=== PATIENT | female | born 1935 | race Caucasian/White ===

== ENCOUNTER 2017-01-04 16:59 | Emergency (ER) | payer OTHER, MEDICARE ==
[2017-01-04 17:03] VITALS: BP 149/66; PULSE 76; TEMP 97.8; BMI 27.4
--- NOTE | 2017-01-04 17:23 | PDOC ---
History of Present Illness - General History Source: Patient Exam Limitations: No Limitations - History of Present Illness Initial Comments: 01/04/17 18:33 The patient is a 81 year old female, with a significant past medical history of HTN who presents to the emergency department with headache and numbness to the left side of the head since last night. The patient reports last night having a gradual worsenig headache that at it's worst was 10/10 in pain intesnity lasted ~45 min, and afterewards she developed a tingling sensation in her scalp on the left side. The patient reports taking Tylenol with the onset of her symptoms last night eliciting some alleviation of her headache, which has mostly resolved upon ED arrival. She called her doctor who told her to come to the ED for evaluation. She describes her numbness/tingling is localized at the top/ left side of her head. She denies any visionc hanges, back pain, changes in her speech, or any UE/LE numbness/weakness and tingling. She also arrives with some neck stiffness/pain that she gets occasionally. She denies recent fevers, chills , weakness or dizziness. She denies recent nausea, vomit, diarrhea or constipation. She denies recent dysuria, frequency, urgency or hematuria. She denies recent chest pain or shortness of breath. Allergies: See Nursing Notes Past surgical history: None reported. Social history: Nonsmoker. Denies EtOH use and recreational drug use. Primary Care Physician: <Etienne Loco - Last Filed: 01/04/17 18:33> <Edson Callahan - Last Filed: 01/04/17 19:03> <Rosanne Mast - Last Filed: 01/04/17 20:51> - General Chief Complaint: Head/Neck problem Stated Complaint: PCP SENT/NUMBNESS Time Seen by Provider: 01/04/17 17:16 Past History <Etienne Loco - Last Filed: 01/04/17 18:33> - Past Medical History HTN: Yes - Surgical History Abdominal Surgery: Yes (sbo) Cholecystectomy: Yes - Psycho/Social/Smoking Cessation Hx Anxiety: No Suicidal Ideation: No Smoking History: Never smoked Hx Alcohol Use: No Drug/Substance Use Hx: No Substance Use Type: None <Edson Callahan - Last Filed: 01/04/17 19:03> <Rosanne Mast - Last Filed: 01/04/17 20:51> - Past Medical History Allergies/Adverse Reactions: Allergies Allergy/AdvReac Type Severity Reaction Status Date / Time levofloxacin [From Levaquin] Allergy Verified 01/04/17 17:03 meperidine HCl [From Demerol] Allergy Verified 01/04/17 17:03 Penicillins Allergy Verified 01/04/17 17:03 Home Medications: Ambulatory Orders Unobtainable [Unobtainable] 03/17/15 Review of Systems - Review of Systems Able to Perform ROS?: Yes Comments:: 01/04/17 18:33 CONSTITUTIONAL: No reported: Fever, Chills, Diaphoresis, Generalized Weakness, Malaise, Loss of Appetite HEENT: No reported: Rhinorrhea, Nasal Congestion, Throat Pain, Throat Swelling, Difficulty Swallowing, Mouth Swelling, Ear Pain, Eye Pain, Visual Changes CARDIOVASCULAR: No reported: Chest Pain, Syncope, Palpitations, Irregular Heart Rate, Lightheadedness, Peripheral Edema RESPIRATORY: No reported: Cough, Shortness of Breath, SOB with Exertion, Orthopnea, Wheezing , Stridor, Hemoptysis GASTROINTESTINAL: No reported: Abdominal pain, Abdominal Distension, Nausea, Vomiting, Diarrhea, Constipation, Melena, Hematochezia GENITOURINARY: No reported: Dysuria, Frequency, Urgency, Hesitancy, Flank Pain, Genital Pain MUSCULOSKELETAL: +mild Neck Pain. No reported: Myalgia, Arthralgia, Joint Swelling, Back pain SKIN: No reported: Rash, Itching, Pallor HEMATOLOGIC/IMMUNOLOGIC: No reported: Easy Bleeding, Easy Bruising, Lymphadenopathy, Frequent infections ENDOCRINE: No reported: Unexplained Weight Gain, Unexplained Weight Loss, Heat Intolerance , Cold Intolerance NEUROLOGIC: +Headache, head numbness. No reported: Focal Weakness, Paresthesias, Vertigo, Lightheadedness, Unsteady Gait, Seizure, Mental Status Changes, Incontinence PSYCHIATRIC: No reported: Anxiety, Depression <Etienne Loco - Last Filed: 01/04/17 18:33> *Physical Exam - Vital Signs Last Vital Signs Temp Pulse Resp BP Pulse Ox 97.8 F 76 20 149/66 96 01/04/17 17:00 01/04/17 17:00 01/04/17 17:00 01/04/17 17:00 01/04/17 17:00 - Physical Exam Comments: 01/04/17 18:33 GENERAL: The patient is awake, alert, and fully oriented, Nontoxic - in no acute distress. HEAD: Normocephalic, atraumatic. EYES: extraocular movements intact, sclera anicteric, conjunctiva clear. ENT: Normal voice, Moist mucous membranes. NECK: Normal range of motion, supple, No mildline cervical tenderness LUNGS: Breath sounds equal, clear to auscultation bilaterally. No wheezes, no rhonchi, no rales. HEART: Regular rate and rhythm, without murmur, rub or gallop. ABDOMEN: Soft, nontender, normoactive bowel sounds. No guarding, no rebound.No CVA tenderness EXTREMITIES: Normal range of motion, no edema. No clubbing or cyanosis. No cords , erythema, or tenderness. NEURO: Mental status: The patient is oriented x3. Cranial nerves: Cranial nerves II through XII are intact Motor: The upper extremities are 5 over 5 in all muscle groups. The lower extremities are 5 over 5 in all muscle groups. No pronator drift. Sensation: Sensation is intact to light touch throughout. with exception of her calep along C2 distription on left side where she states she can feels strange, Neg romberg Cerebellar: Sejisu-cqgwva-zehk is normal in both upper extremities. Heel-knee- roblero is normal in both lower extremities. Reflexes: 2+ and symmetric in the upper and lower extremities. Gait: Normal. Heel and toe walking are normal. Tandem gait is normal. PSYCH: Normal mood, normal affect. SKIN: Warm, Dry, normal turgor. <Etienne Loco - Last Filed: 01/04/17 18:33> - Vital Signs Last Vital Signs Temp Pulse Resp BP Pulse Ox 97.8 F 76 20 149/66 96 01/04/17 17:00 01/04/17 17:00 01/04/17 17:00 01/04/17 17:00 01/04/17 17:00 <Edson Callahan - Last Filed: 01/04/17 19:03> - Vital Signs Last Vital Signs Temp Pulse Resp BP Pulse Ox 97.8 F 76 20 149/66 96 01/04/17 17:00 01/04/17 17:00 01/04/17 17:00 01/04/17 17:00 01/04/17 17:00 <Rosanne Mast - Last Filed: 01/04/17 20:51> ED Treatment Course - LABORATORY CBC & Chemistry Diagram: 01/04/17 18:00 01/04/17 18:00 <Etienne Loco - Last Filed: 01/04/17 18:33> - LABORATORY CBC & Chemistry Diagram: 01/04/17 18:00 01/04/17 18:00 <Edson Callahan - Last Filed: 01/04/17 19:03> - LABORATORY CBC & Chemistry Diagram: 01/04/17 18:00 01/04/17 18:00 - ADDITIONAL ORDERS Additional order review: Laboratory Results 01/04/17 18:00 Sodium 133 L Potassium 4.1 Chloride 93 L Carbon Dioxide 29 Anion Gap 11 BUN 23 H Creatinine 0.8 Creat Clearance w eGFR > 60 Random Glucose 110 H Calcium 9.8 Total Bilirubin 1.1 H AST 23 ALT 24 Alkaline Phosphatase 82 Total Protein 8.2 Albumin 4.0 01/04/17 18:00 RBC 5.09 MCV 81.8 MCHC 34.0 RDW 13.7 MPV 8.1 Neutrophils % 68.8 Lymphocytes % 19.3 Monocytes % 9.5 Eosinophils % 1.2 Basophils % 1.2 - Medications Given in the ED: ED Medications Discontinued Medications Generic Name Dose Route Start Last Admin Trade Name Elenita PRN Reason Stop Dose Admin Metoclopramide HCl 10 mg 01/04/17 17:47 01/04/17 18:09 Reglan Injection - IVPUSH 01/04/17 17:48 10 mg ONCE ONE Administration <Rosanne Mast - Last Filed: 01/04/17 20:51> Medical Decision Making - Medical Decision Making 01/04/17 17:48 81y F hx of htn, sent by PMD for evaluation of headache and scalp tingling. headache resolved, now pt iwth tingling/sensation change on her L scalp, sensation intact but ?c2 radiculopathy? consider possible cva however the distribtion of her sensation are highly atypical neuro exam unremarkable will obtain ct head, cspine pt well appearing otherwise A portion of this note was documented by scribe services under my direction. I have reviewed the details of the note, within reason, and agree with the documentation with the following case summary and management plan written by me 01/04/17 19:03 pt will be signed out to dr. velasquez to fu with results and dispo patient <Edson Callahan - Last Filed: 01/04/17 19:03> - Medical Decision Making 01/04/17 20:[address] Johnnie Kelly who is covering for Dr. Cliff Sterling (via answering service) Awaiting call back 01/04/17 20:51 Patient's case discussed with Dr. Kelly <Rosanne Mast - Last Filed: 01/04/17 20:51> *DC/Admit/Observation/Transfer - Attestations Scribe Attestion: 01/04/17 17:41 Documentation prepared by Etienne Loco, acting as medical device sales consultant for Edson Callahan MD. <Etienne Loco - Last Filed: 01/04/17 18:33> <Edson Callahan - Last Filed: 01/04/17 19:03> <Rosanne Mast - Last Filed: 01/04/17 20:51> - Referrals Referrals: STAFF,NOT ON [Primary Care Provider] -
[2017-01-04] MEDS ORDERED: METOCLOPRAMIDE HCL INJECTION 10 MG/2 ML VIAL IVPUSH ONE (17:47)
[2017-01-04] MEDS ORDERED: METOCLOPRAMIDE HCL INJECTION 10 MG/2 ML VIAL ONE (18:04)
[2017-01-04 18:09] LABS: BASOPHIL 1.2 % (0-2.0); EOSINOPHIL 1.2 % (0-4.5); MCH 27.8 pg (25.7-33.7); MEAN CELL VOLUME 81.8 fl (80-96); MEAN PLT VOLUME 8.1 fl (7.5-11.1); NEUTROPHILS 68.8 % (42.8-82.8); PLATELET COUNT 317 K/MM3 (134-434); RDW 13.7 % (11.6-15.6); WHITE BLOOD COUNT 10.1 K/mm3 (4.0-10.0)
[2017-01-04 18:32] LABS: ANION GAP 11 (8-16); BILIRUBIN,TOTAL 1.1 mg/dL (0.2-1.0); CALCIUM 9.8 mg/dL (8.5-10.1); CO2 29 mmol/L (21-32); CREATININE 0.8 mg/dL (0.55-1.02); GLUCOSE,RANDOM 110 mg/dL (74-106); SGPT/ALT 24 U/L (12-78); TOT PROT 8.2 g/dl (6.4-8.2)
[2017-01-04 18:33] LABS: ALK PHOS 82 U/L (45-117)
[2017-01-04 18:34] LABS: SGOT/AST 23 U/L (15-37)
--- NOTE | 2017-01-04 20:55 | PDOC ---
*Physical Exam - Vital Signs Last Vital Signs Temp Pulse Resp BP Pulse Ox 97.8 F 76 20 149/66 96 01/04/17 17:00 01/04/17 17:00 01/04/17 17:00 01/04/17 17:00 01/04/17 17:00 <James Nuno - Last Filed: 01/04/17 20:52> - Vital Signs Last Vital Signs Temp Pulse Resp BP Pulse Ox 97.8 F 76 20 149/66 96 01/04/17 17:00 01/04/17 17:00 01/04/17 17:00 01/04/17 17:00 01/04/17 17:00 <Rosanne Mast - Last Filed: 01/04/17 21:05> ED Treatment Course - LABORATORY CBC & Chemistry Diagram: 01/04/17 18:00 01/04/17 18:00 - ADDITIONAL ORDERS Additional order review: Laboratory Results 01/04/17 18:00 Sodium 133 L Potassium 4.1 Chloride 93 L Carbon Dioxide 29 Anion Gap 11 BUN 23 H Creatinine 0.8 Creat Clearance w eGFR > 60 Random Glucose 110 H Calcium 9.8 Total Bilirubin 1.1 H AST 23 ALT 24 Alkaline Phosphatase 82 Total Protein 8.2 Albumin 4.0 01/04/17 18:00 RBC 5.09 MCV 81.8 MCHC 34.0 RDW 13.7 MPV 8.1 Neutrophils % 68.8 Lymphocytes % 19.3 Monocytes % 9.5 Eosinophils % 1.2 Basophils % 1.2 - Medications Given in the ED: ED Medications Discontinued Medications Generic Name Dose Route Start Last Admin Trade Name Freq PRN Reason Stop Dose Admin Metoclopramide HCl 10 mg 01/04/17 17:47 01/04/17 18:09 Reglan Injection - IVPUSH 01/04/17 17:48 10 mg ONCE ONE Administration <James Nuno - Last Filed: 01/04/17 20:52> - LABORATORY CBC & Chemistry Diagram: 01/04/17 18:00 01/04/17 18:00 - ADDITIONAL ORDERS Additional order review: Laboratory Results 01/04/17 18:00 Sodium 133 L Potassium 4.1 Chloride 93 L Carbon Dioxide 29 Anion Gap 11 BUN 23 H Creatinine 0.8 Creat Clearance w eGFR > 60 Random Glucose 110 H Calcium 9.8 Total Bilirubin 1.1 H AST 23 ALT 24 Alkaline Phosphatase 82 Total Protein 8.2 Albumin 4.0 01/04/17 18:00 RBC 5.09 MCV 81.8 MCHC 34.0 RDW 13.7 MPV 8.1 Neutrophils % 68.8 Lymphocytes % 19.3 Monocytes % 9.5 Eosinophils % 1.2 Basophils % 1.2 - Medications Given in the ED: ED Medications Discontinued Medications Generic Name Dose Route Start Last Admin Trade Name Elenita PRN Reason Stop Dose Admin Metoclopramide HCl 10 mg 01/04/17 17:47 01/04/17 18:09 Reglan Injection - IVPUSH 01/04/17 17:48 10 mg ONCE ONE Administration <Rosanne Mast - Last Filed: 01/04/17 21:05> Medical Decision Making - Medical Decision Making 01/04/17 20:[address] Johnnie Kelly who is covering for Dr. Cliff Sterling (via answering service) Awaiting call back 01/04/17 20:51 Patient's case discussed with Dr. Kelly <Rosanne Mast - Last Filed: 01/04/17 21:05> *DC/Admit/Observation/Transfer - Discharge Dispostion Admit: No <James Nuno - Last Filed: 01/04/17 20:52> <Rosanne Mast - Last Filed: 01/04/17 21:05> Diagnosis at time of Disposition: Scalp pain - Referrals Referrals: STAFF,NOT ON [Primary Care Provider] - Cliff Sterling MD [Staff Physician] - - Patient Instructions Printed Discharge Instructions: DI for Numbness/tingling Additional Instructions: Please follow up with Dr. Sterling to continue evaluating the pain as needed. - Post Discharge Activity
== END 2017-01-04 21:03 | disposition home or self-care (01) ==
LOC: JER 16:59
PROC: 3E033GC Introduction of Other Therapeutic Substance into Peripheral Vein, Percutaneous Approach (ICD-10-PCS; principal; 2017-01-04)
DX: R51 Headache (principal); I10 Essential (primary) hypertension
CPT/HCPCS: 36415; 70450-TC; 72125-TC; 80053; 85025; 99282-25

== ENCOUNTER 2017-05-10 17:17 | Emergency (ER) | payer OTHER, MEDICARE ==
[2017-05-10 17:36] VITALS: TEMP 98; BMI 27.6
--- NOTE | 2017-05-10 17:54 | PDOC ---
History of Present Illness - General Chief Complaint: Injury Stated Complaint: FALL INJURY Time Seen by Provider: 05/10/17 17:53 - History of Present Illness Initial Comments: 81 year old female with HTN and HLD presenting with right ankle pain and occipital scalp pain after a mechanical fall. She was walking up two stairs with a plethora of heavy grocery bags and fell backward inverting her ankle and striking the back of her head on the ground. She said she could not bear weight on her ankle directly after the fall and immediately noticed a deformity with swelling. She denies any bleeding or skin breakage. She denies LOC, extended disorientation, palpitations prior to fall, presyncopal sensation prior to fall , speech difficulty or any focal neurological signs. She is not on blood thinners and this is her first fall. 05/10/17 18:12 Past History - Past Medical History Allergies/Adverse Reactions: Allergies Allergy/AdvReac Type Severity Reaction Status Date / Time azithromycin Allergy Verified 05/10/17 17:57 levofloxacin [From Levaquin] Allergy Verified 05/10/17 17:36 lisinopril [From Zestril] Allergy Verified 05/10/17 17:58 meperidine HCl [From Demerol] Allergy Verified 05/10/17 17:36 Penicillins Allergy Verified 05/10/17 17:36 sulphur Allergy Uncoded 05/10/17 17:57 Home Medications: Ambulatory Orders Calcium Carbonate [Super Calcium] 1,200 mg PO DAILY 05/10/17 Cyanocobalamin [Vitamin B12 -] 1,000 mcg PO DAILY 05/10/17 Irbesartan/Hydrochlorothiazide [Irbesartan-Hctz 300-12.5 mg Tb] 1 each PO AM Metoprolol Succinate [Toprol Xl -] 100 mg PO DAILY 05/10/17 Metoprolol Succinate [Toprol Xl] 50 mg PO HS 05/10/17 Multivit-Min/FA/Lycopen/Lutein [Centrum Silver Tablet] 1 each PO DAILY 05/10/17 Nifedipine ER [Procardia Xl -] 60 mg PO DAILY 05/10/17 Pitavastatin Calcium [Livalo] 2 mg PO HS 05/10/17 Vitamin B Complex Vit C No.4 [Super B Complex] 150 mg PO DAILY 05/10/17 HTN: Yes Hypercholesterolemia: Yes - Surgical History Abdominal Surgery: Yes (sbo) Cholecystectomy: Yes - Suicide/Smoking/Psychosocial Hx Smoking History: Never smoked Hx Alcohol Use: No Drug/Substance Use Hx: No Substance Use Type: None Review of Systems - Review of Systems Constitutional: No: Chills, Fever HEENTM: No: Blurred Vision, Recent change in vision Respiratory: No: Cough Cardiac (ROS): No: Chest Pain ABD/GI: No: Nausea, Poor Appetite, Vomiting : No: Dysuria, Hematuria Musculoskeletal: Yes: Joint Pain, Joint Swelling Neurological: No: Headache, Numbness *Physical Exam - Vital Signs Last Vital Signs Temp Pulse Resp BP Pulse Ox 98.0 F 82 20 154/60 96 05/10/17 17:32 05/10/17 17:32 05/10/17 17:32 05/10/17 17:32 05/10/17 17:32 - Physical Exam General Appearance: Yes: Nourished, Appropriately Dressed. No: Apparent Distress HEENT: positive: EOMI, ANDRÉS, Normal ENT Inspection, Normal Voice, Other (Scalp hematoma in superior left occiput.) Neck: positive: Trachea midline, Normal Thyroid. negative: Tender Respiratory/Chest: positive: Lungs Clear, Normal Breath Sounds. negative: Chest Tender, Respiratory Distress Cardiovascular: positive: Regular Rhythm, Regular Rate, S1, S2. negative: Murmur Gastrointestinal/Abdominal: positive: Normal Bowel Sounds, Flat, Soft. negative : Tender Musculoskeletal: negative: Normal Inspection (Right LE with significant edema around the lateral and medial maleolus. Unable to palpate or range ankle without pain. Some distal tibial and fibular tenderness too. No tenderness or Limited ROM in RLE or at left knee or left hip.) Extremity: positive: Normal Capillary Refill, Normal Inspection. negative: Normal Range of Motion, Tender Integumentary: positive: Normal Color, Dry, Warm Neurologic: positive: decision support manager II-XII NML intact, Fully Oriented, Alert, Normal Mood/ Affect, Normal Response ED Treatment Course - LABORATORY CBC & Chemistry Diagram: 05/10/17 18:25 05/10/17 18:25 Medical Decision Making - Medical Decision Making 81 year old female with headache and ankle pain after a fall. Superior occipital hematoma. Subarachnoid hemorrhage found on head CT in central sulcus. Case discussed with Dr. Montero (neurosurgery) at [facility] at 21:30 and he accepted the patient for transfer. Ankle film demonstrated comminuted distal fibula and tibia fractures. Patient transferred to [facility] via ACLS with pressures of 140s/60s and pain controlled on low dose Fentanyl 50 mcg and Tylenol 1g. Films were electronically and physically sent with [facility]. 05/10/17 19:38 05/10/17 22:30 *DC/Admit/Observation/Transfer Diagnosis at time of Disposition: Subarachnoid hemorrhage, Fracture of shaft of tibia - Discharge Dispostion Disposition: TRANSFER ACUTE CARE/OTHER HOSP - Transfer to Acute Care Facility Receiving Facility: [facility].
[2017-05-10 18:36] LABS: EOSINOPHIL 0.9 % (0-4.5); MCH 27.4 pg (25.7-33.7); MCHC 34.1 g/dl (32.0-36.0); MEAN CELL VOLUME 80.2 fl (80-96); MEAN PLT VOLUME 7.8 fl (7.5-11.1); NEUTROPHILS 74.8 % (42.8-82.8); PLATELET COUNT 318 K/MM3 (134-434); RDW 14.3 % (11.6-15.6); WHITE BLOOD COUNT 12.1 K/mm3 (4.0-10.0)
[2017-05-10] MEDS ORDERED: ACETAMINOPHEN 325 MG TABLET (FP) ONE (18:51)
[2017-05-10] MEDS ORDERED: ACETAMINOPHEN 500 MG TABLET (FP) PO ONE (18:53)
[2017-05-10 19:07] LABS: ANION GAP 12 (8-16); BILIRUBIN,TOTAL 1.1 mg/dL (0.2-1.0); CALCIUM 9.4 mg/dL (8.5-10.1); CO2 26 mmol/L (21-32); CREATININE 0.7 mg/dL (0.55-1.02); GLUCOSE,RANDOM 124 mg/dL (74-106); SGOT/AST 17 U/L (15-37); SGPT/ALT 20 U/L (12-78); TOT PROT 7.9 g/dl (6.4-8.2)
[2017-05-10 19:08] LABS: ALK PHOS 76 U/L (45-117)
[2017-05-10 19:23] LABS: INR 0.91 (0.82-1.09); PROTHROMBIN TIME (PATIENT) 10.3 SEC (9.98-11.88)
--- NOTE | 2017-05-10 20:55 | PDOC ---
Attending Attestation - Resident Resident Name: Mirlande Rojas - ED Attending Attestation I have performed the following: I have examined & evaluated the patient, The case was reviewed & discussed with the resident, I agree w/resident's findings & plan, Exceptions are as noted - HPI HPI: 81 yo F history HTN, HL presents with L ankle pain s/p fall down stairs at home. Fall was mechanical, no LOC. She fell down multiple stairs, hitting her head as she fell. No N/V, no weakness, no numbness. No neck stiffness. - Physicial Exam PE: GENERAL: Awake, alert, and fully oriented, in no acute distress HEAD: No signs of trauma EYES: PERRLA, EOMI, sclera anicteric, conjunctiva clear ENT: Auricles normal inspection, hearing grossly normal, nares patent, oropharynx clear without exudates. Moist mucosa NECK: Normal ROM, supple, no lymphadenopathy, JVD, or masses LUNGS: Breath sounds equal, clear to auscultation bilaterally. No wheezes, and no crackles HEART: Regular rate and rhythm, normal S1 and S2, no murmurs, rubs or gallops ABDOMEN: Soft, nontender, normoactive bowel sounds. No guarding, no rebound. No masses EXTREMITIES: +Deformity to the L ankle, +tenderness and swelling to medial and lateral malleoli. Remainder of extremities with normal range of motion, no edema. No clubbing or cyanosis. No cords, erythema, or tenderness NEUROLOGICAL: Cranial nerves II through XII grossly intact. Normal speech. Gait not tested due to nature of complaint. Motor and sensation intact. SKIN: Warm, Dry, normal turgor, no rashes or lesions noted. - Medical Decision Making Pt is s/p mechanical fall down stairs, with head injury and ankle injury. Found to have SAH, will transfer to [facility]. Also found to have L tib/fib fracture. Given tylenol, then fentanyl for pain. BP is slightly elevated, but not to the point of requiring medication. Not on ASA, plavix, or any other anticoagulants.
[2017-05-10 21:02] VITALS: BP 140/67; PULSE 76
== END 2017-05-10 21:02 | disposition short-term general hospital (02) ==
LOC: JER 17:17
PROC: 3E033NZ Introduction of Analgesics, Hypnotics, Sedatives into Peripheral Vein, Percutaneous Approach (ICD-10-PCS; principal; 2017-05-10)
DX: S06.6X0A Traumatic subarachnoid hemorrhage without loss of consciousness, initial encounter (principal); S82.841A Displaced bimalleolar fracture of right lower leg, initial encounter for closed fracture; W10.8XXA Fall (on) (from) other stairs and steps, initial encounter; Y93.89 Activity, other specified; Y92.018 Other place in single-family (private) house as the place of occurrence of the external cause; I10 Essential (primary) hypertension; E78.00 Pure hypercholesterolemia, unspecified
CPT/HCPCS: 36415; 70450-TC; 73610-TC-LT; 73630-TC-LT; 80053; 85025; 85610; 86850; 86900; 86901; 99284-25

== ENCOUNTER 2017-09-16 20:31 | Inpatient (IN) | payer OTHER, MEDICARE ==
--- NOTE | 2017-09-16 20:58 | PDOC ---
History of Present Illness - General History Source: Patient, Family, Old Records Exam Limitations: No Limitations - History of Present Illness Initial Comments: 09/16/17 23:46 Patient is an 82 year old female with a significant past medical history of HTN and HLD, who presents to the ED with complaints of vomiting that began monday afternoon. Patient reports experiencing multiple episodes of vomiting monday afternoon that she states subsided, today. She reports experiencing 2 episodes of vomiting this afternoon after eating some rice, prompting her to come into the ED for further evaluation. Patient reports experiencing 2 episodes of loose stool this afternoon. She reports experiencing associated symptoms of nausea and diffuse abdominal pain that she says has been chronic since earlier today. . Denies chest pain, Sob. Denies fevers, chills. Denies contact with sick individuals, out of state travelling. Denies trauma to affected area. Denies any other symptoms. Allergies: Azithromycin, Levofloxacin, Lisinopril, Meperidine HCL, Morphine, Penicillin, Sulfur. Social history: Lives alone, with aid. No smoking. No alcohol. No illicit drugs. Surgical history: Cholecystectomy, abdominal surgery, Left ankle surgery. PMD: Dr. Sterling <Seb Collins - Last Filed: 09/16/17 23:46> <Nancie Osorio - Last Filed: 09/17/17 05:54> - General Chief Complaint: Pain Stated Complaint: ABDOMINAL PAIN Time Seen by Provider: 09/16/17 20:45 Past History <Seb Collins - Last Filed: 09/16/17 23:46> - Past Medical History HTN: Yes Hypercholesterolemia: Yes - Surgical History Abdominal Surgery: Yes (sbo) Cholecystectomy: Yes - Suicide/Smoking/Psychosocial Hx Smoking History: Never smoked Hx Alcohol Use: No Drug/Substance Use Hx: No Substance Use Type: None <Nancie Osorio - Last Filed: 09/17/17 05:54> - Past Medical History Allergies/Adverse Reactions: Allergies Allergy/AdvReac Type Severity Reaction Status Date / Time azithromycin Allergy Verified 09/16/17 20:41 levofloxacin [From Levaquin] Allergy Verified 09/16/17 20:41 lisinopril [From Zestril] Allergy Verified 09/16/17 20:41 meperidine HCl [From Demerol] Allergy Verified 09/16/17 20:41 morphine Allergy Verified 09/16/17 22:25 Penicillins Allergy Verified 09/16/17 20:41 sulphur Allergy Uncoded 09/16/17 20:41 Home Medications: Ambulatory Orders Calcium Carbonate [Super Calcium] 1,200 mg PO DAILY 05/10/17 Cyanocobalamin [Vitamin B12 -] 1,000 mcg PO DAILY 05/10/17 Irbesartan/Hydrochlorothiazide [Irbesartan-Hctz 300-12.5 mg Tb] 1 each PO AM Metoprolol Succinate [Toprol Xl -] 100 mg PO DAILY 05/10/17 Metoprolol Succinate [Toprol Xl] 50 mg PO HS 05/10/17 Multivit-Min/FA/Lycopen/Lutein [Centrum Silver Tablet] 1 each PO DAILY 05/10/17 Nifedipine ER [Procardia Xl -] 60 mg PO DAILY 05/10/17 Pitavastatin Calcium [Livalo] 2 mg PO HS 05/10/17 Vitamin B Complex Vit C No.4 [Super B Complex] 150 mg PO DAILY 05/10/17 Review of Systems - Review of Systems Able to Perform ROS?: Yes Comments:: 09/16/17 23:46 GENERAL/CONSTITUTIONAL: No fever or chills. No weakness. HEAD, EYES, EARS, NOSE AND THROAT: No change in vision. No ear pain or discharge. No sore throat. CARDIOVASCULAR: No chest pain or shortness of breath. RESPIRATORY: No cough, wheezing, or hemoptysis. GASTROINTESTINAL: +Nausea, +Vomiting. +Diarrhea. GENITOURINARY: No dysuria, frequency, or change in urination. MUSCULOSKELETAL: No joint or muscle swelling or pain. No neck or back pain. SKIN: No rash NEUROLOGIC: No headache, vertigo, loss of consciousness, or change in strength/ sensation. ENDOCRINE: No increased thirst. No abnormal weight change. HEMATOLOGIC/LYMPHATIC: No anemia, easy bleeding, or history of blood clots. ALLERGIC/IMMUNOLOGIC: No hives or skin allergy. <Seb Collins - Last Filed: 09/16/17 23:46> *Physical Exam - Vital Signs Last Vital Signs Temp Pulse Resp BP Pulse Ox 97.8 F 79 16 105/66 97 09/16/17 20:41 09/16/17 20:41 09/16/17 20:41 09/16/17 20:41 09/16/17 20:41 - Physical Exam Comments: 09/16/17 23:46 GENERAL: +Face flushed. Awake, alert, and fully oriented, in no acute distress HEAD: No signs of trauma EYES: PERRLA, EOMI, sclera anicteric, conjunctiva clear ENT: Auricles normal inspection, hearing grossly normal, nares patent, oropharynx clear without exudates. Moist mucosa NECK: Normal ROM, supple, no lymphadenopathy, JVD, or masses LUNGS: Breath sounds equal, clear to auscultation bilaterally. No wheezes, and no crackles HEART: Regular rate and rhythm, normal S1 and S2, no murmurs, rubs or gallops ABDOMEN: +Distended. +Very gassy. Soft, nontender, normoactive bowel sounds. No guarding, no rebound. No masses EXTREMITIES: +Calves non swollen no tender non distended. +Distal left ankle surgery Normal range of motion, no edema. No clubbing or cyanosis. No cords, erythema, or tenderness NEUROLOGICAL: Cranial nerves II through XII grossly intact. Normal speech, normal gait SKIN: Warm, Dry, normal turgor, no rashes or lesions noted. <Seb Collins - Last Filed: 09/16/17 23:46> - Vital Signs Last Vital Signs Temp Pulse Resp BP Pulse Ox 97.8 F 79 16 105/66 97 09/16/17 20:41 09/16/17 20:41 09/16/17 20:41 09/16/17 20:41 09/16/17 20:41 <Nancie Osorio - Last Filed: 09/17/17 05:54> ED Treatment Course - LABORATORY CBC & Chemistry Diagram: 09/16/17 21:50 09/16/17 21:50 - ADDITIONAL ORDERS Additional order review: Laboratory Results 09/16/17 09/16/17 09/16/17 21:50 21:50 21:50 PT with INR INR PTT (Actin FS) Sodium Potassium Chloride Carbon Dioxide Anion Gap BUN Creatinine Creat Clearance w eGFR Random Glucose Lactic Acid 2.6 H* Calcium Total Bilirubin AST ALT Alkaline Phosphatase Creatine Kinase 45 Troponin I < 0.02 Total Protein Albumin Blood Type O POSITIVE Antibody Screen Negative 09/16/17 09/16/17 21:50 21:50 PT with INR 11.00 INR 0.97 PTT (Actin FS) 28.2 Sodium 134 L Potassium 3.4 L Chloride 92 L Carbon Dioxide 32 Anion Gap 10 BUN 15 Creatinine 0.9 Creat Clearance w eGFR > 60 Random Glucose 117 H Lactic Acid Calcium 9.7 Total Bilirubin 1.3 H AST 12 L ALT 18 Alkaline Phosphatase 99 Creatine Kinase Troponin I Total Protein 8.0 Albumin 4.1 Blood Type Antibody Screen 09/16/17 21:50 RBC 4.90 MCV 81.0 MCHC 34.1 RDW 15.6 MPV 8.4 Neutrophils % 73.2 Lymphocytes % 13.1 Monocytes % 12.6 H Eosinophils % 0.8 Basophils % 0.3 - Medications Given in the ED: ED Medications Discontinued Medications Generic Name Dose Route Start Last Admin Trade Name Elenita PRN Reason Stop Dose Admin Glycerin 1 each 09/16/17 21:12 09/16/17 21:51 Glycerin Suppository Adult - MN 09/16/17 21:13 1 each ONCE ONE Administration Morphine Sulfate 2 mg 09/16/17 22:00 09/16/17 22:36 Morphine Injection - IVPUSH 09/16/17 22:01 Not Given ONCE ONE Ondansetron HCl 4 mg 09/16/17 22:27 09/16/17 22:31 Zofran Injection IVPB 09/16/17 22:28 4 mg ONCE ONE Administration Sodium Chloride 1,000 ml 09/16/17 21:11 09/16/17 21:51 Normal Saline - IV 09/16/17 21:12 1,000 ml ONCE STA Administration <Seb Collins - Last Filed: 09/16/17 23:46> - LABORATORY CBC & Chemistry Diagram: 09/16/17 21:50 09/16/17 21:50 <Nancie Osorio - Last Filed: 09/17/17 05:54> Medical Decision Making - Medical Decision Making 09/16/17 23:34 Pt comes with abd pain and appearing unwell. She is breathing heavily and she is gassy. On exam pt is found to have hypoxia on room air. CXR shows pneumonia. Pt has gassy distended belly. SHe is passing gas and diarrhea stools. However she has a hx of diverticulitis and she wants to make sure that she is not haviing episode of diverticulitis again. 09/17/17 01:01 Patient Name: MAURISIO SIMON THIS IS A PRELIMINARY REPORT FROM [facility] DATE OF SERVICE: 2017-09-16 23:26:50 IMAGES: [id number] EXAM: CHEST CT WITHOUT CONTRAST HISTORY: Ileus and pneumonia COMPARISON: None. FINDINGS: Heart:: There is coronary artery calcification Pericardium: not thickened Thoracic aorta and great vessels: There are mild atherosclerotic changes in the thoracic aorta Superior vena cava and inferior vena cava: Normal Pulmonary arteries: Normal Thoracic esophagus: Normal Mediastinal lymph nodes: Normal Thyroid is diffusely enlarged Central airways: Normal There is subsegmental atelectasis at the lung bases. Lungs There is a 4 mm nonspecific pulmonary nodule in the right upper lobe. There is a calcified granuloma in the left upper lobe: Pleural spaces: Normal with no pneumothorax or pleural fluid Chest wall: Normal Abdomen Liver: Normal Spleen: Normal Pancreas: Normal Healed surgically absent: Normal Stomach: Normal Small bowel: Proximal segments of small bowel are distended with air-fluid levels. There is a transition in the appearance and caliber of the small bowel the left lower quadrant Large bowel: Normal Appendix: Normal Adrenals:Normal Kidneys: Normal Vascular: Normal Lymphatic: Normal Peritoneal: No free peritoneal air or fluid Pelvis: Uterus: normal Rectum: Normal Bladder: Normal The inferior thorax: Normal General: Skeletal: There are bilateral hip replacements Abdominal wall: Normal IMPRESSION: Small bowel obstruction. 4 mm nonspecific pulmonary nodule in the right upper lobe likely reflects a granuloma 09/17/17 01:02 Pt presents with hypoxia on room air. She will be admitted to the hospitalist for IV abx, as she likely has an early pneumonia. <Nancie Osorio - Last Filed: 09/17/17 05:54> *DC/Admit/Observation/Transfer - Attestations Scribe Attestion: 09/16/17 23:46 Documentation prepared by Seb Collins, acting as medical clinic manager for Nancie Osorio MD/. <Seb Collins - Last Filed: 09/16/17 23:46> - Discharge Dispostion Admit: Yes <Nancie Osorio - Last Filed: 09/17/17 05:54> Diagnosis at time of Disposition: Pneumonia, Hypoxemia - Discharge Dispostion Condition at time of disposition: Guarded
[2017-09-16] MEDS ORDERED: SODIUM CHLORIDE 0.9% 1000 ML INFUS.BAG IV STA (21:11)
[2017-09-16] MEDS ORDERED: GLYCERIN 1 RECTAL SUPPOSITORY, ADULT PR ONE (21:12)
[2017-09-16] MEDS: morphine CARPU-JECT 2 MG/1 ML DISP.SYRIN IVPUSH ONE ×2 (22:03→22:36)
[2017-09-16 22:05] LABS: BASO % 0.3 % (0-2.0); EOS % 0.8 % (0-4.5); HEMATOCRIT 39.7 % (32.4-45.2); HEMOGLOBIN 13.6 GM/dL (10.7-15.3); LYMPH % 13.1 % (8-40); MCH 27.7 pg (25.7-33.7); MCHC 34.1 g/dl (32.0-36.0); MEAN PLT VOLUME 8.4 fl (7.5-11.1); MONO % 12.6 % (3.8-10.2); NEUT % 73.2 % (42.8-82.8); PLATELET COUNT 332 K/MM3 (134-434); RDW 15.6 % (11.6-15.6); WHITE BLOOD COUNT 12.6 K/mm3 (4.0-10.0)
[2017-09-16] MEDS ORDERED: GLYCERIN 1 RECTAL SUPPOSITORY, ADULT RC ONE (22:06)
[2017-09-16] MEDS ORDERED: MORPHINE SULFATE 10 MG/1 ML *VIAL ONE (22:06)
[2017-09-16 22:19] LABS: INR 0.97 (0.82-1.09)
[2017-09-16 22:21] LABS: ACTIVATED PTT 28.2 SECONDS (26.9-34.4)
[2017-09-16] MEDS ORDERED: ONDANSETRON 4 MG/2 ML VIAL IVPB ONE (22:27)
[2017-09-16] MEDS ORDERED: ACETAMINOPHEN INJECTION 100 ML IVPB ONE (22:28)
[2017-09-16] MEDS ORDERED: ONDANSETRON 4 MG/2 ML VIAL ONE (22:28)
[2017-09-16 22:30] LABS: ALBUMIN 4.1 g/dl (3.4-5.0); ALK PHOS 99 U/L (45-117); ANION GAP 10 (8-16); BILIRUBIN,TOTAL 1.3 mg/dL (0.2-1.0); BLOOD UREA NITROGEN 15 mg/dL (7-18); CALCIUM 9.7 mg/dL (8.5-10.1); CHLORIDE 92 mmol/L (98-107); CO2 32 mmol/L (21-32); CREATININE 0.9 mg/dL (0.55-1.02); GLUCOSE,RANDOM 117 mg/dL (74-106); POTASSIUM 3.4 mmol/L (3.5-5.1); SGOT/AST 12 U/L (15-37); SGPT/ALT 18 U/L (12-78); SODIUM 134 mmol/L (136-145)
[2017-09-16] MEDS ORDERED: DOXYCYCLINE INJECTION 100 MG in DEXTROSE 5%-WATER - 100 ML IVPB ONE (22:42)
[2017-09-17 01:24] LABS: VENOUS PC02 46.4 mmHg (38-52); VENOUS PH 7.45 (7.32-7.42)
--- NOTE | 2017-09-17 01:52 | HP ---
Admitting History and Physical - Primary Care Physician PCP: Cliff Sterling - Admission Chief Complaint: Abdominal Pain, Vomiting History of Present Illness: This is a 82 y/o woman who presents to the ED with non-bilious vomiting, diffuse abdominal pain since last Monday. Patient reports having 2 loose BMs tonight. Patient denies fever, chills, dizziness, CP, constipation, melena, hematochezia, dysuria. History Source: Patient, Medical Record Limitations to Obtaining History: No Limitations - Past Medical History Cardiovascular: Yes: HTN, Hyperlipdemia Gastrointestinal: Yes: GERD, Other (Bowel Obstruction) Heme/Onc: Yes: Other (Lymphoma) - Past Surgical History Past Surgical History: Yes: Cholecystectomy, Joint Replacement (bilateral hip) Additional Past Surgical History: Distal Left Ankle - Smoking History Smoking history: Never smoked - Alcohol/Substance Use Hx Alcohol Use: No History of Substance Use: reports: None - Social History History of Recent Travel: No Home Medications - Allergies Allergies/Adverse Reactions: Allergies Allergy/AdvReac Type Severity Reaction Status Date / Time azithromycin Allergy Verified 09/16/17 20:41 levofloxacin [From Levaquin] Allergy Verified 09/16/17 20:41 lisinopril [From Zestril] Allergy Verified 09/16/17 20:41 meperidine HCl [From Demerol] Allergy Verified 09/16/17 20:41 morphine Allergy Verified 09/16/17 22:25 Penicillins Allergy Verified 09/16/17 20:41 sulphur Allergy Uncoded 09/16/17 20:41 - Home Medications Home Medications: Ambulatory Orders Metoprolol Succinate 50 mg PO DAILY 09/17/17 Metoprolol Succinate 100 mg PO DAILY 09/17/17 Family Disease History - Family Disease History Family History: Unable to Obtain Review of Systems - Review of Systems HENT: reports: No Symptoms Neck: reports: No Symptoms Cardiovascular: reports: No Symptoms Respiratory: reports: No Symptoms Gastrointestinal: reports: Abdominal Pain, Diarrhea, Vomiting Genitourinary: reports: No Symptoms Breasts: reports: No Symptoms Reported Musculoskeletal: reports: No Symptoms Integumentary: reports: No Symptoms Neurological: reports: No Symptoms Endocrine: reports: No Symptoms Hematology/Lymphatic: reports: No Symptoms Psychiatric: reports: No Symptoms Physical Examination Vital Signs: Vital Signs Temperature 97.8 F 09/16/17 20:41 Pulse Rate 79 09/16/17 20:41 Respiratory Rate 16 09/16/17 20:41 Blood Pressure 105/66 09/16/17 20:41 O2 Sat by Pulse Oximetry (%) 97 09/16/17 20:41 Constitutional: Yes: No Distress, Calm, Obese Eyes: Yes: WNL, Conjunctiva Clear, EOM Intact, PERRL HENT: Yes: WNL, Atraumatic, Normocephalic Neck: Yes: WNL, Supple, Trachea Midline Cardiovascular: Yes: WNL, Regular Rate and Rhythm, S1, S2 Respiratory: Yes: Diminished (right base) Gastrointestinal: Yes: Distention, Hyperactive Bowel Sounds Renal/: Yes: WNL Breast(s): Yes: WNL Musculoskeletal: Yes: WNL Extremities: Yes: WNL Edema: Yes Edema: LLE: Trace Integumentary: Yes: Venous Stasis Changes Neurological: Yes: WNL, Alert, Cran Nerves II-XII Intact ...Motor Strength: WNL Psychiatric: Yes: WNL, Alert, Oriented Labs: CBC, BMP 09/16/17 21:50 09/16/17 21:50 Troponin, BNP 09/16/17 21:50 Troponin I < 0.02 B-Natriuretic Peptide Imaging - Results Chest X-ray: Image Reviewed Cat Scan: Report Reviewed, Image Reviewed EKG: Image Reviewed Problem List - Problems (1) SBO (small bowel obstruction) Code(s): K56.609 - UNSP INTESTNL OBST, UNSP TO PARTIAL VERSUS COMPLETE OBST (2) Pneumonia Code(s): J18.9 - PNEUMONIA, UNSPECIFIED ORGANISM Qualifiers: Pneumonia type: due to Pneumococcus (3) HTN (hypertension) Code(s): I10 - ESSENTIAL (PRIMARY) HYPERTENSION (4) HLD (hyperlipidemia) Code(s): E78.5 - HYPERLIPIDEMIA, UNSPECIFIED (5) GERD (gastroesophageal reflux disease) Code(s): K21.9 - GASTRO-ESOPHAGEAL REFLUX DISEASE WITHOUT ESOPHAGITIS (6) DVT prophylaxis Code(s): KKW2599 - Assessment/Plan This is a 82 y/o woman with a PMHx of: HTN, HLD, GERD, SBO, Subarachnoid Hemorrhage (s/p mechanical fall, 05/10/17). Admitted for Partial SBO, Sepsis, Pneumonia. Plan: 1.Partial SBO- CTAP report- mid to distal small bowel obstruction, a few diverticula in the colon without evidence of acute diverticulitis. Appreciate Surgical consult, Will hold off on NGT, secondary to no active emesis, on exam: abdomen is distended but soft. Keep NPO, gentle IVF, Monitor CBC initial WBC 12.6, LA 2.6~4.8, fluid bolus given will repeat LA in am, not likely mesenteric ischemia. However will continue to monitor vitals, and labs closely. 2. Sepsis- Likely secondary to Pneumonia, qSOFA 1, SIRS Criteria Met II- WBC 12.6, LA 2.6, Blood Cultures, Urine Culture pending, NS fluid bolus given, Doxycycline given in ED, will start Ceftriaxone, Azithromycin for CAP 3. Pneumonia- [id number] 1, CTAP/CT Chest report mild bibasal atelectatic changes L> R, mild atelectatic changes in the dependent portion of the left upper lobe. cannot rule out pneumonia. +leukocytosis, +lactic acidemia, blood cultures- pending. patient treated empirically with Doxycycline in ED, now will treat for CAP, ID consult appreciated 4. HTN- controlled, monitor BP, will hold meds for now secondary to SBO 5. HLD- controlled, hold meds see above 6. GERD- PPI 7. DVT ppx- Heparin SQ Code Status: Full Code Dispo: Requires Inpatient Care Visit type - Emergency Visit Emergency Visit: Yes ED Registration Date: 09/17/17 Care time: The patient presented to the Emergency Department on the above date and was hospitalized for further evaluation of their emergent condition. - New Patient This patient is new to me today: Yes Date on this admission: 09/17/17 - Critical Care Critical Care patient: No Hospitalist Screening - Colonoscopy Questionnaire Colonoscopy Questionnaire: Colonoscopy Questionnaire - Patient: History of colon or rectal polyps, or CA: No History of abdominal radiation therapy as a child: No - Relative: 1 with colon or rectal CA, or polyps at age 60 or younger: No Colon or rectal CA diagnosed at age 45 or younger: No Multiple relatives with colon or rectal CA: No
[2017-09-17 03:35] VITALS: BMI 28.3
[2017-09-17] MEDS ORDERED: ONDANSETRON 4 MG/2 ML VIAL IVPUSH PRN (04:07)
[2017-09-17] MEDS ORDERED: ACETAMINOPHEN 1000 MG/100 ML VIAL (NON FORMULARY) IVPB PRN (04:08)
[2017-09-17] MEDS ORDERED: SODIUM CHLORIDE 250 ML IV STA (04:09)
[2017-09-17] MEDS ORDERED: DEXTROSE 5%-0.45% SALINE 1,000 ML IV SCH (04:15)
[2017-09-17 06:06] LABS: URINE APPEARANCE SLCLOUDY; URINE BILIRUBIN NEGATIVE (NEGATIVE); URINE BLOOD NEGATIVE (NEGATIVE); URINE COLOR YELLOW; URINE GLUCOSE (UA) NEGATIVE (NEGATIVE); URINE KETONE NEGATIVE (NEGATIVE); URINE NITRITE NEGATIVE (NEGATIVE); URINE PROTEIN NEGATIVE (NEGATIVE); URINE UROBILINOGEN NEGATIVE mg/dL (0.2-1.0)
[2017-09-17 06:09] LABS: URINE LEUK ESTERASE 2+ (NEGATIVE)
[2017-09-17 06:10] LABS: EPI CELLS RARE /HPF (FEW); URINE MUCUS RARE
[2017-09-17 07:41] LABS: BASO % 0.3 % (0-2.0); HEMATOCRIT 36.5 % (32.4-45.2); HEMOGLOBIN 12.8 GM/dL (10.7-15.3); LYMPH % 16.3 % (8-40); MCH 28.5 pg (25.7-33.7); MCHC 35.1 g/dl (32.0-36.0); MEAN CELL VOLUME 81.3 fl (80-96); MEAN PLT VOLUME 8.2 fl (7.5-11.1); MONO % 13.6 % (3.8-10.2); NEUT % 68.8 % (42.8-82.8); PLATELET COUNT 310 K/MM3 (134-434); RDW 15.5 % (11.6-15.6); WHITE BLOOD COUNT 9.2 K/mm3 (4.0-10.0)
[2017-09-17 08:13] LABS: ANION GAP 12 (8-16); BLOOD UREA NITROGEN 16 mg/dL (7-18); CALCIUM 9.4 mg/dL (8.5-10.1); CHLORIDE 97 mmol/L (98-107); CO2 30 mmol/L (21-32); GLUCOSE,RANDOM 96 mg/dL (74-106); POTASSIUM 3.2 mmol/L (3.5-5.1); SODIUM 139 mmol/L (136-145)
[2017-09-17 08:20] LABS: CREATININE 0.9 mg/dL (0.55-1.02); N-TERMINAL BNP 508.64 pg/ml (5-450)
[2017-09-17] MEDS ORDERED: POTASSIUM CHLORIDE 10 MEQ in SODIUM CHLORIDE 100 ML IVPB SCH (10:30)
--- NOTE | 2017-09-17 11:08 | CONSULT ---
- Consultation REQUESTING PROVIDER: Isai CONSULT REQUEST: We have been asked to surgically evaluate this patient for nausea/vomiting/abdominal pain PCP:Fide Alex HISTORY OF PRESENT ILLNESS: BRAXTONP who is an 82 y/o female w/ above abdominal c/o' s among others; events started yesterday; she came to the ER for evaluation; pain is crampy; no vomiting since admission; she is having diarrhea and passing flatus; she also ? had CP and SOB ? PMHx: hypertension PSHx: sigmoid colon resection; lap winifred; sbo 3 years ago requiring ex lap and related procedures Home Medications Medication Instructions Recorded Metoprolol Succinate 50 mg PO DAILY 09/17/17 Metoprolol Succinate 100 mg PO DAILY 09/17/17 Allergies Allergy/AdvReac Type Severity Reaction Status Date / Time azithromycin Allergy Verified 09/16/17 20:41 levofloxacin [From Levaquin] Allergy Verified 09/16/17 20:41 lisinopril [From Zestril] Allergy Verified 09/16/17 20:41 meperidine HCl [From Demerol] Allergy Verified 09/16/17 20:41 morphine Allergy Verified 09/16/17 22:25 Penicillins Allergy Verified 09/16/17 20:41 sulphur Allergy Uncoded 09/16/17 20:41 PHYSICAL EXAM: GENERAL: Awake, alert, and fully oriented, in no acute distress. HEAD: Normal with no signs of trauma. EYES: PERRL, sclera anicteric, conjunctiva clear. NECK: Normal ROM, supple without lymphadenopathy, JVD, or masses. ABDOMEN: Soft, nontender, not distended, normoactive bowel sounds, no guarding, no rebound, no masses. No organomegaly. Healed incision above and below the umbilicus w/midline defect and ? reducible hernia MUSCULOSKELETAL: Normal ROM at all joints. No bony deformities or tenderness. No CVA tenderness. UPPER EXTREMITIES: 2+ pulses, warm, well-perfused. No cyanosis. Cap refill <2 seconds. No peripheral edema. LOWER EXTREMITIES: 2+ pulses, warm, well-perfused. No calf tenderness. No peripheral edema. NEUROLOGICAL: Normal speech, gait not observed. PSYCH: Cooperative. Good eye contact. Appropriate mood and affect. SKIN: Warm, dry, normal turgor, no rashes or lesions noted. Vital Signs Temperature 98.1 F 09/17/17 06:00 Pulse Rate 66 09/17/17 06:00 Respiratory Rate 18 09/17/17 06:00 Blood Pressure 103/55 09/17/17 06:00 O2 Sat by Pulse Oximetry (%) 97 09/16/17 20:41 Lab Results WBC 9.2 K/mm3 (4.0-10.0) 09/17/17 07:27 RBC 4.50 M/mm3 (3.60-5.2) 09/17/17 07:27 Hgb 12.8 GM/dL (10.7-15.3) 09/17/17 07:27 Hct 36.5 % (32.4-45.2) 09/17/17 07:27 MCV 81.3 fl (80-96) 09/17/17 07:27 MCHC 35.1 g/dl (32.0-36.0) 09/17/17 07:27 RDW 15.5 % (11.6-15.6) 09/17/17 07:27 Plt Count 310 K/MM3 (134-434) 09/17/17 07:27 Sodium 139 mmol/L (136-145) 09/17/17 07:27 Potassium 3.2 mmol/L (3.5-5.1) L 09/17/17 07:27 Chloride 97 mmol/L (98-107) L 09/17/17 07:27 Carbon Dioxide 30 mmol/L (21-32) 09/17/17 07:27 Anion Gap 12 (8-16) 09/17/17 07:27 BUN 16 mg/dL (7-18) 09/17/17 07:27 Creatinine 0.9 mg/dL (0.55-1.02) 09/17/17 07:27 Random Glucose 96 mg/dL (74-106) 09/17/17 07:27 Calcium 9.4 mg/dL (8.5-10.1) 09/17/17 07:27 Blood Type O POSITIVE 09/16/17 21:50 Antibody Screen Negative 09/16/17 21:50 INR 0.97 (0.82-1.09) 09/16/17 21:50 w/u to date reviewed; CT a/p reviewed IMP: abdo pain; nausea and vomiting; r/o sbo PLAN: Doubt obstructed clinically given the fact that she is passing flatus and having liquid BM's; no evidence of an acute surgical abdomen nevertheless suggest NPO/IVF serial axr's and exams; r/o C. diff; will f/u; replace potassium ; check Mg level. Michael Roche MD FACS Visit type - Case Type Case Type: ED Admission - Emergency Emergency Visit: Yes ED Registration Date: 09/17/17 Care time: The patient presented to the Emergency Department on the above date and was hospitalized for further evaluation of their emergent condition. - New patient This patient is new to me today: Yes Date on this admission: 09/17/17 - Critical Care Critical Care patient: No
--- NOTE | 2017-09-17 12:54 | CON.ID ---
Consult - History of Present Illness History of Present Illness: Asked to evaluate this 82 y.o. female with PMH of diverticulitis s/p resection, SBO s/p lysis of adhesions, s/p cholecystectomy, HTN, HLD, Lt ankle fracture s/ p ORIF 4 months ago presenting from home with c/o abdominal pain/bloating. Pt and son at bedside provided history. Pt had 2 episodes of vomiting 5 days ago, was feeling mildly weak but had no further episodes. 2 days later she had a couple of episodes of loose stools and was feeling gassy. Then 2 days ago began having severe lower abdominal pain. In the ER she had an episode of vomiting but is currently not nauseated. Reports some loose stools. Pt denies recent travel. 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 Denies fever , chills, h/a, chest pain, cough, shortness of breath, dysuria, or melena. Currently states she feels better and has no abdominal pain. - History Source History Provided By: Patient, Family Member Limitations to Obtaining History: No Limitations - Past Medical History Cardio/Vascular: Yes: HTN, Hyperlipdemia Gastrointestinal: Yes: GERD, Other (Bowel Obstruction s/p Ex-lap/ELLY, Diverticulitis s/p resection, cholecystectomy) ENT: Yes: Other (Lt tympanic rupture s/p repair) - Past Surgical History Past Surgical History: Yes: Cholecystectomy - Alcohol/Substance Use Hx Alcohol Use: No History of Substance Use: reports: None - Smoking History Smoking history: Never smoked Have you smoked in the past 12 months: No - Social History 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) History of Recent Travel: No Home Medications - Allergies Allergies/Adverse Reactions: Allergies Allergy/AdvReac Type Severity Reaction Status Date / Time azithromycin Allergy Verified 09/16/17 20:41 levofloxacin [From Levaquin] Allergy Verified 09/16/17 20:41 lisinopril [From Zestril] Allergy Verified 09/16/17 20:41 meperidine HCl [From Demerol] Allergy Verified 09/16/17 20:41 morphine Allergy Verified 09/16/17 22:25 Penicillins Allergy Verified 09/16/17 20:41 sulphur Allergy Uncoded 09/16/17 20:41 - Home Medications Home Medications: Ambulatory Orders Metoprolol Succinate 50 mg PO DAILY 09/17/17 Metoprolol Succinate 100 mg PO DAILY 09/17/17 Review of Systems - Review of Systems Constitutional: reports: Weakness Eyes: reports: No Symptoms HENT: reports: No Symptoms Neck: reports: No Symptoms Cardiovascular: reports: No Symptoms Respiratory: reports: No Symptoms Gastrointestinal: reports: Bloating, Diarrhea Genitourinary: reports: No Symptoms Breasts: reports: No Symptoms Reported Musculoskeletal: reports: No Symptoms Integumentary: reports: No Symptoms Neurological: reports: No Symptoms Endocrine: reports: No Symptoms Hematology/Lymphatic: reports: No Symptoms Psychiatric: reports: No Symptoms Physical Exam Vital Signs: Vital Signs Temperature 98.2 F 09/17/17 08:30 Pulse Rate 66 09/17/17 08:30 Respiratory Rate 18 09/17/17 08:30 Blood Pressure 97/53 09/17/17 08:30 O2 Sat by Pulse Oximetry (%) 97 09/16/17 20:41 Constitutional: Yes: No Distress Neck: Yes: Supple Cardiovascular: Yes: Regular Rate and Rhythm Respiratory: Yes: CTA Bilaterally Gastrointestinal: Yes: Soft, Hyperactive Bowel Sounds Renal/: Yes: WNL Musculoskeletal: Yes: WNL Extremities: Yes: WNL Integumentary: Yes: WNL Neurological: Yes: Alert, Oriented Psychiatric: Yes: Alert Labs: CBC, BMP 09/17/17 07:27 09/17/17 07:27 CMP Sodium 139 mmol/L (136-145) 09/17/17 07:27 Potassium 3.2 mmol/L (3.5-5.1) L 09/17/17 07:27 Chloride 97 mmol/L (98-107) L 09/17/17 07:27 Carbon Dioxide 30 mmol/L (21-32) 09/17/17 07:27 Anion Gap 12 (8-16) 09/17/17 07:27 BUN 16 mg/dL (7-18) 09/17/17 07:27 Creatinine 0.9 mg/dL (0.55-1.02) 09/17/17 07:27 Creat Clearance w eGFR > 60 (>60) 09/16/17 21:50 Random Glucose 96 mg/dL (74-106) 09/17/17 07:27 Lactic Acid 2.8 mmol/L (0.0-2.0) H* 09/17/17 07:27 Calcium 9.4 mg/dL (8.5-10.1) 09/17/17 07:27 Total Bilirubin 1.3 mg/dL (0.2-1.0) H 09/16/17 21:50 AST 12 U/L (15-37) L 09/16/17 21:50 ALT 18 U/L (12-78) 09/16/17 21:50 Alkaline Phosphatase 99 U/L (45-117) 09/16/17 21:50 Creatine Kinase 45 IU/L (26-192) 09/16/17 21:50 Troponin I < 0.02 ng/ml (0.00-0.05) 09/16/17 21:50 B-Natriuretic Peptide 508.64 pg/ml (5-450) H 09/17/17 07:27 Total Protein 8.0 g/dl (6.4-8.2) 09/16/17 21:50 Albumin 4.1 g/dl (3.4-5.0) 09/16/17 21:50 Blood/Urine cultures- results pending Imaging - Results X-ray: Report Reviewed (no acute infiltrates) Cat Scan: Report Reviewed (CT ABD: mid-distal SBO) Assessment/Plan 82 y.o. female with PMH of diverticulitis s/p resection, SBO s/o ex-lap/ELLY, s/ p cholecystectomy, HTN, HLD, Lt ankle fx s/p ORIF, and multiple antibiotic allergies presenting with intermittent episodes of vomiting/loose BMs that began 5 days ago with abdominal bloating and progressing to severe lower abd pain 2 days ago. Pt is afebrile, alert, currently feeling better. Reports loose stools. SBO Elevated lactic Acid Diarrhea/hypokalemia -- surgery following -- start empiric aztreonam/flagyl for now -- send stool cdt , although less likely -- on IV fluids, monitor electrolytes -- continue monitor vitals, repeat lactic acid Thank you -
[2017-09-17] MEDS ORDERED: PT OWN MED DRAWER 7, Y5N ONE ×2 (14:00→17:32)
--- NOTE | 2017-09-17 14:22 | EKG ---
Test Reason : Blood Pressure : / mmHG Vent. Rate : 071 BPM Atrial Rate : 071 BPM P-R Int : 156 ms QRS Dur : 092 ms QT Int : 430 ms P-R-T Axes : 004 -16 020 degrees QTc Int : 467 ms NORMAL SINUS RHYTHM SEPTAL INFARCT , AGE UNDETERMINED ABNORMAL ECG Confirmed by MD PHOEBE, EZEKIEL ([id number]) on 09/17/2017 2:21:49 PM Referred By: Confirmed By:EZEKIEL SANDHU MD
[2017-09-17] MEDS: AZTREONAM 1 GRAM SYRINGE 1 GM/10 ML DISP.SYRIN IVPUSH SCH ×2 (15:07→17:49)
[2017-09-17] MEDS ORDERED: POTASSIUM CHLORIDE ORAL LIQUID 20 MEQ/15 ML PO ONE ×2 (15:15→19:30)
[2017-09-17] MEDS: SODIUM CHLORIDE 1,000 ML IV SCH (17:46)
[2017-09-18] MEDS: AZTREONAM 1 GRAM SYRINGE 1 GM/10 ML DISP.SYRIN IVPUSH SCH ×3 (01:26→18:52)
[2017-09-18 07:30] LABS: BASO % 0.6 % (0-2.0); HEMATOCRIT 34.5 % (32.4-45.2); HEMOGLOBIN 11.7 GM/dL (10.7-15.3); LYMPH % 27.9 % (8-40); MCH 28.3 pg (25.7-33.7); MCHC 34.1 g/dl (32.0-36.0); MEAN CELL VOLUME 83.1 fl (80-96); MEAN PLT VOLUME 7.9 fl (7.5-11.1); MONO % 12.8 % (3.8-10.2); NEUT % 54.7 % (42.8-82.8); PLATELET COUNT 238 K/MM3 (134-434); RBC 4.15 M/mm3 (3.60-5.2); RDW 15.5 % (11.6-15.6); WHITE BLOOD COUNT 5.2 K/mm3 (4.0-10.0)
[2017-09-18 07:48] LABS: CHLORIDE 106 mmol/L (98-107); POTASSIUM 3.8 mmol/L (3.5-5.1); SODIUM 140 mmol/L (136-145)
[2017-09-18 07:57] LABS: ALK PHOS 70 U/L (45-117); ANION GAP 6 (8-16); BILIRUBIN,TOTAL 0.9 mg/dL (0.2-1.0); BLOOD UREA NITROGEN 13 mg/dL (7-18); CALCIUM 8.2 mg/dL (8.5-10.1); CO2 28 mmol/L (21-32); CREATININE 0.7 mg/dL (0.55-1.02); GLUCOSE,RANDOM 84 mg/dL (74-106); MAGNESIUM 1.8 mg/dL (1.8-2.4); SGOT/AST 9 U/L (15-37); SGPT/ALT 11 U/L (12-78); TOT PROT 6.3 g/dl (6.4-8.2)
--- NOTE | 2017-09-18 09:54 | PN ---
Progress Note (short form) - Note Progress Note: patient seen and examined;Abdomen soft; may start clear liquids today if x-ray does not show any severe abdominal distention. Passing gas but no diarrhea since yesterday. Actually asking for something to drink and clear liquids. No vomiting. No chest pain. On exam: Vital Signs Temp 97.6 F 09/18/17 17:38 Pulse 69 09/18/17 17:38 Resp 18 09/18/17 17:38 BP 138/67 09/18/17 17:38 Pulse Ox 95 09/18/17 09:00 Intake & Output 09/17/17 09/18/17 09/18/17 23:59 11:59 23:59 Intake Total 915 900 960 Balance 915 900 960 Intake: IV 365 800 600 D5-1/2Ns - 1,000 ml @ 42 353 mls/hr IV ASDIR ABDIRIZAK Rx#: [id number] Normal Saline - 1,000 ml 12 800 600 @ 83 mls/hr IV ASDIR ABDIRIZAK Rx#:[id number] IVPB 400 100 120 Oral 150 240 Other: Voiding Method Bedside Commode Bedside Commode Bedside Commode # Unmeasured Voids Void 1 1 1 Bowel Movement No No No alert Chest decreased breath sounds but no rales or wheezes. Heart regular. Abdomen soft with midline scar. No focal tenderness. Extremities no pedal edema. Abnormal Lab Results 09/18/17 09/18/17 06:15 06:15 Monocytes % 12.8 H Anion Gap 6 L Calcium 8.2 L AST 9 L ALT 11 L Total Protein 6.3 L Albumin 3.0 L Impression: Acute ileus Diarrhea, rule out C. difficile. History of abdominal lymphoma. hyperlipidemia Hypertension Recent accident with fracture ankle plan: Clear liquid low-salt diet. Followup labs Out of bed with PT followup surgical visit
[2017-09-18] MEDS ORDERED: PT OWN MED DRAWER 7, Y5N ONE (10:04)
--- NOTE | 2017-09-18 10:07 | PN ---
Progress Note (short form) - Note Progress Note: Attending Surgeon No c/o; no diarrhea today; passing flatus; no nausea or vomiting VSS AF abdo-soft; flat and non tender AXR's today pending IMP:improving PLAN: Continue present tx. pending todays abdominal x rays. Michael Roche MD FACS
[2017-09-18] MEDS: SODIUM CHLORIDE 1,000 ML IV SCH ×2 (10:15→18:52)
--- NOTE | 2017-09-18 13:14 | PN ---
Progress Note, Physician History of Present Illness: patient stable feels much better no dirrhoea passing gases - Current Medication List Current Medications: Active Medications Acetaminophen (Ofirmev Injection -) 1,000 mg IVPB Q6H PRN PRN Reason: PAIN LEVEL 6-10 Aztreonam (Azactam (Restricted To Id) -) 1 gm in 10 mls @ 120 mls/hr IVPUSH Q8H -IV ABDIRIZAK PRN Reason: Protocol Last Admin: 09/18/17 10:13 Dose: 120 mls/hr Metronidazole (Flagyl 500mg Premixed Ivpb -) 500 mg in 100 mls @ 100 mls/hr IVPB Q8H-IV ABDIRIZAK Last Admin: 09/18/17 10:13 Dose: 100 mls/hr Sodium Chloride (Normal Saline -) 1,000 mls @ 83 mls/hr IV ASDIR ABDIRIZAK Last Admin: 09/18/17 10:15 Dose: 83 mls/hr Ondansetron HCl (Zofran Injection) 4 mg IVPUSH Q6H PRN PRN Reason: NAUSEA AND/OR VOMITING - Objective Vital Signs: Vital Signs Temperature 98.1 F 09/18/17 06:00 Pulse Rate 71 09/18/17 06:00 Respiratory Rate 18 09/18/17 06:00 Blood Pressure 126/64 09/18/17 06:00 O2 Sat by Pulse Oximetry (%) 91 L 09/17/17 21:00 Constitutional: Yes: No Distress, Calm Cardiovascular: Yes: Regular Rate and Rhythm Respiratory: Yes: Regular, CTA Bilaterally Gastrointestinal: Yes: Normal Bowel Sounds, Soft Musculoskeletal: Yes: WNL Extremities: Yes: WNL Neurological: Yes: Alert, Oriented Psychiatric: Yes: Alert, Oriented Labs: CBC, BMP 09/18/17 06:15 09/18/17 06:15 INR, PTT INR 0.97 (0.82-1.09) 09/16/17 21:50 - ....Imaging X-ray: Image Reviewed (awaiting report) Assessment/Plan 82 y.o. female with PMH of diverticulitis s/p resection, SBO s/o ex-lap/ELLY, s/ p cholecystectomy, HTN, HLD, Lt ankle fx s/p ORIF, and multiple antibiotic allergies presenting with intermittent episodes of vomiting/loose BMs that began 5 days ago with abdominal bloating and progressing to severe lower abd pain 2 days ago. Pt is afebrile, alert, currently feeling better. Reports loose stools. Problem List - Problems (1) SBO (small bowel obstruction) Code(s): K56.609 - UNSP INTESTNL OBST, UNSP TO PARTIAL VERSUS COMPLETE OBST (2) lactic acidosis (3) HTN (hypertension) Code(s): I10 - ESSENTIAL (PRIMARY) HYPERTENSION (4) HLD (hyperlipidemia) Code(s): E78.5 - HYPERLIPIDEMIA, UNSPECIFIED (5) GERD (gastroesophageal reflux disease) Code(s): K21.9 - GASTRO-ESOPHAGEAL REFLUX DISEASE WITHOUT ESOPHAGITIS 6 dirrhoea plan continue current mgmt once patient starts taking orally will deescalte abx
[2017-09-19] MEDS: AZTREONAM 1 GRAM SYRINGE 1 GM/10 ML DISP.SYRIN IVPUSH SCH ×3 (02:14→19:33)
[2017-09-19 07:20] LABS: BASO % 0.6 % (0-2.0); EOS % 3.5 % (0-4.5); HEMATOCRIT 34.5 % (32.4-45.2); HEMOGLOBIN 12.1 GM/dL (10.7-15.3); LYMPH % 19.2 % (8-40); MCH 28.5 pg (25.7-33.7); MEAN CELL VOLUME 81.4 fl (80-96); MEAN PLT VOLUME 7.7 fl (7.5-11.1); MONO % 11.8 % (3.8-10.2); NEUT % 64.9 % (42.8-82.8); PLATELET COUNT 246 K/MM3 (134-434); RBC 4.24 M/mm3 (3.60-5.2); RDW 15.2 % (11.6-15.6)
[2017-09-19 07:42] LABS: ANION GAP 8 (8-16); BLOOD UREA NITROGEN 8 mg/dL (7-18); CALCIUM 7.9 mg/dL (8.5-10.1); CHLORIDE 103 mmol/L (98-107); CO2 26 mmol/L (21-32); CREATININE 0.5 mg/dL (0.55-1.02); GLUCOSE,RANDOM 95 mg/dL (74-106); POTASSIUM 3.4 mmol/L (3.5-5.1); SODIUM 137 mmol/L (136-145)
--- NOTE | 2017-09-19 12:14 | PN ---
Progress Note, Physician History of Present Illness: c/o dirrhoea otherwise patient stable - Current Medication List Current Medications: Active Medications Acetaminophen (Ofirmev Injection -) 1,000 mg IVPB Q6H PRN PRN Reason: PAIN LEVEL 6-10 Aztreonam (Azactam (Restricted To Id) -) 1 gm in 10 mls @ 120 mls/hr IVPUSH Q8H -IV ABDIRIZAK PRN Reason: Protocol Last Admin: 09/19/17 09:50 Dose: 120 mls/hr Metronidazole (Flagyl 500mg Premixed Ivpb -) 500 mg in 100 mls @ 100 mls/hr IVPB Q8H-IV ABDIRIZAK Last Admin: 09/19/17 09:50 Dose: 100 mls/hr Sodium Chloride (Normal Saline -) 1,000 mls @ 83 mls/hr IV ASDIR ABDIRIZAK Last Admin: 09/18/17 18:52 Dose: Not Given Ondansetron HCl (Zofran Injection) 4 mg IVPUSH Q6H PRN PRN Reason: NAUSEA AND/OR VOMITING - Objective Vital Signs: Vital Signs Temperature 98.8 F 09/19/17 06:27 Pulse Rate 84 09/19/17 06:27 Respiratory Rate 20 09/19/17 06:27 Blood Pressure 134/69 09/19/17 06:27 O2 Sat by Pulse Oximetry (%) 95 09/18/17 09:00 Constitutional: Yes: No Distress, Calm Cardiovascular: Yes: Regular Rate and Rhythm Respiratory: Yes: Regular, CTA Bilaterally Gastrointestinal: Yes: Normal Bowel Sounds, Soft Musculoskeletal: Yes: WNL Extremities: Yes: WNL Neurological: Yes: Alert, Oriented Psychiatric: Yes: Alert, Oriented Labs: CBC, BMP 09/19/17 06:26 09/19/17 06:26 INR, PTT INR 0.97 (0.82-1.09) 09/16/17 21:50 Assessment/Plan 82 y.o. female with PMH of diverticulitis s/p resection, SBO s/o ex-lap/ELLY, s/ p cholecystectomy, HTN, HLD, Lt ankle fx s/p ORIF, and multiple antibiotic allergies presenting with intermittent episodes of vomiting/loose BMs that began 5 days ago with abdominal bloating and progressing to severe lower abd pain 2 days ago. Pt is afebrile, alert, currently feeling better. Reports loose stools. Problem List - Problems (1) SBO (small bowel obstruction) Code(s): K56.609 - UNSP INTESTNL OBST, UNSP TO PARTIAL VERSUS COMPLETE OBST (2) lactic acidosis (3) HTN (hypertension) Code(s): I10 - ESSENTIAL (PRIMARY) HYPERTENSION (4) HLD (hyperlipidemia) Code(s): E78.5 - HYPERLIPIDEMIA, UNSPECIFIED (5) GERD (gastroesophageal reflux disease) Code(s): K21.9 - GASTRO-ESOPHAGEAL REFLUX DISEASE WITHOUT ESOPHAGITIS 6 dirrhoea plan continue current mgmt once patient starts eating will stop abx
--- NOTE | 2017-09-19 12:40 | PN ---
Progress Note (short form) - Note Progress Note: Pt states that she is having non-bloody diarrhea, no abd pain. As per nursing staff no diarrhea today, last episode yest evening. Vital Signs Period Temp Pulse Resp BP Sys/Howard Pulse Ox Last 24 Hr 97.6 F-98.8 F 69-84 18-20 134-155/67-76 GEN: appears comfortable ABD: soft, non-distended, non-tender CBC, BMP 09/19/17 06:26 09/19/17 06:26 3/5-AXR- no evidence of SBO. Air in colon rectum A/P: 82 yo female with resolving SBO Continue clears, if diarrhea continues to be minimal than can advance as tolerated D/w Dr. Roche
--- NOTE | 2017-09-19 16:21 | PN ---
Progress Note (short form) - Note Progress Note: the patient had a recurrence of diarrhea today with multiple loose bowel movements. No obvious bleeding. Some mild abdominal bloating which was not present yesterday morning. Preliminary C. difficile toxin negative. However, the patient is on 2 antibiotics including Flagyl. We may have to consider discontinuing the antibiotics and observing. Because of her past history of GI lymphoma. I also consulted GI physician for an opinion. Although there is no documented small bowel obstruction on a recent x-ray of her abdomen or CAT scan. This is obviously a worry but the fact that she is having multiple Bowel movements is significant. She also has hypertension and is on several antihypertensives at home but has not needed any of the medications here because of bed rest and diarrhea. Mild hypokalemia today will replace. On exam: Vital Signs Temp 98.6 F 09/19/17 15:44 Pulse 72 09/19/17 15:44 Resp 16 09/19/17 15:44 BP 128/78 09/19/17 15:44 Pulse Ox 95 09/18/17 09:00 Intake & Output 09/18/17 09/19/17 09/19/17 23:59 11:59 23:59 Intake Total 960 947 Balance 960 947 Intake: IV 600 747 Normal Saline - 1,000 ml 600 747 @ 83 mls/hr IV ASDIR ABDIRIZAK Rx#:[id number] IVPB 120 200 Oral 240 Other: Voiding Method Diaper Bedside Commode # Unmeasured Voids Void 1 2 Bowel Movement Yes # Bowel Movements 5 alert Anicteric Chest clear. Heart regular Abdomen distended today but only mild tenderness in the epigastric and left lower quadrant with increased bowel sounds. Extremities no pedal edema. Abnormal Lab Results 09/19/17 09/19/17 06:26 06:26 Monocytes % 11.8 H Potassium 3.4 L Creatinine 0.5 L Calcium 7.9 L impression: Diarrhea syndrome of unknown cause. History of small bowel lymphoma. Hypertension. Recent fall with ankle fracture. Hyperlipidemia. Mild hypokalemia. 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 We'll have to consider stopping current antibiotics
--- NOTE | 2017-09-19 16:54 | CON.GI ---
Consult Consult Specialty:: GI Referred by:: Dr. Cliff Sterling Reason for Consultation:: Diarrhea - History of Present Illness Chief Complaint: Diarrhea History of Present Illness: 82F admitted through [facility] initially on 09/16/17. She had experienced nausea and vomiting earlier last week on monday into monday. It let up but recurred monday night along with loose bowel movements. Prior to this, she denied any chronic GI symptoms. Work-up in the ER included labs that revealed elevated WBC , lactic acid and CT scan of the abd/pelvis revealed a 4mm pulmonary nodule, 4mm granuloma the the left lung base, mid to distal bowel obstruction with an un clear transition point, surgical sutures around a distal small bowel loop, diverticulosis and sutures at the distal sigmoid. No diarrhea was reported in 09/17, loose BM's were reported last and 2 BM's were reported today. Since admission she was seen by ID (statred on Abx), seen by surgery given CT scan findings (questioned if this was resolving SBO. AXR yesterday failed to reveal evidence of SBO. I am asked to evaluate loose BM's. Ms. Macias's daughter-in- law was present bedside and they both gave me history. Ms. Macias has a complicated surgical history. 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 cholecystectomy. She states that she was followed at [facility] for 5 years due to this but never required chemotherapy. She is also followed by expander machine operator Dr. Heron Cosme in [place]. she explained that he performed her colonoscopies (the last being 2- 3 years ago. was OK per patient) and performing ? capsule endoscopy (for ? obscure bleeding previously). she also has surgical sutures along her sigmoid colon. She was unable to give me clear history regarding the etiology of this surgery. She denies rectal bleeding, melena, night sweats, unintentional weight loss. She was recently admitted to [facility] 06/02 s/p fall with LLE surgeries x 2. She was also noted to have an intracranial bleed at that time as well, sent to [facility] for rehab, was noted to have A. Fib (? given injections / no A/C after that) per her [id number]-spp. - History Source History Provided By: Patient, Family Member, Medical Record Limitations to Obtaining History: Poor Historian (Unclear historian at time) - Past Medical History Cardio/Vascular: Yes: HTN, Hyperlipdemia Gastrointestinal: Yes: Diverticulosis, GERD, Other (Bowel Obstruction) Heme/Onc: Yes: Other (? history of small bowel lymphoma) ENT: Yes: Other (Lt tympanic rupture s/p repair) - Past Surgical History Past Surgical History: Yes: Cholecystectomy, Joint Replacement (bilateral hip) Additional Surgical History: Small bowel resection for ? small bowel lymphoma. Sigmoid resection for unclear reasons. 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year[place] 1953 History of Recent Travel: No Home Medications - Allergies Allergies/Adverse Reactions: Allergies Allergy/AdvReac Type Severity Reaction Status Date / Time azithromycin Allergy Verified 09/16/17 20:41 levofloxacin [From Levaquin] Allergy Verified 09/16/17 20:41 lisinopril [From Zestril] Allergy Verified 09/16/17 20:41 meperidine HCl [From Demerol] Allergy Verified 09/16/17 20:41 morphine Allergy Verified 09/16/17 22:25 Penicillins Allergy Verified 09/16/17 20:41 sulphur Allergy Uncoded 09/16/17 20:41 - Home Medications Home Medications: Ambulatory Orders Metoprolol Succinate 50 mg PO DAILY 09/17/17 Metoprolol Succinate 100 mg PO DAILY 09/17/17 Family Disease History - Family Disease History Family Disease History: Heart Disease: Mother (: 37: reaction from bee sting ), Other: Father (: 56: CVA), Mother, Brother (1, healthy), Sister (2, healthy), Son (3, healthy) Other Family History: No family history of colorectal cancer or other GI malignancy Review of Systems - Review of Systems Constitutional: denies: Chills, Unintentional Wgt. Loss Cardiovascular: denies: Chest Pain Respiratory: denies: Cough Gastrointestinal: reports: Abdominal Pain (resolved), Bloating (resolved), Diarrhea, Nausea (resolved), Vomiting (resolved). denies: Constipation, Melena , Rectal Bleeding, Vomiting Blood Physical Exam-GI Vital Signs: Vital Signs Temperature 98.6 F 09/19/17 15:44 Pulse Rate 72 09/19/17 15:44 Respiratory Rate 16 09/19/17 15:44 Blood Pressure 128/78 09/19/17 15:44 O2 Sat by Pulse Oximetry (%) 95 09/18/17 09:00 Constitutional: No: Calm Eyes: No: Sclera Icterus Cardiovascular: Yes: Regular Rate and Rhythm Respiratory: Yes: CTA Bilaterally Gastrointestinal Inspection: Yes: Scars (+ midline vertical surgical scar). No : Distention ...Auscultate: Yes: Normoactive Bowel Sounds ...Palpate: No: Tenderness ...Percussion: No: Tympanitic ...Rectal Exam: Yes: Other (No external lesions, no masses, loose green/yellow stool guaiac negative) Edema: No (No LE edema) Neurological: Yes: Alert Labs: CBC, BMP 09/19/17 06:26 09/19/17 06:26 INR, PTT INR 0.97 (0.82-1.09) 09/16/17 21:50 Hepatic Panel Total Bilirubin 0.9 mg/dL (0.2-1.0) D 09/18/17 06:15 AST 9 U/L (15-37) L 09/18/17 06:15 ALT 11 U/L (12-78) L 09/18/17 06:15 Alkaline Phosphatase 70 U/L (45-117) 09/18/17 06:15 Albumin 3.0 g/dl (3.4-5.0) L 09/18/17 06:15 Microbiology 09/18/17 23:36 Stool Clostridium difficile Antigen (SHITAL) - neg 09/18/17 23:36 Stool Clostridium difficile Toxin Assay - neg Imaging - Results X-ray: Report Reviewed Cat Scan: Report Reviewed, Image Reviewed Problem List - Problems (1) Diarrhea Assessment/Plan: Imp: Loose bowel movements now without copious watery BMs Given CT scan findings and prior history of bowel surgeries, ? bowel malignancy and bowel obstructions, ? if her loose bowel movements relflect a post obstructive diarrhea from partial SBO Question if she has an ileus secondary to viral gastroenteritis. This could explain her elevated monocytes I also question if her current antibiotic regimen is contributing to the persistently loose bowel movements C. Diff negative Plan: D/C antibiotics when feasible from ID standpoint. I discontinued flagyl. CT enterography can be obtained to further evaluate small bowel. Ordered for Stool for culture / O&P if diarrhea persists. If persistent monocyte elevation consider heme eval. I explained that when her acute issues are resolved it would be best if she follow-up with Dr. Heron Cosme her gastroengterologist in [place] given what sounds like extensive work-up with him in the past and her extensive medical history. Full liquids Probiotic Code(s): R19.7 - DIARRHEA, UNSPECIFIED
[2017-09-19] MEDS ORDERED: PT OWN MED DRAWER 7, Y5N ONE (17:47)
[2017-09-19] MEDS ORDERED: ACETAMINOPHEN 500 MG TABLET (FP) PO ONE (18:00)
[2017-09-19] MEDS: SODIUM CHLORIDE 1,000 ML IV SCH ×2 (19:33→22:20)
[2017-09-19] MEDS: POTASSIUM CHLORIDE TABS 10 MEQ TABLET.ER (FP) PO SCH (22:21)
[2017-09-20] MEDS: AZTREONAM 1 GRAM SYRINGE 1 GM/10 ML DISP.SYRIN IVPUSH SCH ×2 (01:22→09:03)
--- NOTE | 2017-09-20 07:41 | PN ---
Progress Note (short form) - Note Progress Note: Pt states that her diarrhea has improved. Tolerated her diet. No abd pain. Small amount of liquid stool noted. Vital Signs Period Temp Pulse Resp BP Sys/Howard Pulse Ox Last 24 Hr 98.4 F-99.1 F 72-96 16-20 128-140/62-78 GEN; Appears comfortable ABD: soft, non-distended, non-tender CBC, BMP 09/19/17 06:26 09/19/17 06:26 Microbiology 09/18/17 23:36 Stool Clostridium difficile Antigen (SHITAL) - Final 09/18/17 23:36 Stool Clostridium difficile Toxin Assay - Final A/P: 82 yo female with improved diarrhea Stool cultures pending, c diff negative advance diet as tolerated D/w Dr. Roche
[2017-09-20 08:36] LABS: CHLORIDE 104 mmol/L (98-107); POTASSIUM 3.4 mmol/L (3.5-5.1); SODIUM 136 mmol/L (136-145)
[2017-09-20 08:43] LABS: ANION GAP 11 (8-16); BLOOD UREA NITROGEN 5 mg/dL (7-18); CO2 21 mmol/L (21-32); CREATININE 0.5 mg/dL (0.55-1.02); GLUCOSE,RANDOM 95 mg/dL (74-106)
[2017-09-20] MEDS ORDERED: PT OWN MED DRAWER 7, Y5N ONE (08:58)
--- NOTE | 2017-09-20 09:01 | PN ---
Progress Note (short form) - Note Progress Note: Patient seen and examined. still having some loose bowel movements. On a full liquid diet. Less abdominal pain. Anxious to begin physical therapy. Await stool culture. On exam: Alert and aware. Vital signs stable. Blood pressure is still low normal. Chest clear. Heart regular Abdomen slightly distended with increased bowel sounds and mild left lower quadrant tenderness. Extremities no pedal edema. Lab: Reviewed impression Acute diarrhea syndrome. Rule out urinary tract infection. Recent accident causing left ankle fracture with surgery. Hypertension. Hyperlipidemia. Abdominal lymphoma. History of diverticulitis with surgery. . Plan: Followup lab Followup infectious disease physician Followup GI Dr. Physical therapy. Progress with diet
[2017-09-20] MEDS: LACTOBACILLUS ACIDOPHILUS 1 EACH TAB (FP) PO SCH (09:03)
[2017-09-20] MEDS: POTASSIUM CHLORIDE TABS 10 MEQ TABLET.ER (FP) PO SCH ×3 (09:03→21:02)
[2017-09-20] MEDS: ENOXAPARIN NA (PORCINE) 40 MG/0.4 ML DISP.SYRIN SQ SCH (10:44)
--- NOTE | 2017-09-20 13:44 | PN ---
GI Progress Note Subjective: Denies abdominal pain No vomiting No diarrhea today - Objective Vital Signs: Vital Signs Temperature 98.4 F 09/20/17 10:00 Pulse Rate 90 09/20/17 10:00 Respiratory Rate 20 09/20/17 10:00 Blood Pressure 148/75 09/20/17 10:00 O2 Sat by Pulse Oximetry (%) 95 09/18/17 09:00 Constitutional: Calm Eyes: No: Sclera Icterus Respiratory: Yes: CTA Bilaterally Gastrointestinal Inspection: No: Distention ...Auscultate: Yes: Normoactive Bowel Sounds ...Palpate: No: Soft, Tenderness ...Percussion: No: Tympanitic Edema: No (No LE edema) Neurological: Yes: Alert Labs: CBC, BMP 09/19/17 06:26 09/20/17 06:55 INR, PTT INR 0.97 (0.82-1.09) 09/16/17 21:50 Problem List - Problems (1) Diarrhea Assessment/Plan: Diarrhea seems to be resolving Stool culture pending Advance to low fiber diet. 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 Heron Cosme Code(s): R19.7 - DIARRHEA, UNSPECIFIED
--- NOTE | 2017-09-20 15:27 | PN ---
Progress Note, Physician History of Present Illness: no vomiting no dirrhoea feels a lot better - Current Medication List Current Medications: Active Medications Enoxaparin Sodium (Lovenox -) 40 mg SQ DAILY [facility] Last Admin: 09/20/17 10:44 Dose: 40 mg Aztreonam (Azactam (Restricted To Id) -) 1 gm in 10 mls @ 120 mls/hr IVPUSH Q8H -IV ABDIRIZAK PRN Reason: Protocol Last Admin: 09/20/17 09:03 Dose: 120 mls/hr Sodium Chloride (Normal Saline -) 1,000 mls @ 83 mls/hr IV ASDIR [facility] Last Admin: 09/19/17 22:20 Dose: 83 mls/hr Lactobacillus Acidophilus (Bacid -) 2 tab PO DAILY [facility] Last Admin: 09/20/17 09:03 Dose: 2 tab Potassium Chloride (K-Dur -) 10 meq PO TID [facility] Last Admin: 09/20/17 13:05 Dose: 10 meq - Objective Vital Signs: Vital Signs Temperature 99.3 F 09/20/17 14:49 Pulse Rate 93 H 09/20/17 14:49 Respiratory Rate 22 09/20/17 14:49 Blood Pressure 143/78 09/20/17 14:49 O2 Sat by Pulse Oximetry (%) 95 09/18/17 09:00 Constitutional: Yes: No Distress, Calm Cardiovascular: Yes: Regular Rate and Rhythm Respiratory: Yes: Regular, CTA Bilaterally Gastrointestinal: Yes: Normal Bowel Sounds, Soft Musculoskeletal: Yes: WNL Extremities: Yes: WNL Neurological: Yes: Alert, Oriented Psychiatric: Yes: Alert, Oriented Labs: CBC, BMP 09/19/17 06:26 09/20/17 06:55 INR, PTT INR 0.97 (0.82-1.09) 09/16/17 21:50 Assessment/Plan 82 y.o. female with PMH of diverticulitis s/p resection, SBO s/o ex-lap/ELLY, s/ p cholecystectomy, HTN, HLD, Lt ankle fx s/p ORIF, and multiple antibiotic allergies presenting with intermittent episodes of vomiting/loose BMs that began 5 days ago with abdominal bloating and progressing to severe lower abd pain 2 days ago. Pt is afebrile, alert, currently feeling better. Reports loose stools. Problem List - Problems (1) SBO (small bowel obstruction) Code(s): K56.609 - UNSP INTESTNL OBST, UNSP TO PARTIAL VERSUS COMPLETE OBST (2) lactic acidosis (3) HTN (hypertension) Code(s): I10 - ESSENTIAL (PRIMARY) HYPERTENSION (4) HLD (hyperlipidemia) Code(s): E78.5 - HYPERLIPIDEMIA, UNSPECIFIED (5) GERD (gastroesophageal reflux disease) Code(s): K21.9 - GASTRO-ESOPHAGEAL REFLUX DISEASE WITHOUT ESOPHAGITIS 6 dirrhoea plan will stop iv abx monitor off of abx rest ct current mgmt improving
[2017-09-20] MEDS: SODIUM CHLORIDE 1,000 ML IV SCH (17:26)
[2017-09-21] MEDS: SODIUM CHLORIDE 1,000 ML IV SCH (00:19)
[2017-09-21] MEDS ORDERED: ACETAMINOPHEN 500 MG TABLET (FP) PO ONE (00:31)
[2017-09-21] MEDS: POTASSIUM CHLORIDE TABS 10 MEQ TABLET.ER (FP) PO SCH ×3 (05:43→21:50)
[2017-09-21 07:35] LABS: ANION GAP 10 (8-16); BLOOD UREA NITROGEN 6 mg/dL (7-18); CALCIUM 8.3 mg/dL (8.5-10.1); CHLORIDE 107 mmol/L (98-107); CO2 24 mmol/L (21-32); CREATININE 0.5 mg/dL (0.55-1.02); GLUCOSE,RANDOM 102 mg/dL (74-106); POTASSIUM 3.7 mmol/L (3.5-5.1); SODIUM 141 mmol/L (136-145)
[2017-09-21] MEDS ORDERED: ACETAMINOPHEN 325 MG TABLET (FP) PO PRN (08:14)
--- NOTE | 2017-09-21 08:53 | PN ---
Progress Note (short form) - Note Progress Note: Patient seen and examined;overrule feeling better. Had solid food last night but ate lightly and sparingly ASCUS and not upset her stomach Last bowel movement. She had appeared normal. Preliminary stool cultures are negative so far. Urine cultures showing either a strep or enterococcus pending sensitivity. Was seen by infectious disease this morning but not mentioned. Physical therapy today. Patient is on several blood pressure medications at home including nifedipine, 60 mg ER, Toprol ER50 mg a.m. and 100 mg p.m.,generic Avalide 30-25 daily and Cardura 2 mg each evening. She is also on Lipitor 20 mg at home. As her blood pressure is been trending upward, although low normal for the first days of admission I told her that we would add gently 2 of the blood pressure pills that she is on but at a lower dose: Nifedipine 30 mg daily and metoprolol ER 50 mg daily. She is agreeable. We will observe her pressure during the day and decide what we should do at home. She can get an aide to help her at home but I am waiting to see her response to physical therapy. On exam: Vital Signs Temp 98.9 F 09/21/17 10:00 Pulse 87 09/21/17 10:00 Resp 16 09/21/17 10:00 BP 148/74 09/21/17 10:00 Pulse Ox 95 09/18/17 09:00 Intake & Output 09/20/17 09/21/17 09/21/17 23:59 11:59 23:59 Intake Total 1511 996 Balance 1511 996 Intake: IV 1221 996 Normal Saline - 1,000 ml 1221 996 @ 83 mls/hr IV ASDIR ABDIRIZAK Rx#:[id number] IVPB 50 Oral 240 Other: Voiding Method Bedside Commode Bedside Commode # Unmeasured Voids Void 2 Bowel Movement Yes # Bowel Movements 1 alert Chest decreased breath sounds. Heart regular. Abdomen slightly increased bowel sounds but nontender. Extremities no edema. Abnormal Lab Results 09/21/17 06:00 BUN 6 L Creatinine 0.5 L Calcium 8.3 L impression: Acute diarrhea syndrome. Ileus acute resolving. Hypertension. Recent fall with surgery left ankle. History of abdominal lymphoma. History of diverticulitis with surgery. Hip replacement. Hyperlipidemia. Plan: Physical therapy and should progress Overweight, responsive infectious disease physician to urine culture Await final report from stool culture. Start BP meds as discussed above
[2017-09-21] MEDS: ENOXAPARIN NA (PORCINE) 40 MG/0.4 ML DISP.SYRIN SQ SCH (09:28)
[2017-09-21] MEDS: LACTOBACILLUS ACIDOPHILUS 1 EACH TAB (FP) PO SCH (09:28)
[2017-09-21] MEDS: NIFEdipine E.R. 30 MG TABLET (FP) PO SCH (09:28)
--- NOTE | 2017-09-21 13:34 | PN ---
Progress Note, Physician History of Present Illness: patient stable no new issues no dirrhoea feels a lot better - Current Medication List Current Medications: Active Medications Acetaminophen (Tylenol -) 650 mg PO Q4H PRN PRN Reason: PAIN LEVEL 4 - 6 Enoxaparin Sodium (Lovenox -) 40 mg SQ DAILY [facility] Last Admin: 09/21/17 09:28 Dose: 40 mg Lactobacillus Acidophilus (Bacid -) 2 tab PO DAILY [facility] Last Admin: 09/21/17 09:28 Dose: 2 tab Metoprolol Succinate (Toprol Xl -) 50 mg PO DAILY [facility] Last Admin: 09/21/17 09:28 Dose: 50 mg Nifedipine (Procardia Xl -) 30 mg PO DAILY [facility] Last Admin: 09/21/17 09:28 Dose: 30 mg Potassium Chloride (K-Dur -) 10 meq PO TID [facility] Last Admin: 09/21/17 05:43 Dose: 10 meq - Objective Vital Signs: Vital Signs Temperature 98.7 F 09/21/17 06:00 Pulse Rate 87 09/21/17 06:00 Respiratory Rate 20 09/21/17 06:00 Blood Pressure 129/75 09/21/17 06:00 O2 Sat by Pulse Oximetry (%) 95 09/18/17 09:00 Constitutional: Yes: No Distress, Calm Cardiovascular: Yes: Regular Rate and Rhythm Respiratory: Yes: Regular, CTA Bilaterally Gastrointestinal: Yes: Normal Bowel Sounds, Soft Musculoskeletal: Yes: WNL Extremities: Yes: WNL Neurological: Yes: Alert, Oriented Psychiatric: Yes: Alert, Oriented Labs: CBC, BMP 09/19/17 06:26 09/21/17 06:00 INR, PTT INR 0.97 (0.82-1.09) 09/16/17 21:50 Assessment/Plan 82 y.o. female with PMH of diverticulitis s/p resection, SBO s/o ex-lap/ELLY, s/ p cholecystectomy, HTN, HLD, Lt ankle fx s/p ORIF, and multiple antibiotic allergies presenting with intermittent episodes of vomiting/loose BMs that began 5 days ago with abdominal bloating and progressing to severe lower abd pain 2 days ago. Pt is afebrile, alert, currently feeling better. Reports loose stools. Problem List - Problems (1) SBO (small bowel obstruction) Code(s): K56.609 - UNSP INTESTNL OBST, UNSP TO PARTIAL VERSUS COMPLETE OBST (2) lactic acidosis (3) HTN (hypertension) Code(s): I10 - ESSENTIAL (PRIMARY) HYPERTENSION (4) HLD (hyperlipidemia) Code(s): E78.5 - HYPERLIPIDEMIA, UNSPECIFIED (5) GERD (gastroesophageal reflux disease) Code(s): K21.9 - GASTRO-ESOPHAGEAL REFLUX DISEASE WITHOUT ESOPHAGITIS 6 dirrhoea plan stable off of abx continue to monitor no dirrhoea patient doing well
[2017-09-22] MEDS: POTASSIUM CHLORIDE TABS 10 MEQ TABLET.ER (FP) PO SCH (06:08)
[2017-09-22 08:41] LABS: ANION GAP 10 (8-16); BLOOD UREA NITROGEN 8 mg/dL (7-18); CALCIUM 8.3 mg/dL (8.5-10.1); CHLORIDE 104 mmol/L (98-107); CO2 23 mmol/L (21-32); CREATININE 0.4 mg/dL (0.55-1.02); GLUCOSE,RANDOM 93 mg/dL (74-106); POTASSIUM 3.8 mmol/L (3.5-5.1); SODIUM 137 mmol/L (136-145)
[2017-09-22] MEDS: ENOXAPARIN NA (PORCINE) 40 MG/0.4 ML DISP.SYRIN SQ SCH (09:23)
[2017-09-22] MEDS: NIFEdipine E.R. 30 MG TABLET (FP) PO SCH (09:23)
[2017-09-22] MEDS: LACTOBACILLUS ACIDOPHILUS 1 EACH TAB (FP) PO SCH (09:24)
[2017-09-22 10:10] VITALS: BP 124/71; PULSE 82; TEMP 98.2
--- NOTE | 2017-09-22 10:59 | PN ---
Progress Note, Physician History of Present Illness: doing well no complaints gi symptoms ahve resolved no dirrhoea or abd pain patient feels she is back at her baseline - Current Medication List Current Medications: Active Medications Acetaminophen (Tylenol -) 650 mg PO Q4H PRN PRN Reason: PAIN LEVEL 4 - 6 Last Admin: 09/21/17 21:49 Dose: 650 mg Lactobacillus Acidophilus (Bacid -) 2 tab PO DAILY [facility] Last Admin: 09/22/17 09:24 Dose: 2 tab Metoprolol Succinate (Toprol Xl -) 50 mg PO DAILY [facility] Last Admin: 09/22/17 09:23 Dose: 50 mg Nifedipine (Procardia Xl -) 60 mg PO DAILY [facility] Potassium Chloride (K-Dur -) 10 meq PO TID [facility] Last Admin: 09/22/17 06:08 Dose: 10 meq - Objective Vital Signs: Vital Signs Temperature 98.2 F 09/22/17 10:08 Pulse Rate 82 09/22/17 10:08 Respiratory Rate 20 09/22/17 10:08 Blood Pressure 124/71 09/22/17 10:08 O2 Sat by Pulse Oximetry (%) 95 09/18/17 09:00 Constitutional: Yes: No Distress, Calm Cardiovascular: Yes: Regular Rate and Rhythm Respiratory: Yes: Regular, CTA Bilaterally Gastrointestinal: Yes: Normal Bowel Sounds, Soft Musculoskeletal: Yes: WNL Extremities: Yes: WNL Neurological: Yes: Alert, Oriented Psychiatric: Yes: Alert, Oriented Labs: CBC, BMP 09/19/17 06:26 09/22/17 07:00 INR, PTT INR 0.97 (0.82-1.09) 09/16/17 21:50 Assessment/Plan 82 y.o. female with PMH of diverticulitis s/p resection, SBO s/o ex-lap/ELLY, s/ p cholecystectomy, HTN, HLD, Lt ankle fx s/p ORIF, and multiple antibiotic allergies presenting with intermittent episodes of vomiting/loose BMs that began 5 days ago with abdominal bloating and progressing to severe lower abd pain 2 days ago. Pt is afebrile, alert, currently feeling better. Reports loose stools. Problem List - Problems (1) SBO (small bowel obstruction) Code(s): K56.609 - UNSP INTESTNL OBST, UNSP TO PARTIAL VERSUS COMPLETE OBST (2) lactic acidosis (3) HTN (hypertension) Code(s): I10 - ESSENTIAL (PRIMARY) HYPERTENSION (4) HLD (hyperlipidemia) Code(s): E78.5 - HYPERLIPIDEMIA, UNSPECIFIED (5) GERD (gastroesophageal reflux disease) Code(s): K21.9 - GASTRO-ESOPHAGEAL REFLUX DISEASE WITHOUT ESOPHAGITIS 6 dirrhoea plan stable off of abx no issues no dirrhoea patient doing well discussed with he patient
[2017-09-22] MEDS: NIFEdipine E.R 60 MG TABLET (UD) PO SCH ×2 (11:14→11:26)
--- NOTE | 2017-09-22 19:22 | DS ---
Physical Examination Vital Signs: Vital Signs Temperature 98.2 F 09/22/17 10:08 Pulse Rate 82 09/22/17 10:08 Respiratory Rate 20 09/22/17 10:08 Blood Pressure 124/71 09/22/17 10:08 O2 Sat by Pulse Oximetry (%) 95 09/22/17 09:00 Constitutional: Yes: Calm Eyes: Yes: Conjunctiva Clear Cardiovascular: Yes: Regular Rate and Rhythm Respiratory: Yes: Regular Gastrointestinal: Yes: Soft Renal/: No: Siddiqui Present Edema: No Neurological: Yes: Alert, Oriented Labs: CBC, BMP 09/19/17 06:26 09/22/17 07:00 Discharge Summary Reason For Visit: HYPOXEMIA,PNEUMONIA Acute diarrhea syndrome. Acute urinary tract infection. falls. Atelectasis of lungs Hypertension Hyperlipidemia Hypokalemia or acute Procedures: Principal: blood cultures, stool cultures CAT scan of chest Other Procedures: IV antibiotics. Cultures for C. difficile and enteric pathogens. Urine culture. Daily lab Hospital Course: slow to improve because of recurring diarrhea or in GI symptoms. Had to be seen by GI physician Small colony count UTI noted but seen by infectious disease Dr. including day of discharge, and no antibiotics are recommended Condition: Stable - Instructions Diet, Activity, Other Instructions: regular diet as tolerated; no added salt. Sometimes milk products can worsen diarrhea. Visit office within 1 week if able so your blood pressure can be rechecked. You are only on 2 pills and were on 4 blood pressure pills before. Referrals: Cliff Sterling MD [Primary Care Provider] - Disposition: HOME - Home Medications Comprehensive Discharge Medication List: Ambulatory Orders Metoprolol Succinate 50 mg PO DAILY 09/17/17 Acetaminophen [Tylenol .Regular Strength -] 650 mg PO Q4H PRN tablet 09/22/17 Lactobacillus Acidophilus [Bacid -] 2 tab PO DAILY tab 09/22/17 Nifedipine ER [Procardia XL -] 60 mg PO DAILY tab.er.24 09/22/17 Potassium Chloride [K-Dur -] 10 meq PO BID #60 tablet.er 09/22/17
== END 2017-09-22 11:25 | disposition home or self-care (01) | DRG 389 ==
LOC: JER 20:31 → JERBED 09-17 01:15 → J8W 09-17 02:34
PROVIDERS: ADMIT Internal Medicine; ATTEND Internal Medicine
DX: K56.7 Ileus, unspecified (principal); E87.2 Acidosis; N39.0 Urinary tract infection, site not specified; J98.11 Atelectasis; A08.4 Viral intestinal infection, unspecified; E87.6 Hypokalemia; I10 Essential (primary) hypertension; E78.5 Hyperlipidemia, unspecified; R09.02 Hypoxemia; Z88.0 Allergy status to penicillin; E66.9 Obesity, unspecified; K21.9 Gastro-esophageal reflux disease without esophagitis; Z68.28 Body mass index [BMI] 28.0-28.9, adult
CPT/HCPCS: 36415; 71045-TC-FY; 71250-TC; 74019-TC-FY; 74176-TC; 80048; 80053; 81003; 81015; 82550; 82803; 83605; 83735; 83880; 84484; 85025; 85610; 85730; 86850; 86900; 86901; 87040; 87045; 87046; 87086; 87177; 87186; 87209; 87324; 87449; 93005; 93010; 97116-GP; 97161-GP; 99283-25

== ENCOUNTER 2018-06-16 03:05 | Inpatient (IN) | payer OTHER, MEDICARE ==
[2018-06-16 03:16] VITALS: BMI 28.3
[2018-06-16] MEDS ORDERED: ONDANSETRON 4 MG/2 ML VIAL IVPUSH ONE ×2 (03:21→05:34)
[2018-06-16] MEDS ORDERED: SODIUM CHLORIDE 0.9% 1000 ML INFUS.BAG IV ONE (03:21)
[2018-06-16] MEDS ORDERED: ACETAMINOPHEN 1000 MG/100 ML VIAL (NON FORMULARY) IVPB ONE (03:21)
[2018-06-16] MEDS ORDERED: ACETAMINOPHEN INJECTION 100 ML IVPB ONE (03:26)
[2018-06-16] MEDS ORDERED: ONDANSETRON 4 MG/2 ML VIAL ONE ×2 (03:26→05:35)
[2018-06-16 04:44] LABS: BASO % 0.6 % (0-2.0); EOS % 0.3 % (0-4.5); HEMATOCRIT 44.6 % (32.4-45.2); HEMOGLOBIN 15.9 GM/dL (10.7-15.3); LYMPH % 11.9 % (8-40); MCHC 35.6 g/dl (32.0-36.0); MEAN CELL VOLUME 81.5 fl (80-96); MEAN PLT VOLUME 8.8 fl (7.5-11.1); MONO % 7.1 % (3.8-10.2); NEUT % 80.1 % (42.8-82.8); PLATELET COUNT 284 K/MM3 (134-434); RBC 5.48 M/mm3 (3.60-5.2); RDW 14.1 % (11.6-15.6); WHITE BLOOD COUNT 12.7 K/mm3 (4.0-10.0)
[2018-06-16 04:46] LABS: URINE APPEARANCE SLCLOUDY; URINE BILIRUBIN NEGATIVE (<2.0 mg/dL); URINE COLOR YELLOW; URINE GLUCOSE (UA) NEGATIVE (NEGATIVE); URINE KETONE NEGATIVE (NEGATIVE); URINE LEUK ESTERASE 2+ (NEGATIVE); URINE NITRITE NEGATIVE (NEGATIVE); URINE PROTEIN 2+ (NEGATIVE); URINE UROBILINOGEN NEGATIVE mg/dL (0.2-1.0)
[2018-06-16 04:57] LABS: ALBUMIN 4.1 g/dl (3.4-5.0); ALK PHOS 89 U/L (45-117); ANION GAP 14 MMOL/L (8-16); BILIRUBIN,TOTAL 1.2 mg/dL (0.2-1); BLOOD UREA NITROGEN 17 mg/dL (7-18); CALCIUM 9.8 mg/dL (8.5-10.1); CHLORIDE 100 mmol/L (98-107); CO2 24 mmol/L (21-32); CREATININE 0.8 mg/dL (0.55-1.3); EPI CELLS FEW /HPF (FEW); GLUCOSE,RANDOM 137 mg/dL (74-106); LIPASE 167 U/L (73-393); SGOT/AST 18 U/L (15-37); SGPT/ALT 23 U/L (13-61); SODIUM 137 mmol/L (136-145); TOT PROT 8.4 g/dl (6.4-8.2); URINE BACTERIA FEW /hpf (NONE SEEN); URINE MUCUS RARE
--- NOTE | 2018-06-16 05:04 | PDOC ---
History of Present Illness - General Chief Complaint: Pain, Acute Stated Complaint: ABD PAIN N/V Time Seen by Provider: 06/16/18 03:17 - History of Present Illness Initial Comments: 06/16/18 05:05 Chief complaint nausea vomiting abdominal pain History of present illness: 82 years old past medical history significant for hypertension hyperlipidemia GERD small bowel obstruction status post colon resection cholecystectomy, joint replacement presents to the emergency department with one-day history of moderate to severe abdominal pain persistent constant associated with several episodes of nonbilious nonbloody emesis. Symptoms are persistent constant no exacerbating or alleviating factors at home. Past History - Past Medical History Allergies/Adverse Reactions: Allergies Allergy/AdvReac Type Severity Reaction Status Date / Time azithromycin Allergy Verified 09/16/17 20:41 levofloxacin [From Levaquin] Allergy Verified 09/16/17 20:41 lisinopril [From Zestril] Allergy Verified 09/16/17 20:41 meperidine HCl [From Demerol] Allergy Verified 09/16/17 20:41 morphine Allergy Verified 09/16/17 22:25 Penicillins Allergy Verified 09/16/17 20:41 sulphur Allergy Uncoded 09/16/17 20:41 Home Medications: Ambulatory Orders Metoprolol Succinate 50 mg PO DAILY 09/17/17 Acetaminophen [Tylenol .Regular Strength -] 650 mg PO Q4H PRN tablet 09/22/17 Nifedipine ER [Procardia XL -] 60 mg PO DAILY tab.er.24 09/22/17 Irbesartan/Hydrochlorothiazide [Irbesartan-Hctz 300-12.5 mg Tb] 1 each PO DAILY 06/16/18 COPD: No HTN: Yes Hypercholesterolemia: Yes - Surgical History Abdominal Surgery: Yes (sbo) Cholecystectomy: Yes Orthopedic Surgery: Yes (Left lower leg sx ()) - Immunization History Immunization Up to Date: No - Suicide/Smoking/Psychosocial Hx Smoking History: Never smoked Have you smoked in the past 12 months: No Hx Alcohol Use: No Drug/Substance Use Hx: No Substance Use Type: None Review of Systems - Review of Systems Comments:: 06/16/18 05:05 ROS: A complete review of 10 out of 10 review of systems is taken and is negative apart from what is previously mentioned below and in the HPI. *Physical Exam - Vital Signs Last Vital Signs Temp Pulse Resp BP Pulse Ox 97.4 F L 70 18 152/87 100 06/16/18 03:12 06/16/18 03:12 06/16/18 03:12 06/16/18 03:12 06/16/18 03:12 - Physical Exam Comments: 06/16/18 05:05 Vitals: Triage Vital signs reviewed General Appearance:moderate distress, well nourished well developed, Head: Atraumatic, Neck: Supple;No Nucal rigidity Chest Wall: Nontender Cardiac: Regular rate and rhythym Lungs: Clear to auscultation bilateral, good air movement bilaterally, Abdomen: Soft, non distended, normal bowel sounds, diffuse lower abdominal tenderness to palpation Extremities: Full range of motion to all extremities, no cyanosis, clubbing, or edema Skin: Warm and dry, no rashes or lesions, no rash, no petechiae Psych: normal mood, normal affect 06/16/18 07:19 Moderate Sedation - Procedure Monitoring Vital Signs: Procedure Monitoring Vital Signs Temperature 97.4 F L 06/16/18 03:12 Pulse Rate 70 06/16/18 03:12 Respiratory Rate 18 06/16/18 03:12 Blood Pressure 152/87 06/16/18 03:12 O2 Sat by Pulse Oximetry (%) 100 06/16/18 03:12 ED Treatment Course - LABORATORY CBC & Chemistry Diagram: 06/16/18 03:45 06/16/18 03:45 - ADDITIONAL ORDERS Additional order review: Laboratory Results 06/16/18 06/16/18 03:45 03:45 Sodium 137 Potassium 4.0 Chloride 100 Carbon Dioxide 24 Anion Gap 14 BUN 17 Creatinine 0.8 Creat Clearance w eGFR > 60 Random Glucose 137 H Calcium 9.8 Total Bilirubin 1.2 H AST 18 ALT 23 Alkaline Phosphatase 89 Total Protein 8.4 H Albumin 4.1 Lipase 167 Urine Color Yellow Urine Appearance Slcloudy Urine pH 6.0 Ur Specific [place] 1.014 Urine Protein 2+ H Urine Glucose (UA) Negative Urine Ketones Negative Urine Blood Negative Urine Nitrite Negative Urine Bilirubin Negative Urine Urobilinogen Negative Ur Leukocyte Esterase 2+ H Urine WBC (Auto) 19 Urine RBC (Auto) 2 Ur Epithelial Cells Few Urine Bacteria Few Urine Mucus Rare 06/16/18 03:45 RBC 5.48 H MCV 81.5 MCHC 35.6 RDW 14.1 MPV 8.8 D Neutrophils % 80.1 D Lymphocytes % 11.9 D Monocytes % 7.1 Eosinophils % 0.3 D Basophils % 0.6 - RADIOLOGY Radiology Studies Ordered: Category Date Time Status ABDOMEN & PELVIS CT WITH CONTR [CT] Stat CT Scan 06/16/18 05:03 Ordered - Medications Given in the ED: ED Medications Discontinued Medications Generic Name Dose Route Start Last Admin Trade Name Elenita PRN Reason Stop Dose Admin Acetaminophen 1,000 mg 06/16/18 03:21 06/16/18 04:14 Ofirmev Injection - IVPB 06/16/18 03:22 1,000 mg ONCE ONE Administration Ondansetron HCl 4 mg 06/16/18 03:21 06/16/18 04:15 Zofran Injection IVPUSH 06/16/18 03:22 4 mg ONCE ONE Administration Sodium Chloride 1,000 ml 06/16/18 03:21 06/16/18 03:40 Normal Saline - IV 06/16/18 03:22 1,000 ml ONCE ONE Administration Medical Decision Making - Critical Care Time Total Critical Care Time (minutes): 45 Critical Care Statement: The care of this patient involved high complexity decision making to prevent further life threatening deterioration of the patient 's condition and/or to evaluate & treat vital organ system(s) failure or risk of failure. - Medical Decision Making 06/16/18 05:06 82 years old past medical history significant for hypertension hypercholesterolemia, abdominal surgeries including cholecystectomy, and partial bowel resection presents with severe abdominal pain nausea vomiting IV fluids labs IV Tylenol antiemetics ordered Labs notable for WBC at 12.7 and a lactic acid 5.1 30 mL per /kg NS ordered, Ertapenem ordered, 2/[address] with oral and IV contrast given multiple previous abdominal surgeries Reevaluation 645am EKG performed now shows new onset A. fib with RVR questionable lateral ischemic changes CT with oral and IV contrast unable to be performed given persistent nausea retching patient unable to tolerate by mouth in light of elevated lactic acid and now new onset A. fib greater concern for mesenteric ischemia We'll order CTA abdomen pelvis. IV diltiazem ordered Reglan and Benadryl ordered for persistent nausea vomiting Troponin added to labs. 7am. Dr. Thomas to follow up labs, CT, dispo and admit patient *DC/Admit/Observation/Transfer Diagnosis at time of Disposition: Abdominal pain - Discharge Dispostion Condition at time of disposition: Stable - Referrals Referrals: Cliff Sterling MD [Primary Care Provider] - - Patient Instructions - Post Discharge Activity
[2018-06-16] MEDS ORDERED: SODIUM CHLORIDE 2,177 ML IV ONE (05:07)
[2018-06-16] MEDS ORDERED: ERTAPENEM SODIUM 1 GM VIAL IM ONE (05:10)
[2018-06-16] MEDS ORDERED: ERTAPENEM SODIUM 1 GM VIAL ONE (05:13)
[2018-06-16] MEDS ORDERED: ERTAPENEM SODIUM 1 GM/50 ML PRE-DOCKED IVPB ONE (05:13)
[2018-06-16] MEDS ORDERED: dilTIAZem HCL 50 MG/10 ML - 10 ML VIAL IVPUSH ONE (06:42)
[2018-06-16] MEDS ORDERED: METOCLOPRAMIDE HCL INJECTION 10 MG/2 ML VIAL IVPB ONE (06:44)
[2018-06-16] MEDS ORDERED: METOCLOPRAMIDE HCL INJECTION 10 MG/2 ML VIAL ONE (06:45)
[2018-06-16] MEDS ORDERED: dilTIAZem HCL 50 MG/10 ML - 10 ML VIAL ONE (06:46)
[2018-06-16] MEDS: DILTIAZEM INJECTION 125 MG in SODIUM CHLORIDE 100 ML IVPB SCH (07:07)
--- NOTE | 2018-06-16 07:34 | PDOC ---
*Physical Exam - Vital Signs Last Vital Signs Temp Pulse Resp BP Pulse Ox 97.4 F L 125 H 19 135/73 98 06/16/18 03:12 06/16/18 07:10 06/16/18 07:10 06/16/18 07:10 06/16/18 07:10 ED Treatment Course - LABORATORY CBC & Chemistry Diagram: 06/16/18 08:52 06/16/18 09:20 - ADDITIONAL ORDERS Additional order review: Laboratory Results 06/16/18 06/16/18 06/16/18 03:45 03:45 03:45 Sodium 137 Potassium 4.0 Chloride 100 Carbon Dioxide 24 Anion Gap 14 BUN 17 Creatinine 0.8 Creat Clearance w eGFR > 60 Random Glucose 137 H Lactic Acid 5.1 H* Calcium 9.8 Total Bilirubin 1.2 H AST 18 ALT 23 Alkaline Phosphatase 89 Troponin I Total Protein 8.4 H Albumin 4.1 Lipase 167 Urine Color Yellow Urine Appearance Slcloudy Urine pH 6.0 Ur Specific [place] 1.014 Urine Protein 2+ H Urine Glucose (UA) Negative Urine Ketones Negative Urine Blood Negative Urine Nitrite Negative Urine Bilirubin Negative Urine Urobilinogen Negative Ur Leukocyte Esterase 2+ H Urine WBC (Auto) 19 Urine RBC (Auto) 2 Ur Epithelial Cells Few Urine Bacteria Few Urine Mucus Rare 06/16/18 03:35 Sodium Potassium Chloride Carbon Dioxide Anion Gap BUN Creatinine Creat Clearance w eGFR Random Glucose Lactic Acid Calcium Total Bilirubin AST ALT Alkaline Phosphatase Troponin I < 0.02 Total Protein Albumin Lipase Urine Color Urine Appearance Urine pH Ur Specific [place] Urine Protein Urine Glucose (UA) Urine Ketones Urine Blood Urine Nitrite Urine Bilirubin Urine Urobilinogen Ur Leukocyte Esterase Urine WBC (Auto) Urine RBC (Auto) Ur Epithelial Cells Urine Bacteria Urine Mucus 06/16/18 03:45 RBC 5.48 H MCV 81.5 MCHC 35.6 RDW 14.1 MPV 8.8 D Neutrophils % 80.1 D Lymphocytes % 11.9 D Monocytes % 7.1 Eosinophils % 0.3 D Basophils % 0.6 - Medications Given in the ED: ED Medications Discontinued Medications Generic Name Dose Route Start Last Admin Trade Name Freq PRN Reason Stop Dose Admin Acetaminophen 1,000 mg 06/16/18 03:21 06/16/18 04:14 Ofirmev Injection - IVPB 06/16/18 03:22 1,000 mg ONCE ONE Administration Diltiazem HCl 10 mg 06/16/18 06:42 06/16/18 07:00 Cardizem Injection - IVPUSH 06/16/18 06:43 10 mg ONCE ONE Administration Diphenhydramine HCl 25 mg 06/16/18 06:44 06/16/18 07:00 Benadryl Injection - IVPB 06/16/18 06:45 25 mg ONCE ONE Administration Ertapenem 1 gm 06/16/18 05:10 06/16/18 06:00 Invanz - IM 06/16/18 05:11 Not Given ONCE ONE Protocol Ertapenem 1 gm 06/16/18 05:13 06/16/18 05:59 Invanz (Pre-Docked) IVPB 06/16/18 05:14 1 gm ONCE ONE Administration Sodium Chloride 2,177 mls @ 1,088.5 mls/hr 06/16/18 05:07 06/16/18 05:15 Normal Saline - 30 ml/kg infuse over 2 hr (2177 ml) 06/16/18 07:06 1,088.5 mls/hr IV Administration ONCE ONE Metoclopramide HCl 10 mg 06/16/18 06:44 06/16/18 07:07 Reglan Injection - IVPB 06/16/18 06:45 10 mg ONCE ONE Administration Ondansetron HCl 4 mg 06/16/18 03:21 06/16/18 04:15 Zofran Injection IVPUSH 06/16/18 03:22 4 mg ONCE ONE Administration Ondansetron HCl 4 mg 06/16/18 05:34 06/16/18 05:38 Zofran Injection IVPUSH 06/16/18 05:35 4 mg ONCE ONE Administration Sodium Chloride 1,000 ml 06/16/18 03:21 06/16/18 03:40 Normal Saline - IV 06/16/18 03:22 1,000 ml ONCE ONE Administration Medical Decision Making - Medical Decision Making 06/16/18 09:08 Dr. Rai, on-call surgeon, was contacted by phone. The case was discussed and she will see the patient today and consult Dr. Kelly"s service, who usually admits for Dr. Sterling, was contacted by phone. They recommended admission to the hospitalist. Jessica Grigsby, who is the hospitalist PA here today, was notified. She saw patient in the ER for admission. Patient received IV fluids as per sepsis protocol, and ertapenem, as ordered by Dr. Unger this morning. Maintenance fluids continued. Patient refuses NG tube despite it being strongly recommended. Her vomiting has subsided and there is been no further emesis since the CT scan. 06/16/18 09:18 Patient transiently in atrial fibrillation, on Cardizem drip, converted to normal sinus at a rate of 83/m. Nonspecific ST-T wave abnormality unchanged from prior EKG dated 09/16/2017. Cardiac enzymes are negative. 06/16/18 09:34 Received a call back from Dr. Kelly. Case was discussed in full, including the transient atrial fibrillation and a likely small bowel obstruction. He will admit the patient to [facility]. 06/16/18 12:42 Seen and evaluated by Dr. Rai in the emergency department. Clinically and hemodynamically stable. No further vomiting. Remains in normal sinus rhythm, occasional PVCs. Transported to [facility] for admission to telemetry, evaluation by admitting physician and follow-up I surgeon. *DC/Admit/Observation/Transfer Diagnosis at time of Disposition: SBO (small bowel obstruction) - Discharge Dispostion Condition at time of disposition: Fair Decision to Admit order: Yes - Referrals - Patient Instructions - Post Discharge Activity
[2018-06-16] MEDS ORDERED: SODIUM CHLORIDE 1,000 ML IV SCH (09:00)
[2018-06-16] MEDS ORDERED: LIDOCAINE HCL 2% JELLY (5 ML/TUBE) ONE (09:03)
[2018-06-16 09:39] LABS: BASO % 0.2 % (0-2.0); EOS % 0.3 % (0-4.5); HEMATOCRIT 45.7 % (32.4-45.2); HEMOGLOBIN 15.1 GM/dl (10.7-15.3); LYMPH % 5.5 % (8-40); MCH 28.5 pg (25.7-33.7); MEAN CELL VOLUME 86.2 fl (80-96); MEAN PLT VOLUME 8.9 fl (7.5-11.1); MONO % 8.7 % (3.8-10.2); NEUT % 85.3 % (42.8-82.8); PLATELET COUNT 299 K/MM3 (134-434); WHITE BLOOD COUNT 14.5 K/mm3 (4.0-10.8)
[2018-06-16 09:49] LABS: INR 1.01 (0.82-1.09); PROTHROMBIN TIME (PATIENT) 11.3 SEC (10.2-13.0)
[2018-06-16 09:57] LABS: ALBUMIN 3.6 g/dl (3.5-5.0); ALK PHOS 65 U/L (32-92); ANION GAP 11 MMOL/L (8-16); BILIRUBIN,TOTAL 1.2 mg/dl (0.2-1.0); BLOOD UREA NITROGEN 13 mg/dl (7-18); CALCIUM 8.5 mg/dl (8.4-10.2); CHLORIDE 101 mmol/L (98-107); CO2 22 mmol/L (22-28); CREATININE 0.7 mg/dl (0.6-1.3); GLUCOSE,RANDOM 127 mg/dl (74-106); POTASSIUM 3.7 mmol/L (3.5-5.1); SGOT/AST 28 U/L (10-42); SGPT/ALT 18 U/L (10-40); SODIUM 134 mmol/L (136-145); TOT PROT 7.3 g/dl (6.4-8.3)
--- NOTE | 2018-06-16 10:52 | CONSULT ---
Consult Consult Specialty:: General Surgery Referred by:: Dr. Hernandez Reason for Consultation:: SBO - History of Present Illness Chief Complaint: diffuse abdominal pain, n/v History of Present Illness: 82yo Irish F with HTN, HLD, s/p lap winifred and surgeries for diverticulitis with partial sigmoid resection (? 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 She was experiencing some pain before eating, but it had initially gotten better. In the ER, wbc was 12.7, Hb 15.9, lactate 5.[address] showed likely small bowel obstruction with evidence of above surgeries. She was given IV fluids, one dose Ertapenem, and surgery was called to evaluate. She has refused NGT to ER doctor. She had normal BM yesterday, no diarrhea, and no gas yesterday, but has passed some today. She vomited the oral contrast for CT, so did not get much down. She did get IV tylenol, and pain is currently better. She was noted before CT to have afib with RVR at 136 on EKG and given Diltiazem bolus and is on low drip, with conversion to sinus with ectopic beats. Troponin is in normal range. K+ was initially 4, repeated at 3.7 after hydration. She voided after CT. She is seen in ER, on stretcher, resting comfortably. She clearly states she does not want surgery or the NG tube. She reports having been here in September for similar symptoms, and it got better without the tube, which she has had in the past. Review of [facility] confirms this admission. She is a little unclear on the surgical history - lap winifred preceded surgery for diverticulitis and obstruction. 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 She reports Dr. Sterling sent her back to [facility] a year or two ago for recheck, and they told her she was fine. She denies having had any chemotherapy. From GI CONSULT 3/[address] Sheridan: "Ms. Macias's [id number] was present bedside and they both gave me history. Ms. Macias has a complicated surgical history. 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 cholecystectomy. She states that she was followed at [facility] for 5 years due to this but never required chemotherapy. She is also followed by clin application specialist Dr. Heron Cosme in [place]. she explained that he performed her colonoscopies (the last being 2-3 years ago. was OK per patient) and performing ? capsule endoscopy (for ? obscure bleeding previously). she also has surgical sutures along her sigmoid colon. She was unable to give me clear history regarding the etiology of this surgery. She denies rectal bleeding , melena, night sweats, unintentional weight loss. She was recently admitted to [facility] 06/02 s/p fall with LLE surgeries x 2. She was also noted to have an intracranial bleed at that time as well, sent to [place] for rehab, was noted to have A. Fib (? 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 staple line present, from diverticulitis per pt), Colonoscopy (see hpi) , Joint Replacement (bilateral hip) Additional Surgical History: small bowel resection (lymphoma? 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 Occupation: Retired History of Recent Travel: No Home Medications - Allergies Allergies/Adverse Reactions: Allergies Allergy/AdvReac Type Severity Reaction Status Date / Time azithromycin Allergy Verified 09/16/17 20:41 levofloxacin [From Levaquin] Allergy Verified 09/16/17 20:41 lisinopril [From Zestril] Allergy Verified 09/16/17 20:41 meperidine HCl [From Demerol] Allergy Verified 09/16/17 20:41 morphine Allergy Verified 09/16/17 22:25 Penicillins Allergy Verified 09/16/17 20:41 sulphur Allergy Uncoded 09/16/17 20:41 - Home Medications Home Medications: Ambulatory Orders Metoprolol Succinate 50 mg PO DAILY 09/17/17 Acetaminophen [Tylenol .Regular Strength -] 650 mg PO Q4H PRN tablet 09/22/17 Nifedipine ER [Procardia XL -] 60 mg PO DAILY tab.er.24 09/22/17 Irbesartan/Hydrochlorothiazide [Irbesartan-Hctz 300-12.5 mg Tb] 1 each PO DAILY 06/16/18 Family Disease History - Family Disease History Family Disease History: Heart Disease: Mother (: 37: reaction from bee sting ), Other: Father (: 56: CVA), Mother, Brother (1, healthy), Sister (2, healthy), Son (3, healthy) Review of Systems - Review of Systems Constitutional: denies: Chills, Fever Eyes: denies: Blurred Vision, Recent Change in Vision HENT: reports: Hearing Loss (hearing aids, but they are not with her). denies: Difficult Swallowing, Nasal Congestion, Throat Pain Neck: denies: Swollen Glands, Tenderness Cardiovascular: denies: Chest Pain, Palpitations Respiratory: denies: Cough, SOB Gastrointestinal: reports: Abdominal Pain (diffuse with hpi), Bloating (with hpi ), Nausea (with hpi), Vomiting (with hpi). denies: Constipation, Diarrhea Genitourinary: denies: Burning, Dysuria Musculoskeletal: denies: Back Pain, Joint Pain, Muscle Pain Integumentary: denies: Change in Color, Rash Neurological: denies: Dizziness, Headache Psychiatric: denies: Anxiety, Depression Physical Exam Vital Signs: Vital Signs Temperature 98.3 F 06/16/18 09:32 Pulse Rate 80 06/16/18 10:22 Respiratory Rate 18 06/16/18 10:22 Blood Pressure 114/93 06/16/18 10:22 O2 Sat by Pulse Oximetry (%) 94 L 06/16/18 10:22 monitor and pulse with irregular/ectopic beats - pvc's? Constitutional: Yes: Well Nourished, No Distress, Calm Eyes: Yes: Conjunctiva Clear, EOM Intact HENT: Yes: Atraumatic, Normocephalic Neck: Yes: Supple, Trachea Midline Cardiovascular: Yes: Pulse Irregular (ectopic beats present). No: Bradycardia, Tachycardia Respiratory: Yes: Regular, CTA Bilaterally Gastrointestinal: Yes: Soft, Distention (some, but no tympany), Hernia ( palpable diastasis/soft area in midline under scar), Hypoactive Bowel Sounds ( nearly absent), Other (well-healed midline periumbilical scar, laparoscopic scars in upper abdomen and RLQ). No: Tenderness, Tenderness, Epigastrium ...Rectal Exam: Yes: Deferred Renal/: No: CVA Tenderness - Left, CVA Tenderness - Right Musculoskeletal: No: Joint Stiffness, Joint Swelling Extremities: Yes: Other (healed scar left ankle). No: Cool, Cyanosis Edema: No Peripheral Pulses WNL: Yes Integumentary: No: Jaundice, Rash Neurological: Yes: Alert, Oriented Psychiatric: Yes: Alert, Oriented Labs: CBC, BMP 06/16/18 08:52 06/16/18 09:20 CMP Sodium 134 mmol/L (136-145) L 06/16/18 09:20 Potassium 3.7 mmol/L (3.5-5.1) 06/16/18 09:20 Chloride 101 mmol/L (98-107) 06/16/18 09:20 Carbon Dioxide 22 mmol/L (22-28) 06/16/18 09:20 Anion Gap 11 MMOL/L (8-16) 06/16/18 09:20 BUN 13 mg/dl (7-18) 06/16/18 09:20 Creatinine 0.7 mg/dl (0.6-1.3) 06/16/18 09:20 Creat Clearance w eGFR > 60 (>60) 06/16/18 09:20 Random Glucose 127 mg/dl (74-106) H 06/16/18 09:20 Lactic Acid 4.6 mmol/L (0.4-2.0) H* 06/16/18 09:20 Calcium 8.5 mg/dl (8.4-10.2) 06/16/18 09:20 Total Bilirubin 1.2 mg/dl (0.2-1.0) H 06/16/18 09:20 AST 28 U/L (10-42) 06/16/18 09:20 ALT 18 U/L (10-40) 06/16/18 09:20 Alkaline Phosphatase 65 U/L (32-92) 06/16/18 09:20 Troponin I < 0.03 ng/ml (0.00-0.06) 06/16/18 09:00 Total Protein 7.3 g/dl (6.4-8.3) 06/16/18 09:20 Albumin 3.6 g/dl (3.5-5.0) 06/16/18 09:20 Lipase 167 U/L (73-393) 06/16/18 03:45 K from 4.0 lactate from 5.1 bili slt up s/p cholecystectomy H/H high - Hb down only from 15.9 wbc up from 12.7 INR, PTT INR 1.01 (0.82-1.09) 06/16/18 09:20 Urine Test Results Urine Color Yellow 06/16/18 03:45 Urine Appearance Slcloudy 06/16/18 03:45 Urine pH 6.0 (5.0-8.0) 06/16/18 03:45 Ur Specific [place] 1.014 (1.010-1.035) 06/16/18 03:45 Urine Protein 2+ (NEGATIVE) H 06/16/18 03:45 Urine Glucose (UA) Negative (NEGATIVE) 06/16/18 03:45 Urine Ketones Negative (NEGATIVE) 06/16/18 03:45 Urine Blood Negative (NEGATIVE) 06/16/18 03:45 Urine Nitrite Negative (NEGATIVE) 06/16/18 03:45 Urine Bilirubin Negative (<2.0 mg/dL) 06/16/18 03:45 Ur Leukocyte Esterase 2+ (NEGATIVE) H 06/16/18 03:45 Ur Epithelial Cells Few /HPF (FEW) 06/16/18 03:45 Urine Bacteria Few /hpf (NONE SEEN) 06/16/18 03:45 Urine Mucus Rare 06/16/18 03:45 Imaging - Results Cat Scan: Report Reviewed, Image Reviewed (images personally reviewed - dilated , fluid-filled stomach and small bowel to just after distal SB anastomosis in LLQ (poss transition), contrast to mid-SB with fluid after that to fecalized SB loops distally near transition, also distal sigmoid staple line noted, s/p winifred ; artifact from bilateral hip replacements present, no free air or fluid) Problem List - Problems (1) Small bowel obstruction due to adhesions Assessment/Plan: admitted to medicine keep NPO (complete) on IVF - needs further resuscitation replete K+ to normal serial AXR and exams nonnarcotic pain meds only prn - if pain requires narcotics, she should be reevaluated by MD trend labs and lactate patient has repeatedly refused NGT: I explained that risks of not decompressing bowel include progressive dilation and possible perforation, which could require emergency surgery and ostomy, and that obstruction may not resolve without decompression in addition to bowel rest, or could need surgery she does not want surgery, and she does not want tube discussed with ER and Dr. Kelly defer to med/cardio regarding arrhythmia will follow with you Code(s): K56.50 - INTESTNL ADHESIONS, UNSP TO PARTIAL VERSUS COMPLETE OBST (2) Dehydration Code(s): E86.0 - DEHYDRATION (3) HTN (hypertension) Code(s): I10 - ESSENTIAL (PRIMARY) HYPERTENSION Qualifiers: Hypertension type: essential hypertension Qualified Code(s): I10 - Essential (primary) hypertension (4) HLD (hyperlipidemia) Code(s): E78.5 - HYPERLIPIDEMIA, UNSPECIFIED Qualifiers: Hyperlipidemia type: unspecified Qualified Code(s): E78.5 - Hyperlipidemia , unspecified
[2018-06-16] MEDS: LACTATED RINGERS SOLUTION 1000 ML INFUS.BAG IV ONE ×2 (10:55→11:44)
[2018-06-16] MEDS ORDERED: ONDANSETRON 4 MG/2 ML VIAL IVPUSH PRN (13:33)
[2018-06-16] MEDS ORDERED: ACETAMINOPHEN 1000 MG/100 ML VIAL (NON FORMULARY) IVPB PRN (13:40)
--- NOTE | 2018-06-16 13:42 | HP ---
Admitting History and Physical - Primary Care Physician PCP: Cliff Sterling - Admission Chief Complaint: I have stomach pain and threw up History of Present Illness: Ms Macias is a pleasant 82 year old female who was transferred from [facility] with SBO. She says that she was in her normal state of health until last night (however the son states she was starting to have slight abdominal pain 2 weeks ago) but she developed sudden onset abdominal pain with vomiting. She says the pain is throughout her abdomen and does not radiate. She says it is constant. She cannot describe the type of pain. She says at its worst, it is a 9/10. She does not know of anything that exacerbates or relieves it. She says the emesis was food at first and then bilious, she denies coffee ground emesis or bright red blood. She has been having normal bowel movements with her last bowel movement being yesterday. She denies fevers, chills, lightheadedness, dizziness, passing out, chest pain, shortness of breath, difficulty or pain on urination, or swelling. 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 staple line present, from diverticulitis per pt), Colonoscopy (see hpi) , Joint Replacement (bilateral hip) - Smoking History Smoking history: Never smoked Have you smoked in the past 12 months: No - Alcohol/Substance Use Hx Alcohol Use: No History of Substance Use: reports: None - Social History Usual Living Arrangement: Yes: Alone ADL: Support Services Occupation: Retired History of Recent Travel: No Home Medications - Allergies Allergies/Adverse Reactions: Allergies Allergy/AdvReac Type Severity Reaction Status Date / Time azithromycin Allergy Verified 09/16/17 20:41 levofloxacin [From Levaquin] Allergy Verified 09/16/17 20:41 lisinopril [From Zestril] Allergy Verified 09/16/17 20:41 meperidine HCl [From Demerol] Allergy Verified 09/16/17 20:41 morphine Allergy Verified 09/16/17 22:25 Penicillins Allergy Verified 09/16/17 20:41 sulphur Allergy Uncoded 09/16/17 20:41 - Home Medications Home Medications: Ambulatory Orders Metoprolol Succinate 50 mg PO DAILY 09/17/17 Acetaminophen [Tylenol .Regular Strength -] 650 mg PO Q4H PRN tablet 09/22/17 Nifedipine ER [Procardia XL -] 60 mg PO DAILY tab.er.24 09/22/17 Irbesartan/Hydrochlorothiazide [Irbesartan-Hctz 300-12.5 mg Tb] 1 each PO DAILY 06/16/18 Family Disease History - Family Disease History Family Disease History: Heart Disease: Mother (: 37: reaction from bee sting ), Other: Father (: 56: CVA), Mother, Brother (1, healthy), Sister (2, healthy), Son (3, healthy) Review of Systems Findings/Remarks: Full review of systems obtained, as per HPI and otherwise negative Physical Examination Vital Signs: Vital Signs Temperature 36.9 C 06/16/18 13:25 Pulse Rate 82 06/16/18 13:25 Respiratory Rate 20 06/16/18 13:25 Blood Pressure 135/80 06/16/18 13:25 O2 Sat by Pulse Oximetry (%) 100 06/16/18 11:58 Constitutional: Yes: Well Nourished, No Distress, Calm Eyes: Yes: Conjunctiva Clear, EOM Intact, PERRL HENT: Yes: Atraumatic, Normocephalic Cardiovascular: Yes: Regular Rate and Rhythm. No: Gallop, Murmur, Rub Respiratory: Yes: Regular, CTA Bilaterally. No: Rales, Rhonchi, Wheezes Gastrointestinal: Yes: Soft, Hypoactive Bowel Sounds, Tenderness. No: Normal Bowel Sounds, Distention Extremities: Yes: WNL Edema: No Labs: CBC, BMP 06/16/18 08:52 06/16/18 09:20 Imaging - Results Cat Scan: Report Reviewed (preliminary report reviewed) Problem List - Problems (1) SBO (small bowel obstruction) Assessment/Plan: -patient presents with SBO -case d/w Dr Rai and Dr William -NGT placed, currently draining 500mL bilious fluid -npo -hydration -conservative management Code(s): K56.609 - UNSP INTESTNL OBST, UNSP TO PARTIAL VERSUS COMPLETE OBST (2) Paroxysmal atrial fibrillation with rapid ventricular response Assessment/Plan: -patient presented with afib with rvr -started on diltiazem gtt -currently in sinus rhythm -will titrate off diltiazem gtt -cardiology consult -while npo consider IV metoprolol as takes oral metoprolol as an outpatient Code(s): I48.0 - PAROXYSMAL ATRIAL FIBRILLATION (3) Dehydration Assessment/Plan: -continue IVF Code(s): E86.0 - DEHYDRATION (4) Lactic acid acidosis Assessment/Plan: -secondary to dehydration and SBO -improving with fluids -recheck in am Code(s): E87.2 - ACIDOSIS (5) Leukocytosis Assessment/Plan: -suspect secondary to dehydration and stress induced from SBO -received ertapenem in the ED -ID consulted and case d/w Dr Cruz -will follow up blood cultures (unfortunately drawn after ertapenem given) -monitor off further antibiotics Code(s): D72.829 - ELEVATED WHITE BLOOD CELL COUNT, UNSPECIFIED (6) HTN (hypertension) Assessment/Plan: -currently on diltiazem gtt Code(s): I10 - ESSENTIAL (PRIMARY) HYPERTENSION Qualifiers: Hypertension type: essential hypertension Qualified Code(s): I10 - Essential (primary) hypertension
--- NOTE | 2018-06-16 14:35 | CON.GI ---
Consult Consult Specialty:: GI Referred by:: Dr Kelly Reason for Consultation:: SBO - History of Present Illness Chief Complaint: 82 y.o. woman with complicated past medical history including small bowel lymphoma and one prior admission for SBO here in September 2017. Case discussed with Dr Rai of surgery. Pt now admitted with vomiting and obvious SBO on CT scanning. NG tube placed about half an hour ago with 500 cc of bilious nonbloody fluid obtained. 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 staple line present, from diverticulitis per pt), Colonoscopy (see hpi) , Joint Replacement (bilateral hip) Additional Surgical History: small bowel resection (lymphoma? 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) ADL: Support Services Occupation: Retired History of Recent Travel: No Home Medications - Allergies Allergies/Adverse Reactions: Allergies Allergy/AdvReac Type Severity Reaction Status Date / Time azithromycin Allergy Verified 09/16/17 20:41 levofloxacin [From Levaquin] Allergy Verified 09/16/17 20:41 lisinopril [From Zestril] Allergy Verified 09/16/17 20:41 meperidine HCl [From Demerol] Allergy Verified 09/16/17 20:41 morphine Allergy Verified 09/16/17 22:25 Penicillins Allergy Verified 09/16/17 20:41 sulphur Allergy Uncoded 09/16/17 20:41 - Home Medications Home Medications: Ambulatory Orders Metoprolol Succinate 50 mg PO DAILY 09/17/17 Acetaminophen [Tylenol .Regular Strength -] 650 mg PO Q4H PRN tablet 09/22/17 Nifedipine ER [Procardia XL -] 60 mg PO DAILY tab.er.24 09/22/17 Irbesartan/Hydrochlorothiazide [Irbesartan-Hctz 300-12.5 mg Tb] 1 each PO DAILY 06/16/18 Family Disease History - Family Disease History Family Disease History: Heart Disease: Mother (: 37: reaction from bee sting ), Other: Father (: 56: CVA), Mother, Brother (1, healthy), Sister (2, healthy), Son (3, healthy) Physical Exam-GI Vital Signs: Vital Signs Temperature 98.5 F 06/16/18 14:06 Pulse Rate 82 06/16/18 14:06 Respiratory Rate 20 06/16/18 14:06 Blood Pressure 135/80 06/16/18 14:06 O2 Sat by Pulse Oximetry (%) 98 06/16/18 14:06 Constitutional: Yes: Well Nourished Eyes: Yes: WNL HENT: Yes: WNL Gastrointestinal Inspection: Yes: Distention (No tenderness even to deep palpation.) ...Auscultate: Yes: Hypoactive Bowel Sounds ...Palpate: Yes: Other (no tenderness even to deep palpation) ...Rectal Exam: Yes: Deferred Labs: CBC, BMP 06/16/18 08:52 06/16/18 09:20 INR, PTT INR 1.01 (0.82-1.09) 06/16/18 09:20 Imaging - Results Cat Scan: Image Reviewed Problem List - Problems (1) SBO (small bowel obstruction) Code(s): K56.609 - UNSP INTESTNL OBST, UNSP TO PARTIAL VERSUS COMPLETE OBST Assessment/Plan Small bowel obstruction. Despite her history of small bowel lymphoma I do not see any mass on the CT scan. The possibiilty of recurrent or new lymphoma remains but this is most likely adhesive SBO. Case discussed with Dr Rai and I concur with her plan, namely, NG suction and if no improvement in next 24 hours then surgical exploration.
--- NOTE | 2018-06-16 15:15 | CON.ID ---
Consult Consult Specialty:: infectious disease Referred by:: dr cha Reason for Consultation:: elevated wbc, elevated lactic acid - History of Present Illness Chief Complaint: sudden onset of abdominal pain and vomiting yesterday History of Present Illness: she drove herself to the ED with the above complaints +vomiting in ED history of prior SBO and multiple abdominal surgeries history of afib history small bowel lymphoma (remote) normal BM yesterday cta in ed (prelim) no ischemia, no appendicitis, no colitis, +SBO was refusing ngt- now placed and feeling better azithromycin and penicilln make her vomit levaquin makes her dizzy received ertapenem in ED this am - Past 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 staple line present, from diverticulitis per pt), Colonoscopy (see hpi) , Joint Replacement (bilateral hip) Additional Surgical History: small bowel resection (lymphoma? 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) ADL: Independent Occupation: Retired Place of : Other ([employer]) History of Recent Travel: No Home Medications - Allergies Allergies/Adverse Reactions: Allergies Allergy/AdvReac Type Severity Reaction Status Date / Time azithromycin Allergy Verified 09/16/17 20:41 levofloxacin [From Levaquin] Allergy Verified 09/16/17 20:41 lisinopril [From Zestril] Allergy Verified 09/16/17 20:41 meperidine HCl [From Demerol] Allergy Verified 09/16/17 20:41 morphine Allergy Verified 09/16/17 22:25 Penicillins Allergy Verified 09/16/17 20:41 sulphur Allergy Uncoded 09/16/17 20:41 - Home Medications Home Medications: Ambulatory Orders Metoprolol Succinate 50 mg PO DAILY 09/17/17 Acetaminophen [Tylenol .Regular Strength -] 650 mg PO Q4H PRN tablet 09/22/17 Nifedipine ER [Procardia XL -] 60 mg PO DAILY tab.er.24 09/22/17 Irbesartan/Hydrochlorothiazide [Irbesartan-Hctz 300-12.5 mg Tb] 1 each PO DAILY 06/16/18 Family Disease History - Family Disease History Family Disease History: Heart Disease: Mother (: 37: reaction from bee sting ), Other: Father (: 56: CVA), Mother, Brother (1, healthy), Sister (2, healthy), Son (3, healthy) Review of Systems - Review of Systems Constitutional: reports: No Symptoms Eyes: reports: No Symptoms HENT: reports: No Symptoms Neck: reports: No Symptoms Cardiovascular: reports: No Symptoms Respiratory: reports: No Symptoms Gastrointestinal: reports: Abdominal Pain, Vomiting Genitourinary: reports: No Symptoms Physical Exam Vital Signs: Vital Signs Temperature 98.5 F 06/16/18 14:06 Pulse Rate 82 06/16/18 14:06 Respiratory Rate 20 06/16/18 14:06 Blood Pressure 135/80 06/16/18 14:06 O2 Sat by Pulse Oximetry (%) 98 06/16/18 14:06 Constitutional: Yes: Well Nourished, No Distress, Calm Eyes: Yes: Conjunctiva Clear, EOM Intact HENT: Yes: Atraumatic, Normocephalic Neck: Yes: Supple Cardiovascular: Yes: Regular Rate and Rhythm, Pulse Irregular Respiratory: Yes: Regular, CTA Bilaterally Gastrointestinal: Yes: Normal Bowel Sounds, Soft. No: Tenderness, Epigastrium ...Rectal Exam: Yes: Deferred Extremities: Yes: WNL Edema: No Psychiatric: Yes: Alert, Oriented Labs: CBC, BMP 06/16/18 08:52 06/16/18 09:20 Imaging - Results Chest X-ray: Pending Cat Scan: Report Reviewed Problem List - Problems (1) SBO (small bowel obstruction) Code(s): K56.609 - UNSP INTESTNL OBST, UNSP TO PARTIAL VERSUS COMPLETE OBST (2) Leukocytosis Code(s): D72.829 - ELEVATED WHITE BLOOD CELL COUNT, UNSPECIFIED (3) Lactic acid acidosis Code(s): E87.2 - ACIDOSIS Assessment/Plan SBO with leukocytosis and lactic acidosis no clear source got ertapenem in the ED will get blood cultures, cxray f/u labs in am now with NGT she feels much better repeat labs observe off antibiotics d/w sons d/w hospitalist
[2018-06-16] MEDS: HEPARIN NA (PORCINE) 5,000 UNITS/ML 1ML VIAL SQ SCH (17:06)
--- NOTE | 2018-06-16 17:25 | EKG ---
Test Reason : Blood Pressure : / mmHG Vent. Rate : 083 BPM Atrial Rate : 083 BPM P-R Int : 170 ms QRS Dur : 090 ms QT Int : 416 ms P-R-T Axes : 040 -24 034 degrees QTc Int : 488 ms NORMAL SINUS RHYTHM NONSPECIFIC ST ABNORMALITY ABNORMAL ECG WHEN COMPARED WITH ECG OF 16-JUN-2018 06:39, SINUS RHYTHM HAS REPLACED ATRIAL FIBRILLATION VENT. RATE HAS DECREASED BY 53 BPM NONSPECIFIC T WAVE ABNORMALITY NO LONGER EVIDENT IN INFERIOR LEADS T WAVE INVERSION NO LONGER EVIDENT IN ANTEROLATERAL LEADS Confirmed by MD KARLA, NICK ([id number]) on 06/16/2018 5:25:28 PM Referred By: JAMES SAMANIEGO Confirmed By:NICK ACOSTA MD
--- NOTE | 2018-06-16 17:26 | EKG ---
Test Reason : Blood Pressure : / mmHG Vent. Rate : 136 BPM Atrial Rate : 150 BPM P-R Int : 000 ms QRS Dur : 084 ms QT Int : 342 ms P-R-T Axes : 000 -06 217 degrees QTc Int : 514 ms ATRIAL FIBRILLATION WITH RAPID VENTRICULAR RESPONSE ABNORMAL ECG WHEN COMPARED WITH ECG OF 16-SEP-2017 22:31, SIGNIFICANT CHANGES HAVE OCCURRED Confirmed by MD ACOSTA PENG ([id number]) on 06/16/2018 5:25:52 PM Referred By: MD BAEZ Confirmed By:NICK ACOSTA MD
[2018-06-17] MEDS: HEPARIN NA (PORCINE) 5,000 UNITS/ML 1ML VIAL SQ SCH ×3 (01:05→21:15)
[2018-06-17 06:32] LABS: BASO % 0.4 % (0-2.0); EOS % 2.7 % (0-4.5); HEMATOCRIT 39.1 % (32.4-45.2); HEMOGLOBIN 12.9 GM/dL (10.7-15.3); LYMPH % 28.1 % (8-40); MCH 27.9 pg (25.7-33.7); MEAN CELL VOLUME 84.4 fl (80-96); MEAN PLT VOLUME 8.3 fl (7.5-11.1); MONO % 10.4 % (3.8-10.2); NEUT % 58.4 % (42.8-82.8); PLATELET COUNT 201 K/MM3 (134-434); RBC 4.63 M/mm3 (3.60-5.2); RDW 14.2 % (11.6-15.6); WHITE BLOOD COUNT 7.1 K/mm3 (4.0-10.0)
[2018-06-17 08:02] LABS: ALBUMIN 2.9 g/dl (3.4-5.0); ALK PHOS 60 U/L (45-117); ANION GAP 10 MMOL/L (8-16); BILIRUBIN,TOTAL 1.4 mg/dL (0.2-1); BLOOD UREA NITROGEN 12 mg/dL (7-18); CALCIUM 7.8 mg/dL (8.5-10.1); CHLORIDE 105 mmol/L (98-107); CO2 27 mmol/L (21-32); CREATININE 0.6 mg/dL (0.55-1.3); GLUCOSE,RANDOM 90 mg/dL (74-106); MAGNESIUM 2.1 mg/dL (1.8-2.4); POTASSIUM 3.3 mmol/L (3.5-5.1); SGOT/AST 15 U/L (15-37); SGPT/ALT 16 U/L (13-61); SODIUM 142 mmol/L (136-145); TOT PROT 6.1 g/dl (6.4-8.2)
[2018-06-17] MEDS: D5-1/2NS+40 MEQ KCL - 40 MEQ/1,000 ML INFUS.BAG IV SCH (08:34)
[2018-06-17] MEDS: DILTIAZEM INJECTION 125 MG in SODIUM CHLORIDE 100 ML IVPB SCH (08:35)
[2018-06-17] MEDS ORDERED: HEPARIN NA (PORCINE) 5,000 UNITS/ML 1ML VIAL IVPUSH PRN ×2 (10:00)
[2018-06-17] MEDS ORDERED: HEPARIN - 25,000 UNIT in SODIUM CHLORIDE 495 ML IV SCH (10:00)
--- NOTE | 2018-06-17 10:10 | CON.CARD ---
Cardiology Consult (text) - Consultation Consultation Note: cc: abd pain hpi: 82 f hx pafib, htn, here with abd pain, vomiting. No cp sob palps dizzy loc pnd orthopnea le edema. Found to have sbo, now with ngt and feeling better. Hx of pafib per notes from 2017, now presented in er with afib and rvr and started on dilt gtt. pmh: per hpi psh: nc social: no tob fam: nc ros: per hpi; no fever, gib hematuria dysuria winter vision changes, muscle pain meds: Home Medications Medication Instructions Recorded Metoprolol Succinate 50 mg PO DAILY 09/17/17 Acetaminophen [Tylenol .Regular 650 mg PO Q4H PRN tablet 09/22/17 Strength -] Nifedipine ER [Procardia XL -] 60 mg PO DAILY tab.er.24 09/22/17 Irbesartan/Hydrochlorothiazide 1 each PO DAILY 06/16/18 [Irbesartan-Hctz 300-12.5 mg Tb] pe: Vital Signs Period Temp Pulse Resp BP Sys/Howard Pulse Ox Last 24 Hr 98.4 F-99.2 F 72-82 18-20 107-135/53-93 94-100 nad no jvd rrr s1s2 no mrg cta bl nl eff aaox3 no le e/c/c abd nt nd pos bs no jaundice diaphoresis pos dp pt no carotid bruits Laboratory Last Values WBC 7.1 K/mm3 (4.0-10.0) 06/17/18 05:30 RBC 4.63 M/mm3 (3.60-5.2) 06/17/18 05:30 Hgb 12.9 GM/dL (10.7-15.3) 06/17/18 05:30 Hct 39.1 % (32.4-45.2) 06/17/18 05:30 MCV 84.4 fl (80-96) 06/17/18 05:30 MCH 27.9 pg (25.7-33.7) 06/17/18 05:30 MCHC 33.0 g/dl (32.0-36.0) 06/17/18 05:30 RDW 14.2 % (11.6-15.6) 06/17/18 05:30 Plt Count 201 K/MM3 (134-434) D 06/17/18 05:30 MPV 8.3 fl (7.5-11.1) 06/17/18 05:30 Absolute Neuts (auto) 4.1 K/mm3 (1.5-8.0) 06/17/18 05:30 Neutrophils % 58.4 % (42.8-82.8) D 06/17/18 05:30 Lymphocytes % 28.1 % (8-40) D 06/17/18 05:30 Monocytes % 10.4 % (3.8-10.2) H 06/17/18 05:30 Eosinophils % 2.7 % (0-4.5) D 06/17/18 05:30 Basophils % 0.4 % (0-2.0) 06/17/18 05:30 Nucleated RBC % 0 % (0-0) 06/17/18 05:30 PT with INR 11.3 SEC (10.2-13.0) 06/16/18 09:20 INR 1.01 (0.82-1.09) 06/16/18 09:20 Sodium 142 mmol/L (136-145) 06/17/18 05:30 Potassium 3.3 mmol/L (3.5-5.1) L 06/17/18 05:30 Chloride 105 mmol/L (98-107) 06/17/18 05:30 Carbon Dioxide 27 mmol/L (21-32) 06/17/18 05:30 Anion Gap 10 MMOL/L (8-16) 06/17/18 05:30 BUN 12 mg/dL (7-18) 06/17/18 05:30 Creatinine 0.6 mg/dL (0.55-1.3) 06/17/18 05:30 Creat Clearance w eGFR > 60 (>60) 06/17/18 05:30 Random Glucose 90 mg/dL (74-106) 06/17/18 05:30 Lactic Acid 0.8 mmol/L (0.4-2.0) 06/17/18 05:30 Calcium 7.8 mg/dL (8.5-10.1) L 06/17/18 05:30 Phosphorus 3.0 mg/dL (2.5-4.9) 06/17/18 05:30 Magnesium 2.1 mg/dL (1.8-2.4) 06/17/18 05:30 Total Bilirubin 1.4 mg/dL (0.2-1) H 06/17/18 05:30 AST 15 U/L (15-37) 06/17/18 05:30 ALT 16 U/L (13-61) 06/17/18 05:30 Alkaline Phosphatase 60 U/L (45-117) 06/17/18 05:30 Troponin I < 0.03 ng/ml (0.00-0.06) 06/16/18 09:00 Total Protein 6.1 g/dl (6.4-8.2) L 06/17/18 05:30 Albumin 2.9 g/dl (3.4-5.0) L 06/17/18 05:30 Lipase 167 U/L (73-393) 06/16/18 03:45 Urine Color Yellow 06/16/18 03:45 Urine Appearance Slcloudy 06/16/18 03:45 Urine pH 6.0 (5.0-8.0) 06/16/18 03:45 Ur Specific Larose 1.014 (1.010-1.035) 06/16/18 03:45 Urine Protein 2+ (NEGATIVE) H 06/16/18 03:45 Urine Glucose (UA) Negative (NEGATIVE) 06/16/18 03:45 Urine Ketones Negative (NEGATIVE) 06/16/18 03:45 Urine Blood Negative (NEGATIVE) 06/16/18 03:45 Urine Nitrite Negative (NEGATIVE) 06/16/18 03:45 Urine Bilirubin Negative (<2.0 mg/dL) 06/16/18 03:45 Urine Urobilinogen Negative mg/dL (0.2-1.0) 06/16/18 03:45 Ur Leukocyte Esterase 2+ (NEGATIVE) H 06/16/18 03:45 Urine WBC (Auto) 19 /hpf (3-5) 06/16/18 03:45 Urine RBC (Auto) 2 /hpf (0-3) 06/16/18 03:45 Ur Epithelial Cells Few /HPF (FEW) 06/16/18 03:45 Urine Bacteria Few /hpf (NONE SEEN) 06/16/18 03:45 Urine Mucus Rare 06/16/18 03:45 Influenza A (Rapid) Negative 06/16/18 03:45 Influenza B (Rapid) Negative 06/16/18 03:45 Blood Type O POSITIVE 06/16/18 09:20 Antibody Screen Negative 06/16/18 08:52 cxr: clear lungs ecgs: afib with rvr. repeat ecg sr, nl intervals, no ischemic changes. a/p: 82 f hx pafib, htn, here with abd pain, vomiting. sbo: -per gi, surgery -attempting conservative management for now htn: -npo. on metoprolol at home, will use prn iv lopressor for now pafib: -presented in rvr, started dilt gtt, now in sr. -will dc dilt gtt and use prn lopressor iv for now while npo for sbo -chadsvasc score warrants AC so will start hep gtt for now while npo with sbo -check echo -cont tele
[2018-06-17] MEDS ORDERED: METOPROLOL TARTRATE 5 MG/5 ML VIAL IVPUSH PRN (10:12)
--- NOTE | 2018-06-17 10:30 | PN ---
Progress Note (short form) - Note Progress Note: Denies abdominal pain. Has not had a BM since admission. Intake & Output 06/14/18 06/15/18 06/16/18 06/17/18 23:59 23:59 23:59 23:59 Intake Total 5180 735 Output Total 1200 300 Balance 3980 435 Weight 160 lb Intake & Output 06/16/18 06/17/18 06/17/18 23:59 07:59 15:59 Intake Total 525 735 Output Total 700 300 Balance -175 435 Intake: IV 525 735 Cardizem Injection - 125 25 35 mg In Normal Saline - 100 ml @ 5 MG/HR 5 mls/hr IVPB TITR ABDIRIZAK Rx#: [id number] Normal Saline - 1,000 ml 500 700 @ 100 mls/hr IV ASDIR ABDIRIZAK Rx#:[id number] Output: Gastric Drainage 300 Urine 700 Void 700 Other: Voiding Method Bedpan Bedpan Did not have much NG output during evening yesterday. She is now sitting upright and her canister has 500 cc of bilious fluid in it. Abdominal exam: hypoactive bowel sounds. Soft, nontender. CBC, BMP 06/17/18 05:30 06/17/18 05:30 WBC down, Potassium low, Dr Kelly has already ordered corrective IV fluid. Will order FUA to help in assessment of obstruction. No sign so far of ischemic injury to small bowel. Problem List - Problems (1) SBO (small bowel obstruction) Code(s): K56.609 - UNSP INTESTNL OBST, UNSP TO PARTIAL VERSUS COMPLETE OBST
--- NOTE | 2018-06-17 10:59 | PN ---
Progress Note, Physician Chief Complaint: Ms Macias says she is feeling ok. Denies cp, sob, n/v, abdominal pain. No flatus or bm. - Current Medication List Current Medications: Active Medications Acetaminophen (Ofirmev Injection -) 1,000 mg IVPB Q6H PRN PRN Reason: PAIN Last Admin: 06/16/18 14:10 Dose: 1,000 mg Dextrose/Sodium Chloride (D5-1/2ns+40 Meq Kcl -) 40 meq in 1,000 mls @ 75 mls/ hr IV ASDIR ABDIRIZAK Last Admin: 06/17/18 08:34 Dose: 75 mls/hr Metoprolol Tartrate (Lopressor Injection -) 5 mg IVPUSH Q4H PRN PRN Reason: HYPERTENSION Ondansetron HCl (Zofran Injection) 4 mg IVPUSH Q6H PRN PRN Reason: NAUSEA - Objective Vital Signs: Vital Signs Temperature 37.2 C 06/17/18 10:00 Pulse Rate 72 06/17/18 10:00 Respiratory Rate 20 06/17/18 10:00 Blood Pressure 107/54 L 06/17/18 10:00 O2 Sat by Pulse Oximetry (%) 95 06/17/18 08:07 Constitutional: Yes: Well Nourished, No Distress, Calm Cardiovascular: Yes: Regular Rate and Rhythm. No: Gallop, Murmur, Rub Respiratory: Yes: Regular, CTA Bilaterally. No: Rales, Rhonchi, Wheezes Gastrointestinal: Yes: Soft, Hypoactive Bowel Sounds, Tenderness (slight). No: Normal Bowel Sounds, Distention Extremities: Yes: WNL Edema: No Labs: CBC, BMP 06/17/18 05:30 06/17/18 05:30 INR, PTT INR 1.01 (0.82-1.09) 06/16/18 09:20 Problem List - Problems (1) SBO (small bowel obstruction) Code(s): K56.609 - UNSP INTESTNL OBST, UNSP TO PARTIAL VERSUS COMPLETE OBST (2) Paroxysmal atrial fibrillation with rapid ventricular response Code(s): I48.0 - PAROXYSMAL ATRIAL FIBRILLATION (3) Dehydration Code(s): E86.0 - DEHYDRATION (4) Lactic acid acidosis Code(s): E87.2 - ACIDOSIS (5) Leukocytosis Code(s): D72.829 - ELEVATED WHITE BLOOD CELL COUNT, UNSPECIFIED (6) HTN (hypertension) Code(s): I10 - ESSENTIAL (PRIMARY) HYPERTENSION Qualifiers: Hypertension type: essential hypertension Qualified Code(s): I10 - Essential (primary) hypertension Assessment/Plan (1) SBO (small bowel obstruction) Assessment/Plan: -case d/w Dr William -continue NGT to LIWS -currently no flatus or bm -continue npo with hydration Code(s): K56.609 - UNSP INTESTNL OBST, UNSP TO PARTIAL VERSUS COMPLETE OBST (2) Paroxysmal atrial fibrillation with rapid ventricular response Assessment/Plan: -case d/w Dr Saunders -diltiazem gtt stopped -on prn metoprolol IV -patient declined heparin gtt, says this occurred in the past and she does not need her blood to be thin -aware of stroke risk Code(s): I48.0 - PAROXYSMAL ATRIAL FIBRILLATION (3) Dehydration Assessment/Plan: -change IVF to D5 1/2NS with 40mEq KCl Code(s): E86.0 - DEHYDRATION (4) Lactic acid acidosis Assessment/Plan: -resolved with fluids Code(s): E87.2 - ACIDOSIS (5) Leukocytosis Assessment/Plan: -resolved -secondary to dehydration Code(s): D72.829 - ELEVATED WHITE BLOOD CELL COUNT, UNSPECIFIED (6) HTN (hypertension) Assessment/Plan: -controlled Code(s): I10 - ESSENTIAL (PRIMARY) HYPERTENSION Qualifiers: Hypertension type: essential hypertension Qualified Code(s): I10 - Essential (primary) hypertension
--- NOTE | 2018-06-17 16:30 | PN ---
Progress Note, Physician History of Present Illness: Pt with small bowel obstruction secondary to adhesions, after multiple abdominal surgeries in past. NGT accepted and placed yesterday after arriving at [facility] from [place]. 900ml out with canister changed and almost 600ml in new one now. Pt using some lozenges for throat discomfort. Seen and examined in bed in room, son at bedside. She reports feeling better, abdomen less distended, no pain right now. She was up in chair earlier. AXR done this am shows NGT in stomach, persistently dilated SB loops in left abdomen, stool in colon. She has not moved her bowels yet. - Current Medication List Current Medications: Active Medications Acetaminophen (Ofirmev Injection -) 1,000 mg IVPB Q6H PRN PRN Reason: PAIN Last Admin: 06/16/18 14:10 Dose: 1,000 mg Heparin Sodium (Porcine) (Heparin -) 5,000 unit SQ TID ABDIRIZAK Dextrose/Sodium Chloride (D5-1/2ns+40 Meq Kcl -) 40 meq in 1,000 mls @ 75 mls/ hr IV ASDIR ABDIRIZAK Last Admin: 06/17/18 08:34 Dose: 75 mls/hr Metoprolol Tartrate (Lopressor Injection -) 5 mg IVPUSH Q4H PRN PRN Reason: HYPERTENSION Ondansetron HCl (Zofran Injection) 4 mg IVPUSH Q6H PRN PRN Reason: NAUSEA - Objective Vital Signs: Vital Signs Temperature 98.5 F 06/17/18 14:00 Pulse Rate 73 06/17/18 14:00 Respiratory Rate 20 06/17/18 14:00 Blood Pressure 128/66 06/17/18 14:00 O2 Sat by Pulse Oximetry (%) 95 06/17/18 08:07 Constitutional: Yes: Well Nourished, No Distress, Calm Eyes: Yes: Conjunctiva Clear, EOM Intact HENT: Yes: Atraumatic, Normocephalic, Other (NGT in place ~65cm at nares, translucent light fluid in tubing) Gastrointestinal: Yes: Soft, Distention (less than previous, much softer, some tympany but less). No: Tenderness, Tenderness, Epigastrium Extremities: No: Cool, Cyanosis Integumentary: No: Jaundice, Rash Neurological: Yes: Alert, Oriented Labs: CBC, BMP 06/17/18 05:30 06/17/18 05:30 CMP Sodium 142 mmol/L (136-145) 06/17/18 05:30 Potassium 3.3 mmol/L (3.5-5.1) L 06/17/18 05:30 Chloride 105 mmol/L (98-107) 06/17/18 05:30 Carbon Dioxide 27 mmol/L (21-32) 06/17/18 05:30 Anion Gap 10 MMOL/L (8-16) 06/17/18 05:30 BUN 12 mg/dL (7-18) 06/17/18 05:30 Creatinine 0.6 mg/dL (0.55-1.3) 06/17/18 05:30 Creat Clearance w eGFR > 60 (>60) 06/17/18 05:30 Random Glucose 90 mg/dL (74-106) 06/17/18 05:30 Lactic Acid 0.8 mmol/L (0.4-2.0) 06/17/18 05:30 Calcium 7.8 mg/dL (8.5-10.1) L 06/17/18 05:30 Phosphorus 3.0 mg/dL (2.5-4.9) 06/17/18 05:30 Magnesium 2.1 mg/dL (1.8-2.4) 06/17/18 05:30 Total Bilirubin 1.4 mg/dL (0.2-1) H 06/17/18 05:30 AST 15 U/L (15-37) 06/17/18 05:30 ALT 16 U/L (13-61) 06/17/18 05:30 Alkaline Phosphatase 60 U/L (45-117) 06/17/18 05:30 Troponin I < 0.03 ng/ml (0.00-0.06) 06/16/18 09:00 Total Protein 6.1 g/dl (6.4-8.2) L 06/17/18 05:30 Albumin 2.9 g/dl (3.4-5.0) L 06/17/18 05:30 Lipase 167 U/L (73-393) 06/16/18 03:45 K+ low - fluids changed, may need supplementation as well - ....Imaging X-ray: Report Reviewed, Image Reviewed (images reviewed - left abdomen with dilated sb loops, stool in colon, no free air, likely persistent sbo (no enteral contrast)) Problem List - Problems (1) Small bowel obstruction due to adhesions Assessment/Plan: continue NPO (complete) on IVF, NGT to low continuous wall suction (80-100) ok for lozenges but no red/orange/purple that could be mistaken for blood in effluent replete K+ to normal serial exams nonnarcotic pain meds only prn - if pain requires narcotics, she should be reevaluated by MD labs and lactate improved - wbc now normal, lactate normal, much better hydrated will consider PO contrast down NGT tomorrow discussed with Dr. Kelly will follow with you Code(s): K56.50 - INTESTNL ADHESIONS, UNSP TO PARTIAL VERSUS COMPLETE OBST (2) Dehydration Assessment/Plan: resolved Code(s): E86.0 - DEHYDRATION (3) HTN (hypertension) Code(s): I10 - ESSENTIAL (PRIMARY) HYPERTENSION Qualifiers: Hypertension type: essential hypertension Qualified Code(s): I10 - Essential (primary) hypertension (4) HLD (hyperlipidemia) Code(s): E78.5 - HYPERLIPIDEMIA, UNSPECIFIED Qualifiers: Hyperlipidemia type: unspecified Qualified Code(s): E78.5 - Hyperlipidemia , unspecified (5) Paroxysmal atrial fibrillation with rapid ventricular response Assessment/Plan: seen by cardiology in sinus rhythm off diltiazem drip defer mgmt to cardio/med Code(s): I48.0 - PAROXYSMAL ATRIAL FIBRILLATION
[2018-06-18] MEDS: HEPARIN NA (PORCINE) 5,000 UNITS/ML 1ML VIAL SQ SCH ×3 (06:15→22:22)
[2018-06-18 06:52] LABS: BASO % 0.3 % (0-2.0); HEMATOCRIT 38.8 % (32.4-45.2); HEMOGLOBIN 12.8 GM/dL (10.7-15.3); LYMPH % 21.8 % (8-40); MCH 27.6 pg (25.7-33.7); MCHC 32.9 g/dl (32.0-36.0); MEAN PLT VOLUME 8.3 fl (7.5-11.1); MONO % 10.8 % (3.8-10.2); NEUT % 64.1 % (42.8-82.8); PLATELET COUNT 185 K/MM3 (134-434); RBC 4.62 M/mm3 (3.60-5.2); RDW 13.4 % (11.6-15.6); WHITE BLOOD COUNT 7.3 K/mm3 (4.0-10.0)
[2018-06-18 07:10] LABS: ANION GAP 8 MMOL/L (8-16); BLOOD UREA NITROGEN 8 mg/dL (7-18); CALCIUM 8.3 mg/dL (8.5-10.1); CHLORIDE 102 mmol/L (98-107); CO2 30 mmol/L (21-32); CREATININE 0.6 mg/dL (0.55-1.3); GLUCOSE,RANDOM 107 mg/dL (74-106); MAGNESIUM 2.2 mg/dL (1.8-2.4); PHOSPHOROUS 2.4 mg/dL (2.5-4.9); POTASSIUM 3.7 mmol/L (3.5-5.1); SODIUM 140 mmol/L (136-145)
[2018-06-18] MEDS ORDERED: KCL 10 MEQ IVPB 10 MEQ/100 ML INFUS.BAG IVPB SCH (09:15)
--- NOTE | 2018-06-18 09:37 | PN ---
Progress Note (short form) - Note Progress Note: Dr. Kelly to document today. Patient does not have abdominal pain but still having significant NG drainage and no BM yet. CTA reviewed. In NSR now but doesn't want future oral anticoagulation in spite of possible risks including CVA. Having Echocardiogram.
--- NOTE | 2018-06-18 09:43 | PN ---
Progress Note, Physician Chief Complaint: vomiting History of Present Illness: NGT still in place. no palpitations, cp, sob, syncope - Current Medication List Current Medications: Active Medications Acetaminophen (Ofirmev Injection -) 1,000 mg IVPB Q6H PRN PRN Reason: PAIN Last Admin: 06/16/18 14:10 Dose: 1,000 mg Heparin Sodium (Porcine) (Heparin -) 5,000 unit SQ TID ABDIRIZAK Last Admin: 06/18/18 06:15 Dose: 5,000 unit Dextrose/Sodium Chloride (D5-1/2ns+40 Meq Kcl -) 40 meq in 1,000 mls @ 75 mls/ hr IV ASDIR ABDIRIZAK Last Admin: 06/17/18 08:34 Dose: 75 mls/hr Metoprolol Tartrate (Lopressor Injection -) 5 mg IVPUSH Q4H PRN PRN Reason: HYPERTENSION Ondansetron HCl (Zofran Injection) 4 mg IVPUSH Q6H PRN PRN Reason: NAUSEA - Objective Vital Signs: Vital Signs Temperature 98.3 F 06/18/18 05:00 Pulse Rate 80 06/18/18 05:00 Respiratory Rate 20 06/18/18 05:00 Blood Pressure 131/67 06/18/18 05:00 O2 Sat by Pulse Oximetry (%) 95 06/17/18 20:28 Constitutional: Yes: Well Nourished, No Distress, Calm Cardiovascular: Yes: Regular Rate and Rhythm, S1, S2. No: Gallop, Murmur Respiratory: Yes: Regular, CTA Bilaterally. No: Accessory Muscle Use, Rales, Wheezes Extremities: No: Cold Edema: No Neurological: Yes: Alert, Oriented Psychiatric: No: Agitated Labs: CBC, BMP 06/18/18 05:30 06/18/18 05:30 INR, PTT INR 1.01 (0.82-1.09) 06/16/18 09:20 Assessment/Plan cxr: clear lungs ecgs: afib with rvr. repeat ecg sr, nl intervals, no ischemic changes. tele: sinus with PVCs a/p: 82 f hx pafib, htn, here with abd pain, vomiting. sbo: -per gi, surgery -conservative management planned at present htn: -npo. - iv lopressor prn as doing pafib: -presented in rvr, started dilt gtt-->converted to sr -remains in sinus, metopr on hold (NPO) -resume home metoprolol once taking PO -chadsvasc 4--warrants AC. refused heparin gtt yesterday (per RN report to dr thornton). defer for now, remains in sinus. discuss NOAC once surgery clearly off the table -check echo -cont tele
--- NOTE | 2018-06-18 10:12 | PN ---
Progress Note, Physician Chief Complaint: Pt lying in bed in no acute distress. Reports feeling well, feels she passed a little flatus this am, no bm. Denies any chest pain, sob, n/v/d, or abd pain. - Current Medication List Current Medications: Active Medications Acetaminophen (Ofirmev Injection -) 1,000 mg IVPB Q6H PRN PRN Reason: PAIN Last Admin: 06/16/18 14:10 Dose: 1,000 mg Heparin Sodium (Porcine) (Heparin -) 5,000 unit SQ TID [facility] Last Admin: 06/18/18 06:15 Dose: 5,000 unit Dextrose/Sodium Chloride (D5-1/2ns+40 Meq Kcl -) 40 meq in 1,000 mls @ 75 mls/ hr IV ASDIR [facility] Last Admin: 06/17/18 08:34 Dose: 75 mls/hr Metoprolol Tartrate (Lopressor Injection -) 5 mg IVPUSH Q4H PRN PRN Reason: HYPERTENSION Ondansetron HCl (Zofran Injection) 4 mg IVPUSH Q6H PRN PRN Reason: NAUSEA - Objective Vital Signs: Vital Signs Temperature 98 F 06/18/18 09:00 Pulse Rate 78 06/18/18 09:00 Respiratory Rate 18 06/18/18 09:00 Blood Pressure 134/76 06/18/18 09:00 O2 Sat by Pulse Oximetry (%) 95 06/17/18 20:28 Constitutional: Yes: Well Nourished, No Distress Respiratory: Yes: WNL, Regular, CTA Bilaterally. No: SOB, Tachypnea, Wheezes Gastrointestinal: Yes: Soft, Abdomen, Obese. No: Distention, Tenderness, Tenderness, Rebound, Vomiting Genitourinary: Yes: WNL Extremities: Yes: WNL Edema: No Neurological: Yes: WNL, Alert, Oriented Psychiatric: Yes: WNL, Alert, Oriented Labs: CBC, BMP 06/18/18 05:30 06/18/18 05:30 INR, PTT INR 1.01 (0.82-1.09) 06/16/18 09:20 - ....Imaging X-ray: Pending Assessment/Plan (1) SBO (small bowel obstruction) Assessment/Plan: conservative management per surgery abd soft, non tender, - bm/flatus ambulation as tolerated NGT NPO, IVF abd/pelvis kub ordered Code(s): K56.609 - UNSP INTESTNL OBST, UNSP TO PARTIAL VERSUS COMPLETE OBST (2) Paroxysmal atrial fibrillation with rapid ventricular response Assessment/Plan: resolved continue prn lopressor pt refuses heparin gtt or po AC despite stroke risk cardiology following Code(s): I48.0 - PAROXYSMAL ATRIAL FIBRILLATION (3) Dehydration Assessment/Plan: improved Code(s): E86.0 - DEHYDRATION (4) Lactic acid acidosis Assessment/Plan: resolved Code(s): E87.2 - ACIDOSIS (5) Leukocytosis Assessment/Plan: resolved Code(s): D72.829 - ELEVATED WHITE BLOOD CELL COUNT, UNSPECIFIED (6) HTN (hypertension) Assessment/Plan: controlled Code(s): I10 - ESSENTIAL (PRIMARY) HYPERTENSION Qualifiers: Hypertension type: essential hypertension Qualified Code(s): I10 - Essential (primary) hypertension (7) Hypokalemia Assessment/Plan: improved continue ivf w/ 40meq potassium Code(s): E87.6 - HYPOKALEMIA
[2018-06-18] MEDS ORDERED: BENZOCAINE/MENTH/CETYLPYRD CL 1 EACH LOZENGE MM PRN (11:39)
--- NOTE | 2018-06-18 12:11 | ECHO ---
Name: MAURISIO SIMON Exam:Adult Echocardiogram Study Date: 06/18/2018 09:26 AM Age: 82 yrs Reason For Study: AFIB Height: 63 in Weight: 160 lb BSA: 1.8 m2 MMode/2D Measurements & Calculations IVSd: 1.1 cm Ao root diam: 3.0 cm LVIDd: 3.9 cm LA dimension: 3.0 cm LVIDs: 2.6 cm LVPWd: 1.0 cm LVPWs: 1.2 cm EDV(Teich): 65.1 ml ESV(Teich): 24.1 ml Doppler Measurements & Calculations MV E max jason: 48.4 cm/sec Ao V2 max: 170.2 cm/sec MV A max jason: 58.7 cm/sec Ao max P.7 mmHg MV E/A: 0.82 AI P1/2t: 539.3 msec MV dec time: 0.15 sec AI max jason: 361.0 cm/sec LV V1 max P.5 mmHg AI max P.6 mmHg LV V1 max: 106.1 cm/sec AI dec slope: 196.1 cm/sec2 TR max jason: 231.6 cm/sec PA V2 max: 105.9 cm/sec TR max P.3 mmHg PA max P.5 mmHg Med Peak E' Jason: 5.3 cm/sec Med E/e': 9.2 Lat Peak E' Jason: 7.3 cm/sec Lat E/e': 6.6 Procedure A complete two-dimensional transthoracic echocardiogram was performed (2D, M-mode, Doppler and color flow Doppler). The study was technically good with many images being of high quality. Left Ventricle The left ventricle is normal in size. Left ventricular systolic function is normal. Ejection Fraction = 60- 65%. TDI reveals mildly impaired relaxation with normal filling pressure (E/E' 9). No regional wall m otion abnormalities noted. Right Ventricle The right ventricle is normal size. The right ventricular systolic function is normal. Atria The left atrial size is normal. Right atrial size is normal. Mitral Valve There is mild mitral annular calcification. There is mild mitral regurgitation. Tricuspid Valve The tricuspid valve is normal in structure and function. There is mild tricuspid regurgitation. Pulmo nary artery systolic pressure is at least 34 mmHg assuming RA pressure of 3 mmHg. Aortic Valve There is mild aortic sclerosis.;. Mild aortic regurgitation. Pulmonic Valve The pulmonic valve is not well visualized. Mild pulmonic valvular regurgitation. Great Vessels The aortic root is normal size. Pericardium/Pleura There is no pericardial effusion. Interpretation Summary The left ventricle is normal in size. Left ventricular systolic function is normal. No regional wall motion abnormalities noted. Ejection Fraction = 60-65%. TDI reveals mildly impaired relaxation with normal filling pressure (E/E' 9) The right ventricular systolic function is normal. There is mild mitral annular calcification. There is mild mitral regurgitation. There is mild tricuspid regurgitation. Pulmonary artery systolic pressure is at least 34 mmHg assuming RA pressure of 3 mmHg There is mild aortic sclerosis. Mild aortic regurgitation. Mild pulmonic valvular regurgitation. There is no pericardial effusion. Previous study is not available for comparison Colin Benoit MD 06/18/2018 12:11 PM
--- NOTE | 2018-06-18 12:21 | PN ---
Progress Note (short form) - Note Progress Note: oob in chair no abdominal pain still with NGT, +drainage minimal flatus, no bm Vital Signs Period Temp Pulse Resp BP Sys/Howard Pulse Ox Last 24 Hr 98 F-98.6 F 73-96 18-20 121-143/60-85 94-95 cor-rrr lungs clear abd soft,nt ext no edema CBC, BMP 06/18/18 05:30 06/18/18 05:30 Microbiology 06/16/18 16:45 Blood - Peripheral Venous Blood Culture - Preliminary NO GROWTH OBTAINED AFTER 24 HOURS, INCUBATION TO CONTINUE FOR 4 DAYS. 06/16/18 17:05 Blood - Peripheral Venous Blood Culture - Preliminary NO GROWTH OBTAINED AFTER 24 HOURS, INCUBATION TO CONTINUE FOR 4 DAYS. Current Medications Acetaminophen (Ofirmev Injection -) 1,000 mg IVPB Q6H PRN PRN Reason: PAIN Last Admin: 06/16/18 14:10 Dose: 1,000 mg Benzocaine/Menthol (Cepacol Lozenge -) 1 each MM PRN PRN PRN Reason: SORE THROAT Heparin Sodium (Porcine) (Heparin -) 5,000 unit SQ TID [facility] Last Admin: 06/18/18 06:15 Dose: 5,000 unit Dextrose/Sodium Chloride (D5-1/2ns+40 Meq Kcl -) 40 meq in 1,000 mls @ 75 mls/ hr IV ASDIR [facility] Last Admin: 06/17/18 08:34 Dose: 75 mls/hr Metoprolol Tartrate (Lopressor Injection -) 5 mg IVPUSH Q4H PRN PRN Reason: HYPERTENSION Ondansetron HCl (Zofran Injection) 4 mg IVPUSH Q6H PRN PRN Reason: NAUSEA a/p SBO- management per surgery leukocytosis and lactic acidosis have resolved with hydration cultures negative please call back if needed Problem List - Problems (1) SBO (small bowel obstruction) Code(s): K56.609 - UNSP INTESTNL OBST, UNSP TO PARTIAL VERSUS COMPLETE OBST (2) Leukocytosis Code(s): D72.829 - ELEVATED WHITE BLOOD CELL COUNT, UNSPECIFIED (3) Lactic acid acidosis Code(s): E87.2 - ACIDOSIS
[2018-06-18] MEDS: D5-1/2NS+40 MEQ KCL - 40 MEQ/1,000 ML INFUS.BAG IV SCH (12:27)
--- NOTE | 2018-06-18 12:55 | PN ---
Progress Note, Physician History of Present Illness: Pt with small bowel obstruction secondary to adhesions, after multiple abdominal surgeries in past. NGT in place with 700ml out last shift. Pt using some lozenges for throat discomfort. Seen and examined sitting up in chair. She reports feeling better, no pain, and she has passed some gas. Wanted to see me before getting AXR done. - Current Medication List Current Medications: Active Medications Acetaminophen (Ofirmev Injection -) 1,000 mg IVPB Q6H PRN PRN Reason: PAIN Last Admin: 06/16/18 14:10 Dose: 1,000 mg Benzocaine/Menthol (Cepacol Lozenge -) 1 each MM PRN PRN PRN Reason: SORE THROAT Heparin Sodium (Porcine) (Heparin -) 5,000 unit SQ TID [facility] Last Admin: 06/18/18 06:15 Dose: 5,000 unit Dextrose/Sodium Chloride (D5-1/2ns+40 Meq Kcl -) 40 meq in 1,000 mls @ 75 mls/ hr IV ASDIR [facility] Last Admin: 06/18/18 12:27 Dose: 75 mls/hr Metoprolol Tartrate (Lopressor Injection -) 5 mg IVPUSH Q4H PRN PRN Reason: HYPERTENSION Ondansetron HCl (Zofran Injection) 4 mg IVPUSH Q6H PRN PRN Reason: NAUSEA - Objective Vital Signs: Vital Signs Temperature 98 F 06/18/18 09:00 Pulse Rate 78 06/18/18 09:00 Respiratory Rate 18 06/18/18 09:00 Blood Pressure 134/76 06/18/18 09:00 O2 Sat by Pulse Oximetry (%) 94 L 06/18/18 09:00 Constitutional: Yes: Well Nourished, No Distress, Calm Eyes: Yes: Conjunctiva Clear, EOM Intact HENT: Yes: Atraumatic, Normocephalic, Other (NGT in place, johnson changed to keep secure) Gastrointestinal: Yes: Soft, Abdomen, Obese. No: Tenderness, Tenderness, Epigastrium Extremities: No: Cool, Cyanosis Integumentary: No: Jaundice, Rash Neurological: Yes: Alert, Oriented Labs: CBC, BMP 06/18/18 05:30 06/18/18 05:30 Mg 2.2, Phos 2.4 (low) - ....Imaging X-ray: Pending (will get AXR after PO contrast via NGT) Problem List - Problems (1) Small bowel obstruction due to adhesions Assessment/Plan: continue NPO/IVF; NGT to be clamped for enteral contrast administration ok for cepacol lozenges K improved, replete lytes prn serial exams nonnarcotic pain meds only prn - if pain requires narcotics, she should be reevaluated by MD will get AXR after PO contrast down NGT encourage OOB/ambulation monitor for bowel function - anticipate loose stools from contrast eventually Code(s): K56.50 - INTESTNL ADHESIONS, UNSP TO PARTIAL VERSUS COMPLETE OBST (2) HTN (hypertension) Code(s): I10 - ESSENTIAL (PRIMARY) HYPERTENSION Qualifiers: Hypertension type: essential hypertension Qualified Code(s): I10 - Essential (primary) hypertension (3) HLD (hyperlipidemia) Code(s): E78.5 - HYPERLIPIDEMIA, UNSPECIFIED Qualifiers: Hyperlipidemia type: unspecified Qualified Code(s): E78.5 - Hyperlipidemia , unspecified (4) Paroxysmal atrial fibrillation with rapid ventricular response Assessment/Plan: seen by cardiology in sinus rhythm echo results noted - normal EF, mild diastolic dysfunction defer mgmt to cardio/med pt has declined future anticoagulation per chart notes Code(s): I48.0 - PAROXYSMAL ATRIAL FIBRILLATION
[2018-06-19] MEDS ORDERED: PT OWN MED DRAWER 7, Y5N ONE (04:00)
[2018-06-19] MEDS: HEPARIN NA (PORCINE) 5,000 UNITS/ML 1ML VIAL SQ SCH ×3 (06:25→21:13)
[2018-06-19] MEDS: D5-1/2NS+40 MEQ KCL - 40 MEQ/1,000 ML INFUS.BAG IV SCH (07:36)
[2018-06-19 07:47] LABS: BASO % 0.5 % (0-2.0); EOS % 3.1 % (0-4.5); HEMATOCRIT 37.1 % (32.4-45.2); HEMOGLOBIN 12.4 GM/dL (10.7-15.3); LYMPH % 22.2 % (8-40); MCH 27.8 pg (25.7-33.7); MCHC 33.3 g/dl (32.0-36.0); MEAN CELL VOLUME 83.5 fl (80-96); MEAN PLT VOLUME 8.4 fl (7.5-11.1); MONO % 11.2 % (3.8-10.2); PLATELET COUNT 198 K/MM3 (134-434); RBC 4.44 M/mm3 (3.60-5.2); RDW 13.6 % (11.6-15.6); WHITE BLOOD COUNT 6.9 K/mm3 (4.0-10.0)
[2018-06-19 08:11] LABS: ANION GAP 10 MMOL/L (8-16); BLOOD UREA NITROGEN 8 mg/dL (7-18); CALCIUM 8.2 mg/dL (8.5-10.1); CHLORIDE 102 mmol/L (98-107); CO2 26 mmol/L (21-32); CREATININE 0.6 mg/dL (0.55-1.3); GLUCOSE,RANDOM 106 mg/dL (74-106); MAGNESIUM 2.2 mg/dL (1.8-2.4); POTASSIUM 3.8 mmol/L (3.5-5.1); SODIUM 138 mmol/L (136-145)
--- NOTE | 2018-06-19 09:56 | PN ---
Progress Note (short form) - Note Progress Note: Chief Complaint: vomiting History of Present Illness: feels better, no abd pain, nausea. no chest pain, palps, dizzy, dypnea, edema Current Medications Acetaminophen (Ofirmev Injection -) 1,000 mg IVPB Q6H PRN PRN Reason: PAIN Last Admin: 06/16/18 14:10 Dose: 1,000 mg Benzocaine/Menthol (Cepacol Lozenge -) 1 each MM PRN PRN PRN Reason: SORE THROAT Heparin Sodium (Porcine) (Heparin -) 5,000 unit SQ TID [facility] Last Admin: 06/19/18 06:25 Dose: 5,000 unit Dextrose/Sodium Chloride (D5-1/2ns+40 Meq Kcl -) 40 meq in 1,000 mls @ 75 mls/ hr IV ASDIR [facility] Last Admin: 06/19/18 07:36 Dose: 75 mls/hr Metoprolol Tartrate (Lopressor Injection -) 5 mg IVPUSH Q4H PRN PRN Reason: HYPERTENSION Ondansetron HCl (Zofran Injection) 4 mg IVPUSH Q6H PRN PRN Reason: NAUSEA - Objective Vital Signs Period Temp Pulse Resp BP Sys/Howard Pulse Ox Last 24 Hr 98.2 F-98.7 F 86-92 18-20 127-149/67-89 95-95 Constitutional: Yes: Well Nourished, No Distress, Calm Cardiovascular: Yes: Regular Rate and Rhythm, S1, S2. No: Gallop, Murmur Respiratory: Yes: Regular, CTA Bilaterally. No: Accessory Muscle Use, Rales, Wheezes Extremities: No: Cold Edema: No Neurological: Yes: Alert, Oriented Psychiatric: No: Agitated Assessment/Plan cxr: clear lungs ecgs: afib with rvr. repeat ecg sr, nl intervals, no ischemic changes. echo 06/2018 nl LV size/function, impaired relaxation with nl filling pressures , mil MR, mild TR, PASP at least 34 mmHg, mild AR tele: sinus with PVCs a/p: 82 f hx pafib, htn, here with abd pain, vomiting. sbo: -per gi, surgery -conservative management planned at present, advancing diet today htn: - now taking PO, restart home meds pafib: -presented in rvr, started dilt gtt-->converted to sr -remains in sinus, restarted metoprolol -chadsvasc 4--warrants AC. refused heparin gtt on admissoin (per RN report to dr thornton) -discussed AC with patient, she will consider eliquis. if agreeable will start on discharge
--- NOTE | 2018-06-19 10:31 | PN ---
Progress Note, Physician Chief Complaint: Pt sitting in chair in no acute distress. Having bms, loose from contrast. Pt also considering oral AC upon d/c. Denies any chest pain, sob, n/v/d, or abd pain. - Current Medication List Current Medications: Active Medications Acetaminophen (Ofirmev Injection -) 1,000 mg IVPB Q6H PRN PRN Reason: PAIN Last Admin: 06/16/18 14:10 Dose: 1,000 mg Benzocaine/Menthol (Cepacol Lozenge -) 1 each MM PRN PRN PRN Reason: SORE THROAT Heparin Sodium (Porcine) (Heparin -) 5,000 unit SQ TID [facility] Last Admin: 06/19/18 06:25 Dose: 5,000 unit Dextrose/Sodium Chloride (D5-1/2ns+40 Meq Kcl -) 40 meq in 1,000 mls @ 75 mls/ hr IV ASDIR [facility] Last Admin: 06/19/18 07:36 Dose: 75 mls/hr Metoprolol Succinate (Toprol Xl -) 50 mg PO DAILY [facility] Metoprolol Tartrate (Lopressor Injection -) 5 mg IVPUSH Q4H PRN PRN Reason: HYPERTENSION Ondansetron HCl (Zofran Injection) 4 mg IVPUSH Q6H PRN PRN Reason: NAUSEA - Objective Vital Signs: Vital Signs Temperature 98.5 F 06/19/18 09:52 Pulse Rate 78 06/19/18 09:52 Respiratory Rate 18 06/19/18 09:52 Blood Pressure 134/68 06/19/18 09:52 O2 Sat by Pulse Oximetry (%) 95 06/19/18 09:00 Constitutional: Yes: Well Nourished, No Distress Cardiovascular: Yes: Regular Rate and Rhythm. No: Pulse Irregular Respiratory: Yes: WNL, Regular, CTA Bilaterally. No: Accessory Muscle Use, SOB , Tachypnea, Wheezes Gastrointestinal: Yes: Soft, Abdomen, Obese, Hypoactive Bowel Sounds. No: Distention, Tenderness, Vomiting Genitourinary: Yes: WNL Musculoskeletal: Yes: WNL Edema: No Neurological: Yes: WNL, Alert, Oriented Psychiatric: Yes: WNL, Alert, Oriented Labs: CBC, BMP 06/19/18 05:30 06/19/18 05:30 INR, PTT INR 1.01 (0.82-1.09) 06/16/18 09:20 Assessment/Plan (1) SBO (small bowel obstruction) Assessment/Plan: improving +bm ambulation as tolerated NGT removed clear liquids diet surgery following Code(s): K56.609 - UNSP INTESTNL OBST, UNSP TO PARTIAL VERSUS COMPLETE OBST (2) Paroxysmal atrial fibrillation with rapid ventricular response Assessment/Plan: resolved metoprolol restarted pt refuses heparin gtt or po AC despite stroke risk, reconsidering po AC upon d/ c cardiology following Code(s): I48.0 - PAROXYSMAL ATRIAL FIBRILLATION (3) Dehydration Assessment/Plan: improved Code(s): E86.0 - DEHYDRATION (4) Lactic acid acidosis Assessment/Plan: resolved Code(s): E87.2 - ACIDOSIS (5) Leukocytosis Assessment/Plan: resolved Code(s): D72.829 - ELEVATED WHITE BLOOD CELL COUNT, UNSPECIFIED (6) HTN (hypertension) Assessment/Plan: controlled procardia restarted Code(s): I10 - ESSENTIAL (PRIMARY) HYPERTENSION Qualifiers: Hypertension type: essential hypertension Qualified Code(s): I10 - Essential (primary) hypertension (7) Hypokalemia Assessment/Plan: improved continue ivf w/ 40meq potassium Code(s): E87.6 - HYPOKALEMIA
--- NOTE | 2018-06-19 10:37 | PN ---
Progress Note (short form) - Note Progress Note: Hospitalist will document today. Contrast has passed through the small bowel into the colon so there is improvement in the SBO. Surgeon has ordered clear liquids which the patient should tolerate. The patient is willing to go on Eliquis post hospital as she understands the significance of the paroxysmal Atrial Fibrillation. BP134/68 but she will need to resume BP meds soon.
--- NOTE | 2018-06-19 10:46 | PN ---
Progress Note, Physician History of Present Illness: Pt with small bowel obstruction secondary to adhesions, after multiple abdominal surgeries in past. NGT removed last night after AXR showed oral contrast in colon and distal SB. Seen and examined sitting up in chair. She reports feeling better, no pain, and she has passed some diarrhea from contrast. - Current Medication List Current Medications: Active Medications Benzocaine/Menthol (Cepacol Lozenge -) 1 each MM PRN PRN PRN Reason: SORE THROAT Heparin Sodium (Porcine) (Heparin -) 5,000 unit SQ TID [facility] Last Admin: 06/19/18 06:25 Dose: 5,000 unit Dextrose/Sodium Chloride (D5-1/2ns+40 Meq Kcl -) 40 meq in 1,000 mls @ 75 mls/ hr IV ASDIR [facility] Last Admin: 06/19/18 07:36 Dose: 75 mls/hr Metoprolol Succinate (Toprol Xl -) 50 mg PO DAILY [facility] Last Admin: 06/19/18 10:35 Dose: 50 mg Metoprolol Tartrate (Lopressor Injection -) 5 mg IVPUSH Q4H PRN PRN Reason: HYPERTENSION Ondansetron HCl (Zofran Injection) 4 mg IVPUSH Q6H PRN PRN Reason: NAUSEA - Objective Vital Signs: Vital Signs Temperature 98.5 F 06/19/18 09:52 Pulse Rate 78 06/19/18 09:52 Respiratory Rate 18 06/19/18 09:52 Blood Pressure 134/68 06/19/18 09:52 O2 Sat by Pulse Oximetry (%) 95 06/19/18 09:00 Constitutional: Yes: Well Nourished, No Distress, Calm Eyes: Yes: Conjunctiva Clear, EOM Intact HENT: Yes: Atraumatic, Normocephalic Cardiovascular: Yes: Regular Rate and Rhythm Gastrointestinal: Yes: Normal Bowel Sounds, Soft, Abdomen, Obese. No: Tenderness, Tenderness, Epigastrium Musculoskeletal: No: Joint Stiffness, Joint Swelling Extremities: No: Cool, Cyanosis Integumentary: No: Jaundice, Rash Neurological: Yes: Alert, Oriented Labs: CBC, BMP 06/19/18 05:30 06/19/18 05:30 - ....Imaging X-ray: Report Reviewed, Image Reviewed (images personally reviewed last night - enteral contrast in distal SB and colon, no significantly dilated loops) Problem List - Problems (1) Small bowel obstruction due to adhesions Assessment/Plan: appears resolved will start clears and advance as tolerated, pt requests no dairy encourage OOB/ambulation pt having loose stools from contrast stop fluids after bayron lunch clears if bayron diet for breakfast in am, can probably d/c home tomorrow discussed with Dr. Sterling Thank you for the opportunity to participate in the care of this patient. Code(s): K56.50 - INTESTNL ADHESIONS, UNSP TO PARTIAL VERSUS COMPLETE OBST (2) HTN (hypertension) Assessment/Plan: resume home metoprolol - defer other meds to medicine Code(s): I10 - ESSENTIAL (PRIMARY) HYPERTENSION Qualifiers: Qualified Code(s): I10 - Essential (primary) hypertension (3) HLD (hyperlipidemia) Code(s): E78.5 - HYPERLIPIDEMIA, UNSPECIFIED Qualifiers: Qualified Code(s): E78.5 - Hyperlipidemia, unspecified (4) Paroxysmal atrial fibrillation with rapid ventricular response Assessment/Plan: seen by cardiology in sinus rhythm echo results noted - normal EF, mild diastolic dysfunction defer mgmt to cardio/med pt has declined future anticoagulation per chart notes Code(s): I48.0 - PAROXYSMAL ATRIAL FIBRILLATION
[2018-06-20 06:37] LABS: BASO % 0.8 % (0-2.0); EOS % 5.7 % (0-4.5); HEMATOCRIT 39.3 % (32.4-45.2); LYMPH % 27.6 % (8-40); MCHC 33.1 g/dl (32.0-36.0); MEAN CELL VOLUME 84.7 fl (80-96); MEAN PLT VOLUME 8.4 fl (7.5-11.1); MONO % 13.6 % (3.8-10.2); NEUT % 52.3 % (42.8-82.8); PLATELET COUNT 220 K/MM3 (134-434); RBC 4.63 M/mm3 (3.60-5.2); RDW 14.3 % (11.6-15.6); WHITE BLOOD COUNT 5.1 K/mm3 (4.0-10.0)
[2018-06-20] MEDS: HEPARIN NA (PORCINE) 5,000 UNITS/ML 1ML VIAL SQ SCH ×3 (06:46→22:15)
[2018-06-20 07:13] LABS: ANION GAP 9 MMOL/L (8-16); BLOOD UREA NITROGEN 10 mg/dL (7-18); CALCIUM 8.6 mg/dL (8.5-10.1); CHLORIDE 104 mmol/L (98-107); CO2 26 mmol/L (21-32); CREATININE 0.6 mg/dL (0.55-1.3); GLUCOSE,RANDOM 100 mg/dL (74-106); MAGNESIUM 2.2 mg/dL (1.8-2.4); PHOSPHOROUS 3.6 mg/dL (2.5-4.9); POTASSIUM 3.9 mmol/L (3.5-5.1); SODIUM 139 mmol/L (136-145)
[2018-06-20] MEDS ORDERED: SIMETHICONE 80 MG TAB.CHEW (FP) PO PRN (08:33)
--- NOTE | 2018-06-20 08:33 | PN ---
Progress Note (short form) - Note Progress Note: Hospitalist/POLE TESTER Butch will document today. Patient having multiple bouts of diarrhea light brown in colon and diaphoresis since yesterday afternoon and during the night. Tolerating full liquid diet but a lot of abdominal gas. Slightly unsteady on walking to the bathroom; PT note seen. Rec: Mylicon; C.Diff study Would not recommend D/C until this is addressed.
--- NOTE | 2018-06-20 09:10 | PN ---
Progress Note, Physician Chief Complaint: Pt sitting in chair in no acute distress. Having very loose bms, feeling weaker today. tolerated full liquids. Denies any chest pain, sob, n/v/d, or abd pain. - Current Medication List Current Medications: Active Medications Benzocaine/Menthol (Cepacol Lozenge -) 1 each MM PRN PRN PRN Reason: SORE THROAT Heparin Sodium (Porcine) (Heparin -) 5,000 unit SQ TID [facility] Last Admin: 06/20/18 06:46 Dose: 5,000 unit Metoprolol Succinate (Toprol Xl -) 50 mg PO DAILY [facility] Last Admin: 06/19/18 10:35 Dose: 50 mg Metoprolol Tartrate (Lopressor Injection -) 5 mg IVPUSH Q4H PRN PRN Reason: HYPERTENSION Nifedipine (Procardia Xl -) 60 mg PO DAILY [facility] Ondansetron HCl (Zofran Injection) 4 mg IVPUSH Q6H PRN PRN Reason: NAUSEA Simethicone (Mylicon -) 80 mg PO QID PRN PRN Reason: GAS - Objective Vital Signs: Vital Signs Temperature 97.9 F 06/20/18 06:00 Pulse Rate 76 06/20/18 06:00 Respiratory Rate 20 06/20/18 06:00 Blood Pressure 137/84 06/20/18 06:00 O2 Sat by Pulse Oximetry (%) 95 06/19/18 21:00 Constitutional: Yes: Well Nourished, No Distress, Calm Cardiovascular: Yes: Regular Rate and Rhythm. No: Murmur Respiratory: Yes: WNL, Regular, CTA Bilaterally. No: Accessory Muscle Use, SOB , Tachypnea, Wheezes Gastrointestinal: Yes: WNL, Normal Bowel Sounds, Soft. No: Distention, Tenderness, Vomiting Genitourinary: Yes: WNL Extremities: Yes: WNL Edema: No Neurological: Yes: WNL, Alert, Oriented Psychiatric: Yes: WNL, Alert, Oriented Labs: CBC, BMP 06/20/18 05:30 06/20/18 05:30 INR, PTT INR 1.01 (0.82-1.09) 06/16/18 09:20 Assessment/Plan (1) SBO (small bowel obstruction) Assessment/Plan: resolved tolerated full liquids diet advanced to regular diet, monitor surgery following Code(s): K56.609 - UNSP INTESTNL OBST, UNSP TO PARTIAL VERSUS COMPLETE OBST (2) Paroxysmal atrial fibrillation with rapid ventricular response Assessment/Plan: resolved continue metoprolol pt refuses po AC despite stroke risk, reconsidering po AC upon d/c cardiology following Code(s): I48.0 - PAROXYSMAL ATRIAL FIBRILLATION (3) Dehydration Assessment/Plan: improved Code(s): E86.0 - DEHYDRATION (4) Lactic acid acidosis Assessment/Plan: resolved Code(s): E87.2 - ACIDOSIS (5) Leukocytosis Assessment/Plan: resolved Code(s): D72.829 - ELEVATED WHITE BLOOD CELL COUNT, UNSPECIFIED (6) HTN (hypertension) Assessment/Plan: controlled procardia restarted Code(s): I10 - ESSENTIAL (PRIMARY) HYPERTENSION Qualifiers: Hypertension type: essential hypertension Qualified Code(s): I10 - Essential (primary) hypertension (7) Hypokalemia Assessment/Plan: improved Code(s): E87.6 - HYPOKALEMIA (8) Diarrhea Assessment/Plan: suspect 2/2 contrast +generalized weakness cdiff test pending monitor Code(s): R19.7 - DIARRHEA, UNSPECIFIED Qualifiers: Diarrhea type: unspecified type Qualified Code(s): R19.7 - Diarrhea, unspecified
--- NOTE | 2018-06-20 09:28 | PN ---
Progress Note (short form) - Note Progress Note: Chief Complaint: vomiting History of Present Illness: diarrhea this AM, getting better. no chest pain, palps, dizzy, dypnea, edema Current Medications Benzocaine/Menthol (Cepacol Lozenge -) 1 each MM PRN PRN PRN Reason: SORE THROAT Heparin Sodium (Porcine) (Heparin -) 5,000 unit SQ TID [facility] Last Admin: 06/20/18 06:46 Dose: 5,000 unit Metoprolol Succinate (Toprol Xl -) 50 mg PO DAILY [facility] Last Admin: 06/19/18 10:35 Dose: 50 mg Metoprolol Tartrate (Lopressor Injection -) 5 mg IVPUSH Q4H PRN PRN Reason: HYPERTENSION Nifedipine (Procardia Xl -) 60 mg PO DAILY [facility] Ondansetron HCl (Zofran Injection) 4 mg IVPUSH Q6H PRN PRN Reason: NAUSEA Simethicone (Mylicon -) 80 mg PO QID PRN PRN Reason: GAS - Objective Vital Signs Period Temp Pulse Resp BP Sys/Howard Pulse Ox Last 24 Hr 97.9 F-98.5 F 76-85 18-20 124-179/68-91 95 Constitutional: Yes: Well Nourished, No Distress, Calm Cardiovascular: Yes: Regular Rate and Rhythm, S1, S2. No: Gallop, Murmur Respiratory: Yes: Regular, CTA Bilaterally. No: Accessory Muscle Use, Rales, Wheezes Extremities: No: Cold Edema: No Neurological: Yes: Alert, Oriented Psychiatric: No: Agitated Assessment/Plan cxr: clear lungs ecgs: afib with rvr. repeat ecg sr, nl intervals, no ischemic changes. echo 06/2018 nl LV size/function, impaired relaxation with nl filling pressures , mil MR, mild TR, PASP at least 34 mmHg, mild AR tele: sinus with PVCs a/p: 82 f hx pafib, htn, here with abd pain, vomiting. sbo: -per gi, surgery -conservative management planned at present htn: - stable on home meds pafib: -presented in rvr, started dilt gtt-->converted to sr -remains in sinus, restarted metoprolol -chadsvasc 4--warrants AC. refused heparin gtt on admissoin (per RN report to dr thornton) -discussed recommendation for AC again with patient, she is thinking about eliquis still. if agreeable will start on discharge.
[2018-06-20] MEDS: NIFEdipine E.R 60 MG TABLET (UD) PO SCH (09:46)
[2018-06-20] MEDS ORDERED: PT OWN MED DRAWER 7, Y5N ONE (14:26)
[2018-06-21] MEDS: HEPARIN NA (PORCINE) 5,000 UNITS/ML 1ML VIAL SQ SCH (06:23)
[2018-06-21 07:35] LABS: ANION GAP 9 MMOL/L (8-16); BLOOD UREA NITROGEN 13 mg/dL (7-18); CALCIUM 9.1 mg/dL (8.5-10.1); CHLORIDE 103 mmol/L (98-107); CO2 26 mmol/L (21-32); CREATININE 0.7 mg/dL (0.55-1.3); GLUCOSE,RANDOM 88 mg/dL (74-106); SODIUM 138 mmol/L (136-145)
--- NOTE | 2018-06-21 08:19 | DS ---
Physical Examination Vital Signs: Vital Signs Temperature 98.2 F 06/21/18 06:00 Pulse Rate 80 06/21/18 06:00 Respiratory Rate 18 06/21/18 06:00 Blood Pressure 137/77 06/21/18 06:00 O2 Sat by Pulse Oximetry (%) 95 06/20/18 21:00 Constitutional: Yes: Well Nourished, No Distress, Calm Cardiovascular: Yes: Regular Rate and Rhythm. No: Murmur Respiratory: Yes: WNL, Regular, CTA Bilaterally. No: Accessory Muscle Use, SOB , Tachypnea, Wheezes Gastrointestinal: Yes: WNL, Normal Bowel Sounds, Soft. No: Distention, Tenderness Renal/: Yes: WNL Musculoskeletal: Yes: WNL Extremities: Yes: WNL Edema: No Neurological: Yes: WNL, Alert, Oriented Psychiatric: Yes: WNL, Alert, Oriented Labs: CBC, BMP 06/20/18 05:30 06/21/18 05:30 Discharge Summary Reason For Visit: NEW AFIB, SMALL BOWEL OBSTRUCTION Current Active Problems Dehydration (Acute) Hypokalemia (Acute) Lactic acid acidosis (Acute) Leukocytosis (Acute) Paroxysmal atrial fibrillation with rapid ventricular response (Acute) SBO (small bowel obstruction) (Acute) Small bowel obstruction due to adhesions (Acute) Hospital Course: 82 year old female admitted for SBO, afib w/ RVR. SBO resolved with conservative management by surgery. Pt has been tolerating regular diet. Pt had diarrhea post contrast, improved, cdiff neg. Pt cleared by surgery. Afib with RVR resolved, cardiology managed. CHADVASC score warrants AC. Pt refuses AC despite stroke risk. Encouraged pt to continue discussion with PCP and cardiology to explore AC options. BP trend low-normal here, advises to hold irbersartan/hctz at home until follow up with PCP in 1 week. Otherwise, pt in no acute distress, tolerating diet, vitals stable, labs unremarkable. Pt is medically stable for discharge home. 32 minutes spent in discharge planning Condition: Improved - Instructions Diet, Activity, Other Instructions: resume activity/diet as tolerated you may take metamucil, make sure you drink plenty of fluids if taking it hold irbesartan/hctz until you follow up with follow up as directed Referrals: Cliff Sterling MD [Primary Care Provider] - 1 Week Rudi Peraza MD [Staff Physician] - 1 Week Disposition: HOME - Home Medications Comprehensive Discharge Medication List: Ambulatory Orders Metoprolol Succinate 50 mg PO DAILY 09/17/17 Nifedipine ER [Procardia XL -] 60 mg PO DAILY tab.er.24 09/22/17 Irbesartan/Hydrochlorothiazide [Irbesartan-Hctz 300-12.5 mg Tb] 1 each PO DAILY 06/16/18
[2018-06-21] MEDS: NIFEdipine E.R 60 MG TABLET (UD) PO SCH (09:14)
--- NOTE | 2018-06-21 09:59 | PN ---
Progress Note (short form) - Note Progress Note: Chief Complaint: vomiting History of Present Illness: no chest pain, palps, dizzy, dypnea, edema Current Medications Generic Name Dose Route Start Last Admin Trade Name Freq PRN Reason Stop Dose Admin Benzocaine/Menthol 1 each 06/18/18 11:39 Cepacol Lozenge - MM PRN PRN SORE THROAT Heparin Sodium (Porcine) 5,000 unit 06/17/18 22:00 06/21/18 06:23 Heparin - SQ 5,000 unit TID ABDIRIZAK Administration Metoprolol Succinate 50 mg 06/19/18 10:30 06/21/18 09:13 Toprol Xl - PO 50 mg DAILY ABDIRIZAK Administration Metoprolol Tartrate 5 mg 06/17/18 10:12 Lopressor Injection - IVPUSH Q4H PRN HYPERTENSION Nifedipine 60 mg 06/20/18 10:00 06/21/18 09:14 Procardia Xl - PO Not Given DAILY ABDIRIZAK Ondansetron HCl 4 mg 06/16/18 13:33 Zofran Injection IVPUSH Q6H PRN NAUSEA Simethicone 80 mg 06/20/18 08:33 06/20/18 09:47 Mylicon - PO 80 mg QID PRN Administration GAS - Objective Vital Signs Period Temp Pulse Resp BP Sys/Howard Pulse Ox Last 24 Hr 97.8 F-98.2 F 60-87 16-20 98-137/55-77 95 Constitutional: Yes: Well Nourished, No Distress, Calm Cardiovascular: Yes: Regular Rate and Rhythm, S1, S2. No: Gallop, Murmur Respiratory: Yes: Regular, CTA Bilaterally. No: Accessory Muscle Use, Rales, Wheezes Extremities: No: Cold Edema: No Neurological: Yes: Alert, Oriented Psychiatric: No: Agitated no jaundice diaphoresis Assessment/Plan cxr: clear lungs ecgs: afib with rvr. repeat ecg sr, nl intervals, no ischemic changes. echo 06/2018 nl LV size/function, impaired relaxation with nl filling pressures , mil MR, mild TR, PASP at least 34 mmHg, mild AR tele: sinus a/p: 82 f hx pafib, htn, here with abd pain, vomiting. sbo: -per gi, surgery -s/p conservative management, improved htn: - stable on home meds pafib: -presented in rvr, started dilt gtt-->converted to sr -remains in sinus, restarted metoprolol -chadsvasc 4--warrants AC. refused heparin gtt on admission (per RN report to dr thornton) -discussed recommendation for AC again with patient, she is thinking about eliquis still. Outpt f/u.
[2018-06-21 10:19] VITALS: BP 131/68; PULSE 84; TEMP 97.4
== END 2018-06-21 13:25 | disposition home or self-care (01) | DRG 389 ==
LOC: FER 03:05 → J4W 13:18
PROVIDERS: ADMIT Internal Medicine; ATTEND Internal Medicine
PROC: 0D9670Z Drainage of Stomach with Drainage Device, Via Natural or Artificial Opening (ICD-10-PCS; principal; 2018-06-16)
DX: K56.50 Intestinal adhesions [bands], unspecified as to partial versus complete obstruction (principal); E87.2 Acidosis; E87.6 Hypokalemia; R19.7 Diarrhea, unspecified; E86.0 Dehydration; I48.0 Paroxysmal atrial fibrillation; E78.5 Hyperlipidemia, unspecified; D72.829 Elevated white blood cell count, unspecified; K21.9 Gastro-esophageal reflux disease without esophagitis; Z88.0 Allergy status to penicillin; I10 Essential (primary) hypertension
CPT/HCPCS: 36415; 71045-TC-FY; 74018-TC-FY; 74019-TC-FY; 74174-TC; 80048; 80053; 81003; 81015; 83605; 83690; 83735; 84100; 84484; 85025; 85610; 86850; 86900; 86901; 87040; 87324; 87449; 87804; 93005; 93306-TC; 97116-GP; 97161-GP; 99285-25; J0131; J1644; J7030

== ENCOUNTER 2019-01-17 01:45 | Emergency (ER) | payer OTHER, MEDICARE ==
[2019-01-17 01:55] VITALS: BP 179/88; PULSE 85; TEMP 97.3; BMI 25.7
--- NOTE | 2019-01-17 02:03 | PDOC ---
Attending Attestation - Resident Resident Name: Nehemiah Wall - ED Attending Attestation I have performed the following: I have examined & evaluated the patient, The case was reviewed & discussed with the resident, I agree w/resident's findings & plan - HPI HPI: 01/17/19 02:54 83-year-old female status post mechanical fall with an injury to the scalp. There is no associated loss of consciousness. - Physicial Exam PE: 01/17/19 03:13 agree with resident exam - Medical Decision Making 01/17/19 03:13 83-year-old female with head trauma status post mechanical fall Plan for CT scans of the head and cervical spine with discharge if negative
--- NOTE | 2019-01-17 02:16 | PDOC ---
History of Present Illness - General Chief Complaint: Injury Stated Complaint: FALL Time Seen by Provider: 01/17/19 01:59 - History of Present Illness Initial Comments: 01/17/19 02:10 83 yo F with h/o HTN, HLD, GERD who p/w closed head injury s/p mechanical fall. Patient reports grabbing hand rail in bathroom, and hand rail detached from the wall and the patient fell backwards hitting the back of her head at approximately 1240 AM. Denies LOC, neck/back trauma, neck stiffness, convulsions. On ground for less than one minute. Ambulatory following fall. Denies AC. Denies h/o recurrent falls. Ambulates without assistive device. Lies at home alone. Applied ice to back of head. Patient denies TINEO, vision change, palpitations, cough, wheezing, orthopena, PND , leg swelling/pain, N/V, F,C, CP, SOB, urinary complaints, hematuria, BPR, abdominal pain, diarrhea, constipation, lightheadedness, weakness, sensory changes. PMHx: as noted above ROS: as noted SHx: Denies Etoh, IVDA, tobacco use Past History - Past Medical History Allergies/Adverse Reactions: Allergies Allergy/AdvReac Type Severity Reaction Status Date / Time azithromycin Allergy Verified 01/17/19 01:52 levofloxacin [From Levaquin] Allergy Verified 01/17/19 01:52 lisinopril [From Zestril] Allergy Verified 01/17/19 01:52 meperidine HCl [From Demerol] Allergy Verified 01/17/19 01:52 morphine Allergy Verified 01/17/19 01:52 Penicillins Allergy Verified 01/17/19 01:52 sulphur Allergy Uncoded 01/17/19 01:52 Home Medications: Ambulatory Orders Metoprolol Succinate 50 mg PO DAILY 09/17/17 Nifedipine ER [Procardia XL -] 60 mg PO DAILY tab.er.24 09/22/17 Irbesartan/Hydrochlorothiazide [Irbesartan-Hctz 300-12.5 mg Tb] 1 each PO DAILY 06/16/18 COPD: No HTN: Yes Hypercholesterolemia: Yes - Surgical History Abdominal Surgery: Yes (sbo) Cholecystectomy: Yes Orthopedic Surgery: Yes (Left lower leg sx ()) - Immunization History Immunization Up to Date: No - Suicide/Smoking/Psychosocial Hx Smoking History: Never smoked Have you smoked in the past 12 months: No Information on smoking cessation initiated: No Hx Alcohol Use: No Drug/Substance Use Hx: No Substance Use Type: None Hx Substance Use Treatment: No Review of Systems - Review of Systems Comments:: 01/17/19 02:16 GENERAL/CONSTITUTIONAL: No fever or chills. No weakness. HEAD, EYES, EARS, NOSE AND THROAT: No change in vision. No ear pain or discharge. No sore throat. CARDIOVASCULAR: No chest pain or shortness of breath RESPIRATORY: No cough, wheezing, or hemoptysis. GASTROINTESTINAL: No nausea, vomiting, diarrhea or constipation. GENITOURINARY: No dysuria, frequency, or change in urination. MUSCULOSKELETAL: No joint or muscle swelling or pain. No neck or back pain. SKIN: No rash NEUROLOGIC: + Posterior scalp hematoma. No headache, vertigo, loss of consciousness, or change in strength/sensation. ENDOCRINE: No increased thirst. No abnormal weight change HEMATOLOGIC/LYMPHATIC: No anemia, easy bleeding, or history of blood clots. ALLERGIC/IMMUNOLOGIC: No hives or skin allergy. *Physical Exam - Vital Signs Last Vital Signs Temp Pulse Resp BP Pulse Ox 97.3 F L 85 18 179/88 H 97 01/17/19 01:52 01/17/19 01:52 01/17/19 01:52 01/17/19 01:52 01/17/19 01:52 - Physical Exam Comments: 01/17/19 02:15 GENERAL: Awake, alert, and fully oriented, in no acute distress HEAD: Right posterior scalp-occiput hematoma with absent laceration, bleeding.No other signs of trauma, neg perioral or postauricular ecchymosis. Neg hematympanum. EYES: PERRLA, EOMI, sclera anicteric, conjunctiva clear ENT: Auricles normal inspection, hearing grossly normal, nares patent, oropharynx clear without exudates. Moist mucosa NECK: Normal ROM, supple, no lymphadenopathy, JVD, or masses LUNGS: No distress, speaks full sentences, clear to auscultation bilaterally HEART: Regular rate and rhythm, normal S1 and S2, no murmurs, rubs or gallops, peripheral pulses normal and equal bilaterally. ABDOMEN: Soft, nontender, normoactive bowel sounds. No guarding, no rebound. No masses EXTREMITIES : Normal inspection, Normal range of motion, no edema. No clubbing or cyanosis. NEUROLOGICAL: Cranial nerves II through XII grossly intact. Normal speech, normal gait, no focal sensorimotor deficits SKIN: Warm, Dry, normal turgor, no rashes or lesions noted ED Treatment Course - RADIOLOGY Radiology Studies Ordered: Category Date Time Status HEAD CT WITHOUT CONTRAST [CT] Stat CT Scan 01/17/19 02:10 Ordered Medical Decision Making - Medical Decision Making 01/17/19 02:13 83 yo F with h/o HTN, HLD, GERD who p/w closed head injury s/p mechanical fall. BP 179/88, vitals otherwise wnl, AF, A&OX3, GCS 15. Physical exam notable for right posterior scalp-occiput hematoma. C-spine neg per NEXUS. No evidence of basilar skull fracture. CTH r/o intracranial, hemorrhage, hematoma, skull fracture. Will provide oral analgesia and reassess. ED Course: Pt. refuses oral analgesia. 01/17/19 03:24 CTH, C-SPINE: Unremarkable Patient stable for d/c with return precautions Not endorsing pain Patient advised to f/u PMD *DC/Admit/Observation/Transfer Diagnosis at time of Disposition: Closed head injury Qualifiers: Encounter type: initial encounter Qualified Code(s): S09.90XA - Unspecified injury of head, initial encounter - Discharge Dispostion Disposition: HOME Condition at time of disposition: Stable Decision to Admit order: No - Referrals - Patient Instructions Printed Discharge Instructions: DI for Closed Head Injury Additional Instructions: Please return to the emergency department with any new or worsening symptoms or concerns. Please follow up with your primary care physician within 72 hours. - Post Discharge Activity
== END 2019-01-17 03:40 | disposition home or self-care (01) ==
LOC: JER 01:45
DX: S09.90XA Unspecified injury of head, initial encounter (principal); I10 Essential (primary) hypertension; E78.5 Hyperlipidemia, unspecified; K21.9 Gastro-esophageal reflux disease without esophagitis; K56.609 Unspecified intestinal obstruction, unspecified as to partial versus complete obstruction; E78.00 Pure hypercholesterolemia, unspecified; W10.9XXA Fall (on) (from) unspecified stairs and steps, initial encounter; Y93.89 Activity, other specified; Y92.008 Other place in unspecified non-institutional (private) residence as the place of occurrence of the external cause
CPT/HCPCS: 70450-TC; 72125-TC; 99281-25

== ENCOUNTER 2020-04-26 03:22 | Inpatient (IN) | payer OTHER, MEDICARE ==
--- NOTE | 2020-04-26 03:33 | PDOC ---
History of Present Illness - General Stated Complaint: ABD PAIN/VOMITING Time Seen by Provider: 04/26/20 03:30 History Source: Patient - History of Present Illness Initial Comments: 04/26/20 03:33 84F w/hx HTN, HLD, GERD, afib not on AC, hypothyroidism, SBO one year ago managed medically p/w acute onset nausea, vomiting abdominal pain. She reports that the pain began acutely at approx 1800 today, diffuse cramping 8/10 pain ass ociated with nausea, x1 nbnb vomiting. She reports hx cholecystectomy, partial bowel resection. She reports that the pain today feels similar to her prior SBO. She reports passing a small amount of gas since pain onset, no bowel movements today. Past History - Medical History Allergies/Adverse Reactions: Allergies Allergy/AdvReac Type Severity Reaction Status Date / Time azithromycin Allergy Verified 04/26/20 03:31 levofloxacin [From Levaquin] Allergy Verified 04/26/20 03:31 lisinopril [From Zestril] Allergy Verified 04/26/20 03:31 meperidine HCl [From Demerol] Allergy Verified 04/26/20 03:31 morphine Allergy Verified 04/26/20 03:31 Penicillins Allergy Verified 04/26/20 03:31 sulphur Allergy Uncoded 04/26/20 03:31 Home Medications: Ambulatory Orders Metoprolol Succinate 100 mg PO DAILY 09/17/17 Aspirin [ASA -] 81 mg PO DAILY 04/26/20 Diltiazem HCl [Diltiazem 24Hr Cd] 180 mg PO DAILY 04/26/20 Levothyroxine [Synthroid -] 25 mcg PO DAILY 04/26/20 Rosuvastatin [Crestor -] 10 mg PO HS 04/26/20 COPD: No HTN: Yes Hypercholesterolemia: Yes - Surgical History Abdominal Surgery: Yes (sbo) Cholecystectomy: Yes Orthopedic Surgery: Yes (Left lower leg sx ()) - Immunization History Immunization Up to Date: No - Psycho-Social/Smoking History Smoking History: Never smoked Have you smoked in the past 12 months: No Review of Systems - Review of Systems Able to Perform ROS?: Yes Comments:: 04/26/20 04:12 GENERAL/CONSTITUTIONAL: No fever or chills. No weakness. HEAD, EYES, EARS, NOSE AND THROAT: No change in vision. No ear pain or discharge. No sore throat. CARDIOVASCULAR: No chest pain or shortness of breath RESPIRATORY: No cough, wheezing, or hemoptysis. GASTROINTESTINAL: Nausea, vomiting, abdominal pain. No diarrhea or constipation. GENITOURINARY: No dysuria, frequency, or change in urination. MUSCULOSKELETAL: No joint or muscle swelling or pain. No neck or back pain. SKIN: No rash NEUROLOGIC: No headache, vertigo, loss of consciousness, or change in strength/sensation. ENDOCRINE: No increased thirst. No abnormal weight change HEMATOLOGIC/LYMPHATIC: No anemia, easy bleeding, or history of blood clots. ALLERGIC/IMMUNOLOGIC: No hives or skin allergy. *Physical Exam - Physical Exam 04/26/20 04:12 GENERAL: Awake, alert, and fully oriented, in no acute distress HEAD: No signs of trauma, normocephalic, atraumatic EYES: PERRLA, EOMI, sclera anicteric, conjunctiva clear ENT: Auricles normal inspection, hearing grossly normal, nares patent, oropharynx clear without exudates. Moist mucosa NECK: Normal ROM, supple, no lymphadenopathy, JVD, or masses LUNGS: No distress, speaks full sentences, clear to auscultation bilaterally HEART: Regular rate and rhythm, normal S1 and S2, no murmurs, rubs or gallops, peripheral pulses normal and equal bilaterally. ABDOMEN: Diffuse abdominal pain, hyperactive bowel sounds. Soft, no guarding, no rebound. No masses EXTREMITIES : Normal inspection, Normal range of motion, no edema. No clubbing or cyanosis NEUROLOGICAL: Cranial nerves II through XII grossly intact. Normal speech, normal gait, no focal sensorimotor deficits SKIN: Warm, Dry, normal turgor, no rashes or lesions noted ED Treatment Course - LABORATORY CBC & Chemistry Diagram: 04/26/20 04:05 04/26/20 04:05 Medical Decision Making - Medical Decision Making 04/26/20 04:13 84F w/hx prior SBO, cholecystectomy, partial bowel resection, afib not on AC p/w acute onset abdominal pain. Ddx SBO given surgical hx, prior SBO, no bowel movements or gas since pain onset. Pancreatitis also possible give acute onset n/v. Ischemic bowel possible given afib not on anticoagulation with sudden abdominal pain, although sbo more likely given hx. Plan: CBC CMP Lactate Lipase Troponin EKG CXR PT/INR, APTT TYpe and screen 1L LR [facility] CT Abdomen/pelvis w/po and IV contrast Dispo: Likely admit pending labs, imaging --- Lactate 3.3 Additional fluid bolus ordered Plan for 2 hr repeat 04/26/20 06:50 CT notable for SBO. NG tube placed with immediate return of gastric contents. Call placed to surgery Discharge - Discharge Information Problems reviewed: Yes - Follow up/Referral Referrals: Cliff Sterling MD [Primary Care Provider] - - Patient Discharge Instructions - Post Discharge Activity
--- NOTE | 2020-04-26 03:34 | PDOC ---
Attending Attestation - Resident Resident Name: DeepDirk - ED Attending Attestation I have performed the following: I have examined & evaluated the patient, The case was reviewed & discussed with the resident, I agree w/resident's findings & plan - HPI HPI: 04/26/20 04:00 Pt has a hx of abd surgery and now comes with vomiting and likely SBO - Physicial Exam PE: 04/26/20 04:00 Agree with resident exam - Medical Decision Making 04/26/20 04:00 Pt will have labs sent and will go for CT scan Likely admission 04/26/20 06:18 Pt vomited her oral contrast and whatever dinner she had eaten. Pt is calm now. She was sent for CTA abd/pelvis to r/o ischemia or SBO 04/26/20 06:19 Lactic acid 3.3; Pt has elevated WBC; dehydrated HB/ is 16 04/26/20 06:48 Patient Name: MAURISIO SIMON THIS IS A PRELIMINARY REPORT DATE OF SERVICE: 2020-04-26 06:00:25 IMAGES: [id number] EXAM: CTA abdomen and pelvis W/WO CONTRAST HISTORY: Abdominal pain. SBO versus mesenteric ischemia COMPARISON: None. FINDINGS: Lung bases are clear. The visualized cardiac chambers are normal size and configuration. Status post cholecystectomy with minimal biliary duct dilation. Normal pancreas, spleen, adrenal glands and kidneys. Small bowel obstruction with small bowel out of the 3.5 cm. Transition point appears to be a pelvic anastomosis, indicating anastomotic stricture. No abscess or free air.. There is no aortic aneurysm. There is no significant retroperitoneal lymphadenopathy. The appendix is normal. Patient is likely status post hysterectomy. Urinary bladder is obscured by bilateral hip prosthesis streak artifact. There is no pelvic free fluid. No discrete pelvic lymphadenopathy is identified. 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 04/26/20 06:48 NOTE: PT HAS MULTIPLE ALLERGIES: MORPHINE< DEMEROL< ZITHROMAX<SULFA<ETC<ETC 04/26/20 06:53 NGT placed. proper placement; draining gastric contents. 04/26/20 20:41 Pt admitted and signed out to the day team to admit patient . Heart Score/ECG Review - ECG Intrepretation Rhythm: Regular Rhythm - [place]: Normal - P and ND Prominent R with upright T in V1 (true posterior HI): No Delta Wave(s) Present: No WPW: No - ST and T Early Repolarization: No Non Specific ST-T Wave changes: No - ECG Impressions Normal ECG: Yes Non-specific ST Elevation: No Ischemic Changes: No Bradycardia: No Torsades karthik Pointes: No Discharge - Discharge Information Problems reviewed: Yes Clinical Impression/Diagnosis: SBO (small bowel obstruction) - Follow up/Referral - Patient Discharge Instructions - Post Discharge Activity
--- OUTSIDE RECORDS SUMMARY | 2020-04-26 03:36 | XMS ---
:1935 Author Organization [facility] Care Team Providers Name Role Phone ZEV RUTH Unavailable Unavailable PHILIPPE ARIAS Unavailable Unavailable Re-disclosure Warning The records that you are about to access may contain information from federally- assisted alcohol or drug abuse programs. If such information is present, then the following federally mandated warning applies: This information has been disclosed to you from records protected by federal confidentiality rules (42 CFR part 2). The federal rules prohibit you from making any further disclosure of this information unless further disclosure is expressly permitted by the written consent of the person to whom it pertains or as otherwise permitted by 42 CFR part 2. A general authorization for the release of medical or other information is NOT sufficient for this purpose. The Federal rules restrict any use of the information to criminally investigate or prosecute any alcohol or drug abuse patient.The records that you are about to access may contain highly sensitive health information, the redisclosure of which is protected by Article 27-F of the [facility] Public Health law. If you continue you may haveaccess to information: Regarding HIV / AIDS; Provided by facilities licensed or operated by the [facility] Office of Mental Health; or Provided by the [facility] Office for People With Developmental Disabilities. If such information is present, then the following [facility] mandated warning applies: This information has been disclosed to you from confidential records which are protected by state law. State law prohibits you from making any further disclosure of this information without the specific written consent of the person to whom it pertains, or as otherwise permitted by law. Any unauthorized further disclosure in violation of state law may result in a fine or penitentiary sentence or both. A general authorization for the release of medical or other information is NOT sufficient authorization for further disclosure. Encounters Encounter Providers Location Date Indications Data Source(s ) Outpatient Attender: FLORY 05/15/2019 [id number] [facility] ZEV BaerAdmitter: 06:00:00 [facility] [employer] ZVIReferrer: ZEV RUTH [id number] Outpatient Attender: ZEV RUTH 04/03/2019 03:47:00 S8. 2D [facility] BuffyAdmitter: HUGO, EDT [facility] ZVIReferrer: Norbert RUTH oration ZEV Baer [id number] Insurance Providers Payer name Policy type Policy ID Covered Covered constitution party's Policy P bacilio / Coverage constitution party ID relationship to [place] Inf ormation type saldana [facility] [employer] [id number] SP [id number] [employer] MED[employer]ARE [id number] SP [id number] [facility] [id number] SP [id number] [employer]ARE [id number] SP [id number] A Problems, Conditions, and Diagnoses Code Display Name Description Problem Type Effective Data Sour ce(s) Dates Displaced pilon DISPLACED PILON Diagnosis 05/15/2019 [place] fracture of left FX LEFT TIBIA, 06:00:00 AM [employer] tibia, SUBS FOR CLOS FX EDT [employer] poration subsequent [facility] encounter for closed fracture with routine healing
[2020-04-26] MEDS ORDERED: LACTATED RINGERS SOLUTION 1000 ML INFUS.BAG IV ONE ×2 (03:45→05:13)
[2020-04-26] MEDS ORDERED: FAMOTIDINE 20 MG/50 ML IVPB 20 MG/50 ML MG IVPB ONE ×2 (03:46→04:05)
[2020-04-26] MEDS ORDERED: ONDANSETRON 4 MG/2 ML VIAL IVPUSH ONE (03:46)
[2020-04-26] MEDS ORDERED: ACETAMINOPHEN 1000 MG/100 ML VIAL (NON FORMULARY) IVPB ONE (03:47)
[2020-04-26] MEDS ORDERED: LORazepam 2 MG/ML SDV VIAL ONE (04:04)
[2020-04-26] MEDS ORDERED: ACETAMINOPHEN INJECTION 100 ML IVPB ONE (04:05)
[2020-04-26 04:21] LABS: EOS % 0.7 % (0-4.5); HEMATOCRIT 47.4 % (32.4-45.2); HEMOGLOBIN 16.1 GM/dL (10.7-15.3); LYMPH % 13.7 % (8-40); MCH 28.2 pg (25.7-33.7); MEAN CELL VOLUME 82.9 fl (80-96); MEAN PLT VOLUME 8.6 fl (7.5-11.1); MONO % 9.1 % (3.8-10.2); NEUT % 75.5 % (42.8-82.8); PLATELET COUNT 286 K/MM3 (134-434); RBC 5.71 M/mm3 (3.60-5.2); RDW 14.8 % (11.6-15.6); WHITE BLOOD COUNT 10.7 K/mm3 (4.0-10.0)
[2020-04-26 04:35] LABS: INR 0.96 (0.83-1.09); PROTHROMBIN TIME (PATIENT) 11.3 SEC (9.7-13.0)
[2020-04-26 04:37] LABS: ACTIVATED PTT 29.9 SECONDS (25.2-36.5)
[2020-04-26 04:48] LABS: ALBUMIN 4.2 g/dl (3.4-5.0); ALK PHOS 76 U/L (45-117); ANION GAP 8 MMOL/L (8-16); BILIRUBIN,TOTAL 1.1 mg/dL (0.2-1); BLOOD UREA NITROGEN 14.7 mg/dL (7-18); CALCIUM 10.6 mg/dL (8.5-10.1); CHLORIDE 100 mmol/L (98-107); CO2 30 mmol/L (21-32); CREATININE 0.9 mg/dL (0.55-1.3); GLUCOSE,RANDOM 121 mg/dL (74-106); LIPASE 141 U/L (73-393); POTASSIUM 3.7 mmol/L (3.5-5.1); SGOT/AST 18 U/L (15-37); SGPT/ALT 18 U/L (13-61); SODIUM 138 mmol/L (136-145)
[2020-04-26] MEDS ORDERED: ONDANSETRON 4 MG/2 ML VIAL IVPB ONE (05:52)
[2020-04-26] MEDS ORDERED: LIDOCAINE HCL 2% JELLY 10 ML CARTRIDGE ONE (06:34)
--- NOTE | 2020-04-26 07:01 | PDOC ---
*Physical Exam - Vital Signs Last Vital Signs Temp Pulse Resp BP Pulse Ox 97.6 F 73 18 168/86 97 04/26/20 03:42 04/26/20 03:31 04/26/20 03:31 04/26/20 03:31 04/26/20 06:15 - Physical Exam General Appearance: Yes: Nourished, Appropriately Dressed. No: Apparent Distress Respiratory/Chest: positive: Lungs Clear, Normal Breath Sounds. negative: Chest Tender, Crackles, Stridor, Wheezing Cardiovascular: positive: Regular Rhythm, Regular Rate. negative: Edema, JVD, Murmur Gastrointestinal/Abdominal: positive: Normal Bowel Sounds, Tender, Flat, Soft, Tenderness. negative: Distended, Guarding, Rebound Musculoskeletal: positive: Normal Inspection. negative: CVA Tenderness Integumentary: positive: Normal Color, Dry, Warm Neurologic: positive: Fully Oriented, Alert, Normal Mood/Affect, Normal Response ED Treatment Course - LABORATORY CBC & Chemistry Diagram: 04/26/20 04:05 04/26/20 04:05 - ADDITIONAL ORDERS Additional order review: Laboratory Results 04/26/20 04/26/20 04/26/20 04:05 04:05 04:05 PT with INR INR PTT (Actin FS) Sodium 138 Potassium 3.7 Chloride 100 Carbon Dioxide 30 Anion Gap 8 BUN 14.7 Creatinine 0.9 Est GFR (CKD-EPI)AfAm 68.53 Est GFR (CKD-EPI)NonAf 59.13 Random Glucose 121 H Lactic Acid 3.3 H* Calcium 10.6 H Total Bilirubin 1.1 H AST 18 ALT 18 Alkaline Phosphatase 76 Troponin I < 0.02 Total Protein 9.0 H Albumin 4.2 Lipase 141 Blood Type O POSITIVE Antibody Screen Negative 04/26/20 04:05 PT with INR 11.30 INR 0.96 PTT (Actin FS) 29.9 Sodium Potassium Chloride Carbon Dioxide Anion Gap BUN Creatinine Est GFR (CKD-EPI)AfAm Est GFR (CKD-EPI)NonAf Random Glucose Lactic Acid Calcium Total Bilirubin AST ALT Alkaline Phosphatase Troponin I Total Protein Albumin Lipase Blood Type Antibody Screen 04/26/20 04:05 RBC 5.71 H MCV 82.9 MCHC 34.0 RDW 14.8 MPV 8.6 Neutrophils % 75.5 D Lymphocytes % 13.7 D Monocytes % 9.1 Eosinophils % 0.7 D Basophils % 1.0 - Medications Given in the ED: ED Medications Discontinued Medications Generic Name Dose Route Start Last Admin Trade Name Elenita PRN Reason Stop Dose Admin Acetaminophen 1,000 mg 04/26/20 03:47 04/26/20 04:21 Ofirmev Injection - IVPB 04/26/20 03:48 1,000 mg ONCE ONE Administration Famotidine/Sodium Chloride 20 mg in 50 mls @ 100 mls/hr 04/26/20 03:46 04/26/20 04:21 Pepcid 20 Mg Premixed Ivpb - IVPB 04/26/20 04:15 100 mls/hr ONCE ONE Administration Lactated Ringer's 1,000 ml 04/26/20 03:45 04/26/20 04:20 Lactated Ringers Solution IV 04/26/20 03:46 1,000 ml ONCE ONE Administration Lactated Ringer's 1,000 ml 04/26/20 05:13 04/26/20 05:24 Lactated Ringers Solution IV 04/26/20 05:14 1,000 ml ONCE ONE Administration Lorazepam 2 mg 04/26/20 04:01 04/26/20 04:21 Ativan Injection - IVPUSH 04/26/20 04:02 2 mg ONCE ONE Administration Ondansetron HCl 4 mg 04/26/20 03:46 04/26/20 04:21 Zofran Injection IVPUSH 04/26/20 03:47 4 mg ONCE ONE Administration Ondansetron HCl 4 mg 04/26/20 05:52 04/26/20 05:54 Zofran Injection IVPB 04/26/20 05:53 4 mg ONCE ONE Administration Medical Decision Making - Medical Decision Making 04/26/20 07:34 84F w/hx HTN, HLD, GERD, afib not on AC, hypothyroidism, SBO one year ago medicslly managed presenting w/ N/W abdominal pain. Sign out from Dr. Adame - Patient pulled out NG tube, tube was reinserted to 50cm. - Lactate uptrending - Reglan 10mg, benadryl 25mg given 04/26/20 08:19 Discharge - Discharge Information Problems reviewed: Yes Clinical Impression/Diagnosis: SBO (small bowel obstruction) - Follow up/Referral - Patient Discharge Instructions - Post Discharge Activity
[2020-04-26] MEDS ORDERED: METOCLOPRAMIDE HCL INJECTION 10 MG/2 ML VIAL IVPB ONE (07:16)
[2020-04-26] MEDS ORDERED: METOCLOPRAMIDE HCL INJECTION 10 MG/2 ML VIAL ONE (07:22)
--- NOTE | 2020-04-26 09:01 | CONSULT ---
- Consultation REQUESTING PROVIDER: Janeth PALOMINO CONSULT REQUEST: We have been asked to surgically evaluate this patient for (s pecify). Hospitalist: HISTORY OF PRESENT ILLNESS: FILIPPO who is an 84 y/o W/female w/an xtensive past surgical hx. who presents w/n/v/abdomonal pain; she has a h/o previous SBO's in the past managed conservatively and at times refusing NGT decompression. ? 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 She is not passing gas and has been vomiting and unable to tolerate PO. She has croampy pain. PMHx: HTN/hypothyroid/HLD PSHx: lap winifred; lap sigmoid resection Home Medications Medication Instructions Recorded Metoprolol Succinate 100 mg PO DAILY 09/17/17 Aspirin [ASA -] 81 mg PO DAILY 04/26/20 Diltiazem HCl [Diltiazem 24Hr Cd] 180 mg PO DAILY 04/26/20 Levothyroxine [Synthroid -] 25 mcg PO DAILY 04/26/20 Rosuvastatin [Crestor -] 10 mg PO HS 04/26/20 Allergies Allergy/AdvReac Type Severity Reaction Status Date / Time azithromycin Allergy Verified 04/26/20 03:31 levofloxacin [From Levaquin] Allergy Verified 04/26/20 03:31 lisinopril [From Zestril] Allergy Verified 04/26/20 03:31 meperidine HCl [From Demerol] Allergy Verified 04/26/20 03:31 morphine Allergy Verified 04/26/20 03:31 Penicillins Allergy Verified 04/26/20 03:31 sulphur Allergy Uncoded 04/26/20 03:31 REVIEW OF SYSTEMS: CONSTITUTIONAL: Absent: fever, chills, diaphoresis, generalized weakness, malaise, loss of appetite, weight change CARDIOVASCULAR: Absent: chest pain, syncope, palpitations, irregular heart rate, lightheadedness, peripheral edema RESPIRATORY: Absent: cough, shortness of breath, dyspnea with exertion, wheezing, stridor, hemoptysis GASTROINTESTINAL: Present: abdominal pain, abdominal distension, nausea, vomiting, Absent:diarrhea, constipation, melena, hematochezia GENITOURINARY: Absent: dysuria, frequency, urgency, hesitancy, hematuria, flank pain, genital pain MUSCULOSKELETAL: Absent: myalgia, arthralgia, joint swelling, back pain, neck pain SKIN: Absent: rash, itching, pallor HEMATOLOGIC/IMMUNOLOGIC: Absent: easy bleeding, easy bruising, lymphadenopathy NEUROLOGIC: Absent: headache, focal weakness, paresthesias, dizziness, unsteady gait, seizure, mental status changes, bladder or bowel incontinence PSYCHIATRIC: Absent: anxiety, depression, suicidal or homicidal ideation, hallucinations. PHYSICAL EXAM: GENERAL: Awake, alert, and fully oriented, in no acute distress. HEAD: Normal with no signs of trauma. EYES: sclera anicteric, conjunctiva clear. NECK: Normal ROM, supple without lymphadenopathy, JVD, or masses. ABDOMEN: Soft, nontender, minimal if any distention and tympany, scarce bowel sounds, no guarding, no rebound, no masses. No organomegaly. Healed midline surgical incision. MUSCULOSKELETAL: Normal ROM at all joints. No bony deformities or tenderness. No CVA tenderness. UPPER EXTREMITIES: 2+ pulses, warm, well-perfused. No cyanosis. Cap refill <2 seconds. No peripheral edema. LOWER EXTREMITIES: 2+ pulses, warm, well-perfused. No calf tenderness. No peripheral edema. NEUROLOGICAL: Normal speech, gait not observed. PSYCH: Cooperative. Good eye contact. Appropriate mood and affect. SKIN: Warm, dry, normal turgor, no rashes or lesions noted. Vital Signs Temperature 98 F 04/26/20 07:30 Pulse Rate 70 04/26/20 06:50 Respiratory Rate 18 04/26/20 07:30 Blood Pressure 129/65 04/26/20 07:30 O2 Sat by Pulse Oximetry (%) 98 04/26/20 07:30 Lab Results WBC 10.7 K/mm3 (4.0-10.0) H 04/26/20 04:05 RBC 5.71 M/mm3 (3.60-5.2) H 04/26/20 04:05 Hgb 16.1 GM/dL (10.7-15.3) H 04/26/20 04:05 Hct 47.4 % (32.4-45.2) H D 04/26/20 04:05 MCV 82.9 fl (80-96) 04/26/20 04:05 MCHC 34.0 g/dl (32.0-36.0) 04/26/20 04:05 RDW 14.8 % (11.6-15.6) 04/26/20 04:05 Plt Count 286 K/MM3 (134-434) D 04/26/20 04:05 INR 0.96 (0.83-1.09) 04/26/20 04:05 Sodium 138 mmol/L (136-145) 04/26/20 04:05 Potassium 3.7 mmol/L (3.5-5.1) 04/26/20 04:05 Chloride 100 mmol/L (98-107) 04/26/20 04:05 Carbon Dioxide 30 mmol/L (21-32) 04/26/20 04:05 Anion Gap 8 MMOL/L (8-16) 04/26/20 04:05 BUN 14.7 mg/dL (7-18) 04/26/20 04:05 Creatinine 0.9 mg/dL (0.55-1.3) 04/26/20 04:05 Random Glucose 121 mg/dL (74-106) H 04/26/20 04:05 Calcium 10.6 mg/dL (8.5-10.1) H 04/26/20 04:05 Blood Type O POSITIVE 04/26/20 04:05 Antibody Screen Negative 04/26/20 04:05 Imaging w/u to date reviewed IMP: SBO; recurrent PLAN: NPO/IVF/NGT/li to monitor UO/serial exams and xrays; possible operative intervetion d/w the patient. Michael Roche MD FACS
[2020-04-26 09:52] LABS: URINE APPEARANCE Clear; URINE BILIRUBIN Negative (NEGATIVE); URINE COLOR Yellow; URINE GLUCOSE (UA) Negative (NEGATIVE); URINE KETONE Negative (NEGATIVE); URINE LEUK ESTERASE Negative (NEGATIVE); URINE NITRITE Negative (NEGATIVE); URINE PROTEIN 1+ (NEGATIVE); URINE UROBILINOGEN 0.2 mg/dL (0.2-1.0)
[2020-04-26] MEDS: SODIUM CHLORIDE 1,000 ML IV SCH ×2 (09:57→22:55)
--- OUTSIDE RECORDS SUMMARY | 2020-04-26 10:13 | XMS ---
[...] is protected by Article 27-F of the [facility] Public Health law. If you continue you may haveaccess to information: Regarding HIV / AIDS; Provided by facilities licensed or operated by the [facility] Office of Mental Health; or Provided by the [facility] Office for People With Developmental Disabilities. If such information is present, then the following [facility] mandated warning applies: This information has [...] law may result in a fine or fdc sentence or both. A general authorization for the release of medical or other information is NOT sufficient authorization for further disclosure. Encounters Encounter Providers Location Date Indications Data Source(s ) Outpatient Attender: FLORY 05/15/2019 [id number] [facility] ZEV BaerAdmitter: 06:00:00 AM Health Care [employer] ZVIReferrer: ZEV RUTH [id number] Outpatient Attender: ZEV RUTH 04/03/2019 03:47:00 [id number] [facility] BuffyAdmitter: VIK ARIAS EDT [facility] ZVIReferrer: Norbert RUTH oration ZEV Baer [id number] Insurance Providers Payer name Policy type Policy ID Covered Covered green party's Policy P bacilio / Coverage green party ID relationship to [place] [employer] or[employer]ation type [place] [facility] [id number] SP [id number] CARE OPTIONS MEDICARE [id number] SP [id number] [facility] [id number] SP [id number] [employer] MEDICARE [id number] SP [id number] A Problems, Conditions, and Diagnoses Code Display Name Description Problem Type Effective Data Sour ce(s) Dates Displaced pilon DISPLACED PIL[facility] 06:00:00 AM Cou [employer]ASH [employer] tibia, SUBS FOR CLOS FX EDT Care Cor poration subsequent [facility] encounter for closed fracture with routine healing
--- NOTE | 2020-04-26 11:19 | HP ---
CHIEF COMPLAINT: Abdominal Pain diffusely PCP:Dr. Sterling HISTORY OF PRESENT ILLNESS: This is an 84F w/hx HTN, HLD, GERD, afib not on AC, hypothyroidism, SBO one year ago managed medically p/w acute onset nausea, vomiting abdominal pain. She reports that the pain began acutely at approx 5PM yesterday, diffuse cramping 8/10 pain associated with nausea, x1 nbnb vomiting. She reports hx cholecystectomy, partial bowel resection. She reports that the pain today feels similar to her prior SBO. She reports passing a small amount of gas since pain onset, no bowel movements today. 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 She is not passing gas and has been vomiting and unable to tolerate PO. She has crampy pain. She was treated and followed at [facility], last time she was there was 2013 per patient and they told her she was "fine" and didnt have to follow up anymore. ER course was notable for: (1)1.5 L of LR given in ED, NG tube placed with 400 cc suction (2)10.8 leukocytosis (3)pt made npo, Sx consulted Recent Travel:denies PAST MEDICAL HISTORY: PAST SURGICAL HISTORY: lap sigmoid resection, hysterectomy with preservation of cervix, cholecystectomy lap Social History: Smoking:denies Alcohol:denies Drugs: denies Allergies azithromycin Allergy (Verified 04/26/20 03:31) levofloxacin [From Levaquin] Allergy (Verified 04/26/20 03:31) lisinopril [From Zestril] Allergy (Verified 04/26/20 03:31) meperidine HCl [From Demerol] Allergy (Verified 04/26/20 03:31) morphine Allergy (Verified 04/26/20 03:31) Penicillins Allergy (Verified 04/26/20 03:31) sulphur Allergy (Uncoded 04/26/20 03:31) HOME MEDICATIONS: Home Medications Medication Instructions Recorded Metoprolol Succinate 100 mg PO DAILY 09/17/17 Aspirin [ASA -] 81 mg PO DAILY 04/26/20 Diltiazem HCl [Diltiazem 24Hr Cd] 180 mg PO DAILY 04/26/20 Levothyroxine [Synthroid -] 25 mcg PO DAILY 04/26/20 Rosuvastatin [Crestor -] 10 mg PO HS 04/26/20 REVIEW OF SYSTEMS CONSTITUTIONAL: Absent: fever, chills, diaphoresis, generalized weakness, malaise, loss of appetite, weight change HEENT: Absent: rhinorrhea, nasal congestion, throat pain, throat swelling, difficulty swallowing, mouth swelling, ear pain, eye pain, visual changes CARDIOVASCULAR: Absent: chest pain, syncope, palpitations, irregular heart rate, lightheadedness, peripheral edema RESPIRATORY: Absent: cough, shortness of breath, dyspnea with exertion, orthopnea, wheezing, stridor, hemoptysis GASTROINTESTINAL: Absent: abdominal pain, abdominal distension, nausea, vomiting, diarrhea, constipation, melena, hematochezia GENITOURINARY: Absent: dysuria, frequency, urgency, hesitancy, hematuria, flank pain, genital pain MUSCULOSKELETAL: Absent: myalgia, arthralgia, joint swelling, back pain, neck pain SKIN: Absent: rash, itching, pallor HEMATOLOGIC/IMMUNOLOGIC: Absent: easy bleeding, easy bruising, lymphadenopathy, frequent infections ENDOCRINE: Absent: unexplained weight gain, unexplained weight loss, heat intolerance, cold intolerance NEUROLOGIC: Absent: headache, focal weakness or paresthesias, dizziness, unsteady gait, seizure, mental status changes, bladder or bowel incontinence PSYCHIATRIC: Absent: anxiety, depression, suicidal or homicidal ideation, hallucinations. PHYSICAL EXAMINATION Vital Signs - 24 hr 04/26/20 04/26/20 04/26/20 03:31 03:42 06:50 Temperature 97.6 F 98.1 F Pulse Rate 73 Pulse Rate [ Apical] Pulse Rate [ 70 Left Radial] Respiratory 18 17 Rate Blood Pressure 168/86 Blood Pressure 152/79 [Right Arm] O2 Sat by Pulse 97 97 Oximetry (%) 04/26/20 04/26/20 04/26/20 06:55 07:30 08:50 Temperature 98 F 98.4 F Pulse Rate Pulse Rate [ 74 Apical] Pulse Rate [ Left Radial] Respiratory 18 20 Rate Blood Pressure Blood Pressure 129/65 130/69 [Right Arm] O2 Sat by Pulse 97 98 92 L Oximetry (%) 04/26/20 08:52 Temperature Pulse Rate 74 Pulse Rate [ Apical] Pulse Rate [ Left Radial] Respiratory Rate Blood Pressure Blood Pressure [Right Arm] O2 Sat by Pulse 95 Oximetry (%) GENERAL: Awake, alert, and fully oriented, in no acute distress. HEAD: Normal with no signs of trauma. EYES: Pupils equal, round and reactive to light, extraocular movements intact, sclera anicteric, conjunctiva clear. No lid lag. EARS, NOSE, THROAT: Ears normal, nares patent, oropharynx clear without exudates. Moist mucous membranes. NECK: Normal range of motion, supple without lymphadenopathy, JVD, or masses. LUNGS: Breath sounds equal, clear to auscultation bilaterally. No wheezes, and no crackles. No accessory muscle use. HEART: Regular rate and rhythm, normal S1 and S2 without murmur, rub or gallop. ABDOMEN: Soft, nontender, not distended, normoactive bowel sounds, no guarding, no rebound, no masses. No hepatomegaly or splenomegaly. MUSCULOSKELETAL: Normal range of motion at all joints. No bony deformities or tenderness. No CVA tenderness. UPPER EXTREMITIES: 2+ pulses, warm, well-perfused. No cyanosis. No clubbing. No peripheral edema. LOWER EXTREMITIES: 2+ pulses, warm, well-perfused. No calf tenderness. No peripheral edema. NEUROLOGICAL: Cranial nerves II-XII intact. Normal speech. Normal gait. PSYCHIATRIC: Cooperative. Good eye contact. Appropriate mood and affect. SKIN: Warm, dry, normal turgor, no rashes or lesions noted, normal capillary refill. Laboratory Results - last 24 hr 04/26/20 04/26/20 04/26/20 04:05 04:05 04:05 WBC 10.7 H RBC 5.71 H Hgb 16.1 H Hct 47.4 H D MCV 82.9 MCH 28.2 MCHC 34.0 RDW 14.8 Plt Count 286 D MPV 8.6 Absolute Neuts (auto) 8.0 Neutrophils % 75.5 D Lymphocytes % 13.7 D Monocytes % 9.1 Eosinophils % 0.7 D Basophils % 1.0 Nucleated RBC % 0 PT with INR 11.30 INR 0.96 PTT (Actin FS) 29.9 Sodium 138 Potassium 3.7 Chloride 100 Carbon Dioxide 30 Anion Gap 8 BUN 14.7 Creatinine 0.9 Est GFR (CKD-EPI)AfAm 68.53 Est GFR (CKD-EPI)NonAf 59.13 Random Glucose 121 H Lactic Acid Calcium 10.6 H Total Bilirubin 1.1 H AST 18 ALT 18 Alkaline Phosphatase 76 Troponin I < 0.02 Total Protein 9.0 H Albumin 4.2 Lipase 141 Urine Color Urine Appearance Urine pH Ur Specific [place] Urine Protein Urine Glucose (UA) Urine Ketones Urine Blood Urine Nitrite Urine Bilirubin Urine Urobilinogen Ur Leukocyte Esterase Blood Type Antibody Screen 04/26/20 04/26/20 04/26/20 04:05 04:05 06:20 WBC RBC Hgb Hct MCV MCH MCHC RDW Plt Count MPV Absolute Neuts (auto) Neutrophils % Lymphocytes % Monocytes % Eosinophils % Basophils % Nucleated RBC % PT with INR INR PTT (Actin FS) Sodium Potassium Chloride Carbon Dioxide Anion Gap BUN Creatinine Est GFR (CKD-EPI)AfAm Est GFR (CKD-EPI)NonAf Random Glucose Lactic Acid 3.3 H* Calcium Total Bilirubin AST ALT Alkaline Phosphatase Troponin I < 0.02 Total Protein Albumin Lipase Urine Color Urine Appearance Urine pH Ur Specific [place] Urine Protein Urine Glucose (UA) Urine Ketones Urine Blood Urine Nitrite Urine Bilirubin Urine Urobilinogen Ur Leukocyte Esterase Blood Type O POSITIVE Antibody Screen Negative 04/26/20 04/26/20 06:50 09:30 WBC RBC Hgb Hct MCV MCH MCHC RDW Plt Count MPV Absolute Neuts (auto) Neutrophils % Lymphocytes % Monocytes % Eosinophils % Basophils % Nucleated RBC % PT with INR INR PTT (Actin FS) Sodium Potassium Chloride Carbon Dioxide Anion Gap BUN Creatinine Est GFR (CKD-EPI)AfAm Est GFR (CKD-EPI)NonAf Random Glucose Lactic Acid 3.5 H* Calcium Total Bilirubin AST ALT Alkaline Phosphatase Troponin I Total Protein Albumin Lipase Urine Color Yellow Urine Appearance Clear Urine pH 7.0 Ur Specific [place] 1.010 Urine Protein 1+ H Urine Glucose (UA) Negative Urine Ketones Negative Urine Blood Trace-intact Urine Nitrite Negative Urine Bilirubin Negative Urine Urobilinogen 0.2 Ur Leukocyte Esterase Negative Blood Type Antibody Screen ASSESSMENT/PLAN: This is an 84F w/hx HTN, HLD, GERD, afib not on AC, hypothyroidism, SBO one year ago managed medically p/w acute onset nausea, vomiting abdominal pain. She reports that the pain began acutely at approx 5PM yesterday, diffuse cramping 8/10 pain associated with nausea, x1 nbnb vomiting. She reports hx cholecystectomy, partial bowel resection. #SBO - likely 2/2 adhesions from multiple abdominal surgeries - surgery consulted will attempt medical mgmt at this time with ng tube suction, npo, IVF hydration - serial abdominal exams, xrays - CTA not showing any ischemic colitis just SBO likely 2/2 pelvic anastomotic SBO per ED staff official read still pending - abdomen benign at this time, vitals stable, lactic acid 3.5 will rpt in AM and trend until less than 2 - UA negative #Hypercalcemia - 10.6 with normal albumin - ? related to reoccurence of malignancy vs new malignancy vs iatrogenic as patient takes Ca supplements at home; super calcium 1200 BID - vitamin D, ionized Ca, and PTH ordered - f/u and address accordingly #AF not on AC - likely 2/2 bleed risk - H/H elevated could be reactive or dehydration induced - continue metoprolol 100 daily, 50 HS metoprolol succinate #Hypothyroidism #HTN #GERD #HLD - continue synthroid 25 mcg daily as per home med dose - continue crestor 10 FEN/DVT/GI ppx Hold chemical DVT ppx as pt may go to OR SCD's continue IVF hydration Family Medical History Family History: Unremarkable Visit type - Medication Review Med list reviewed for High Risk Meds patients 65 and older: Yes - Emergency Visit Emergency Visit: Yes ED Registration Date: 04/26/20 Care time: The patient presented to the Emergency Department on the above date and was hospitalized for further evaluation of their emergent condition. - New Patient This patient is new to me today: Yes Date on this admission: 04/26/20 - Critical Care Critical Care patient: No ATTENDING PHYSICIAN STATEMENT I saw and evaluated the patient. I reviewed the resident's note and discussed the case with the resident. I agree with the resident's findings and plan as documented. SUBJECTIVE: OBJECTIVE: ASSESSMENT AND PLAN:
--- NOTE | 2020-04-26 11:36 | PN ---
Progress Note (short form) - Note Progress Note: Patient was seen and examined by ICU, and discussed with attending. Patient was stable and transferred to . No further ICU care indicated at the time, please call if patient's condition worsens. Thank you for the consultation.
[2020-04-26 14:40] VITALS: BMI 25.3
--- NOTE | 2020-04-26 16:19 | PN ---
Teaching Attending Note Name of Resident: Saurav Reese ATTENDING PHYSICIAN STATEMENT I saw and evaluated the patient. I reviewed the resident's note and discussed the case with the resident. I agree with the resident's findings and plan as documented. SUBJECTIVE: 84 yo F w/pmhx HTN, HLD, GERD, afib not on AC, hypothyroidism, SBO one year ago managed medically who presented to the ED c/o a 1 day h/o 02/23, diffuce cramping abdominal pain & 1 episode of NBNB vomiting. Pt passing small amount of gas since onset of pain, but has not had a BM today. States that pain is similar to her previous SBOs. CTAP in ED showed SBO. NG inserted and surgery consulted form ED, will manage medically for now. See resident note for full details. OBJECTIVE: Vital Signs Temperature 99.8 F H 04/26/20 15:00 Pulse Rate 75 04/26/20 15:00 Respiratory Rate 18 04/26/20 15:00 Blood Pressure 138/66 04/26/20 15:00 O2 Sat by Pulse Oximetry (%) 96 04/26/20 15:00 CBC, BMP 04/26/20 04:05 04/26/20 04:05 PE: Heart: rrr, s1, s2 heard no mgr Lungs: CTA b/l Abdomen: soft, nontender, not distended, hyperactive bowel sounds noted. NGT in place hooked to suction and draining well. Extremities: No swelling, normal coloration ASSESSMENT AND PLAN: 84 yo F w/pmhx HTN, HLD, GERD, afib not on AC, hypothyroidism, SBO one year ago managed medically who presented to the ED c/o a 1 day h/o 02/23, diffuse cramping abdominal pain & 1 episode of NBNB vomiting. Found to have RPT SBO in ct. #SBO #lactic acidosis #HTN #HLD #afib #hypothyroid -NGT in place, draining well -Surgery onboard -pain control -zofran PRN for nausea -trend lactic -no indication for ICU at this time -resume home diltiazem, metoprolol, crestor, synthroid -heparin sq 5ku q8h for DVT prophy. will hold if sx planned.
[2020-04-26] MEDS ORDERED: ONDANSETRON 4 MG/2 ML VIAL IVPUSH PRN (17:33)
--- NOTE | 2020-04-26 21:45 | EKG ---
Test Reason : Blood Pressure : / mmHG Vent. Rate : 069 BPM Atrial Rate : 069 BPM P-R Int : 170 ms QRS Dur : 096 ms QT Int : 418 ms P-R-T Axes : 016 -29 -16 degrees QTc Int : 447 ms NORMAL SINUS RHYTHM NONSPECIFIC ST ABNORMALITY ABNORMAL ECG WHEN COMPARED WITH ECG OF 16-JUN-2018 07:55, ST NOW DEPRESSED IN INFERIOR LEADS T WAVE INVERSION NOW EVIDENT IN INFERIOR LEADS Confirmed by Janine Smith ([id number]) on 04/26/2020 9:44:35 PM Referred By: Confirmed By:Janine Smith
[2020-04-26] MEDS: HEPARIN NA (PORCINE) 5,000 UNITS/ML 1ML VIAL SQ SCH (21:52)
[2020-04-26] MEDS: ROSUVASTATIN CA 10 MG TABLET (FP) PO SCH (21:52)
[2020-04-27] MEDS: ACETAMINOPHEN 1000 MG/100 ML VIAL (NON FORMULARY) IVPB PRN ×3 (05:06→21:18)
[2020-04-27] MEDS: HEPARIN NA (PORCINE) 5,000 UNITS/ML 1ML VIAL SQ SCH ×3 (06:22→21:17)
[2020-04-27] MEDS: LEVOTHYROXINE NA 25 MCG TABLET (FP) PO SCH (06:22)
[2020-04-27 08:01] LABS: BASO % 0.4 % (0-2.0); EOS % 1.9 % (0-4.5); HEMATOCRIT 37.1 % (32.4-45.2); HEMOGLOBIN 12.5 GM/dL (10.7-15.3); LYMPH % 25.1 % (8-40); MCHC 33.8 g/dl (32.0-36.0); MEAN PLT VOLUME 8.6 fl (7.5-11.1); NEUT % 55.6 % (42.8-82.8); PLATELET COUNT 211 K/MM3 (134-434); RBC 4.47 M/mm3 (3.60-5.2); RDW 14.8 % (11.6-15.6); WHITE BLOOD COUNT 6.2 K/mm3 (4.0-10.0)
--- NOTE | 2020-04-27 08:20 | PN ---
Progress Note (short form) - Note Progress Note: Surgery: Pt states that she passed flatus several times yesterday. No BM, no abd pain. Vital Signs Period Temp Pulse Resp BP Sys/Howard Pulse Ox Last 24 Hr 98.4 F-99.8 F 63-88 18-20 130-159/66-86 92-98 NGT:800 ml bilious GEN: A&0x3, NAD ABD: soft, non-distended, non-tender CBC, BMP 04/27/20 06:55 A/p: 84 yo female with h/o multiple abd surgery now with resolving SBO Continue ngt decompression while awaiting repeat abd films today Abdominal exam benign and hopefully will be able to remove the NGT if ABD xray without signs of obstruction D/w Dr. Roche <Gale Jarrett - Last Filed: 04/27/20 08:21> - Note Progress Note: NGT d/c'ed, clear liquids ordered <Nicole Blake - Last Filed: 04/27/20 16:28>
[2020-04-27 08:30] LABS: BILIRUBIN,TOTAL 1.5 mg/dL (0.2-1); BLOOD UREA NITROGEN 18.1 mg/dL (7-18); CALCIUM 8.1 mg/dL (8.5-10.1); CREATININE 0.7 mg/dL (0.55-1.3); PHOSPHOROUS 2.9 mg/dL (2.5-4.9); POTASSIUM 3.6 mmol/L (3.5-5.1)
[2020-04-27 08:43] LABS: TOT PROT 6.5 g/dl (6.4-8.2)
--- NOTE | 2020-04-27 09:35 | PN ---
Teaching Attending Note Name of Resident: Mane Moore ATTENDING PHYSICIAN STATEMENT I saw and evaluated the patient. I reviewed the resident's note and discussed the case with the resident. I agree with the resident's findings and plan as documented. SUBJECTIVE: Patient does no longer have abdominal pain, no BM/Flatus but + burping , wants the NG-tube out OBJECTIVE: Vital Signs Temperature 99.7 F H 04/27/20 06:00 Pulse Rate 63 04/27/20 06:00 Respiratory Rate 18 04/27/20 06:00 Blood Pressure 139/69 04/27/20 06:00 O2 Sat by Pulse Oximetry (%) 92 L 04/27/20 06:00 PE:per resident's note +NG-tube CBCD WBC 6.2 K/mm3 (4.0-10.0) 04/27/20 06:55 RBC 4.47 M/mm3 (3.60-5.2) 04/27/20 06:55 Hgb 12.5 GM/dL (10.7-15.3) 04/27/20 06:55 Hct 37.1 % (32.4-45.2) D 04/27/20 06:55 MCV 83.0 fl (80-96) 04/27/20 06:55 MCHC 33.8 g/dl (32.0-36.0) 04/27/20 06:55 RDW 14.8 % (11.6-15.6) 04/27/20 06:55 Plt Count 211 K/MM3 (134-434) D 04/27/20 06:55 MPV 8.6 fl (7.5-11.1) 04/27/20 06:55 CMP Sodium 141 mmol/L (136-145) 04/27/20 06:55 Potassium 3.6 mmol/L (3.5-5.1) 04/27/20 06:55 Chloride 105 mmol/L (98-107) 04/27/20 06:55 Carbon Dioxide 32 mmol/L (21-32) 04/27/20 06:55 Anion Gap 4 MMOL/L (8-16) L 04/27/20 06:55 BUN 18.1 mg/dL (7-18) H 04/27/20 06:55 Creatinine 0.7 mg/dL (0.55-1.3) 04/27/20 06:55 Random Glucose 91 mg/dL (74-106) 04/27/20 06:55 Calcium 8.1 mg/dL (8.5-10.1) L 04/27/20 06:55 Total Bilirubin 1.5 mg/dL (0.2-1) H 04/27/20 06:55 AST 12 U/L (15-37) L 04/27/20 06:55 ALT 12 U/L (13-61) L 04/27/20 06:55 Alkaline Phosphatase 53 U/L (45-117) 04/27/20 06:55 Total Protein 6.5 g/dl (6.4-8.2) 04/27/20 06:55 Albumin 3.0 g/dl (3.4-5.0) L 04/27/20 06:55 CARDIAC ENZYMES Troponin I < 0.02 ng/ml (0.00-0.05) 04/26/20 06:20 Current Medications Generic Name Dose Route Start Last Admin Trade Name Freq PRN Reason Stop Dose Admin Acetaminophen 1,000 mg 04/26/20 17:35 04/27/20 05:06 Ofirmev Injection - IVPB 1,000 mg Q6H PRN Administration PAIN LEVEL 1-5 Diltiazem HCl 180 mg 04/27/20 10:00 Cardizem Cd - PO DAILY ABDIRIZAK Heparin Sodium (Porcine) 5,000 unit 04/26/20 22:00 04/27/20 06:22 Heparin - SQ 5,000 unit TID ABDIRIZAK Administration Sodium Chloride 1,000 mls @ 75 mls/hr 04/26/20 09:45 04/26/20 22:55 Normal Saline - IV 75 mls/hr ASDIR ABDIRIZAK Administration Levothyroxine Sodium 25 mcg 04/27/20 07:00 04/27/20 06:22 Synthroid - PO 25 mcg DAILY@0700 ABDIRIZAK Administration Metoprolol Succinate 50 mg 04/26/20 22:00 04/26/20 21:52 Toprol Xl - PO 50 mg HS ABDIRIZAK Administration Metoprolol Succinate 100 mg 04/26/20 15:30 04/26/20 15:48 Toprol Xl - PO 100 mg DAILY ABDIRIZAK Administration Ondansetron HCl 4 mg 04/26/20 17:33 Zofran Injection IVPUSH Q6H PRN NAUSEA Rosuvastatin Calcium 10 mg 04/26/20 22:00 04/26/20 21:52 Crestor - PO 10 mg HS ABDIRIZAK Administration Home Medications Medication Instructions Recorded Metoprolol Succinate 100 mg PO DAILY 09/17/17 Aspirin [ASA -] 81 mg PO DAILY 04/26/20 Diltiazem HCl [Diltiazem 24Hr Cd] 180 mg PO DAILY 04/26/20 Levothyroxine [Synthroid -] 25 mcg PO DAILY 04/26/20 Metoprolol Succinate 50 mg PO HS 04/26/20 Rosuvastatin [Crestor -] 10 mg PO HS 04/26/20 Urine Test Results Urine Color Yellow 04/26/20 09:30 Urine Appearance Clear 04/26/20 09:30 Urine pH 7.0 (5.0-8.0) 04/26/20 09:30 Ur Specific Ray 1.010 (1.010-1.035) 04/26/20 09:30 Urine Protein 1+ (NEGATIVE) H 04/26/20 09:30 Urine Glucose (UA) Negative (NEGATIVE) 04/26/20 09:30 Urine Ketones Negative (NEGATIVE) 04/26/20 09:30 Urine Blood Trace-intact (NEGATIVE) 04/26/20 09:30 Urine Nitrite Negative (NEGATIVE) 04/26/20 09:30 Urine Bilirubin Negative (NEGATIVE) 04/26/20 09:30 Ur Leukocyte Esterase Negative (NEGATIVE) 04/26/20 09:30 Microbiology 04/26/20 09:30 Urine - Urine Clean Catch Urine Culture - Preliminary Lactose Fermenting Neg Bacilli Pending Organism CT showed evidence of SBO. Abd XR: There is some air distention of colon and there are some air-filled loops of small bowel. There is stool in the colon. findings are suggestive of a possible partial small bowel obstruction. ASSESSMENT AND PLAN: This patient is an 84yof with Pmhx of HTN, HLD, GERD, Afib (not on AC), hypothyroidism, SBO 1 year ago(managed medically) presented to the ED c/o having diffuse cramping an abdomianl pain 02/23. and was found to have SBO. # Acute SBO; serial abdominal xray,on NG-tube , further management per surgery # Afib with rate controlled on lopressor continue #Urine Cx: LFB , follow the final cx, patient is asymptomatic #HYPOTHYROIDISM: continue synthroid #Hx of HTN: continue lopresor # Hx of GERD: famotidine if needed #HLD: continue home crestor DVT Px: Heparin 5000 TID
[2020-04-27] MEDS ORDERED: PT OWN MED DRAWER 7, Y5N ONE (10:07)
--- NOTE | 2020-04-27 12:44 | PN ---
Physical Exam: SUBJECTIVE: Patient seen and examined this morning, endorses no pain, no N/V/D. Endorses burping, but denies BM/Flatus. Denies TINEO, CP, SoB, abdominal pain (says it has resolved) OBJECTIVE: Vital Signs Period Temp Pulse Resp BP Sys/Howard Pulse Ox Last 24 Hr 98.8 F-99.8 F 63-77 18-18 138-159/66-79 92-96 GENERAL: The patient is awake, alert, and fully oriented, in no acute distress. HEAD: NG tube in place (300 in canister, dark green), 2L O2 NC, Normal with no signs of trauma. EYES: PERRL, extraocular movements intact, sclera anicteric, conjunctiva clear. No ptosis. ENT: Ears normal, nares patent, oropharynx clear without exudates, moist mucous membranes. NECK: Trachea midline, full range of motion, supple. LUNGS: Breath sounds equal, clear to auscultation bilaterally, no wheezes, no c rackles, no accessory muscle use. HEART: Regular rate and rhythm, S1, S2, murmur noted, rub or gallop. ABDOMEN: Soft, nontender, nondistended, normoactive bowel sounds, EXTREMITIES: 2+ pulses, warm, well-perfused, no edema. NEUROLOGICAL: Normal speech, gait not observed. PSYCH: Normal mood, normal affect. SKIN: Warm, dry, normal turgor, no rashes or lesions noted Laboratory Results - last 24 hr CBC, BMP 04/27/20 06:55 04/27/20 06:55 Active Medications Generic Name Dose Route Start Last Admin Trade Name Elenita PRN Reason Stop Dose Admin Acetaminophen 1,000 mg 04/26/20 17:35 04/27/20 11:29 Ofirmev Injection - IVPB 1,000 mg Q6H PRN Administration PAIN LEVEL 1-5 Diltiazem HCl 180 mg 04/27/20 10:00 04/27/20 10:09 Cardizem Cd - PO 180 mg DAILY ABDIRIZAK Administration Heparin Sodium (Porcine) 5,000 unit 04/26/20 22:00 04/27/20 06:22 Heparin - SQ 5,000 unit TID ABDIRIZAK Administration Sodium Chloride 1,000 mls @ 75 mls/hr 04/26/20 09:45 04/26/20 22:55 Normal Saline - IV 75 mls/hr ASDIR ABDIRIZAK Administration Levothyroxine Sodium 25 mcg 04/27/20 07:00 04/27/20 06:22 Synthroid - PO 25 mcg DAILY@0700 ABDIRIZAK Administration Metoprolol Succinate 50 mg 04/26/20 22:00 04/26/20 21:52 Toprol Xl - PO 50 mg HS ABDIRIZAK Administration Metoprolol Succinate 100 mg 04/26/20 15:30 04/27/20 10:09 Toprol Xl - PO 100 mg DAILY ABDIRIZAK Administration Ondansetron HCl 4 mg 04/26/20 17:33 Zofran Injection IVPUSH Q6H PRN NAUSEA Rosuvastatin Calcium 10 mg 04/26/20 22:00 04/26/20 21:52 Crestor - PO 10 mg HS ABDIRIZAK Administration ASSESSMENT/PLAN: 84 yo F w/ PMHx of HTN, HLD, GERD, Afib (not on AC), hypothyroidism, SBO 1 year ago(managed medically) presented to the ED w/ 1 day of 02/23, diffuse cramping, abdominal pain & x1 NBNB vomiting. States that pain is similar to her previous SBOs. CT showed evidence of SBO. SMALL BOWEL OBSTRUCTION LIKELY 2/2 MULTIPLE ABDOMINAL SURGERIES - CT Abd/Pelv: Recurrent versus persistent distal small bowel obstruction. - Abd XR: There is some air distention of colon and there are some air-filled loops of small bowel. There is stool in the colon. The findings are suggestive of a possible partial small bowel obstruction. - LA: 1.2 (wnl) - T Bili: 1.1 --> 1.5 - AST/ALT: 18 --> 12 - Per Surg: -NG tube DCd -CLD - c/w NS IV Fluids @ 75 - Zofran 4mg Q6PRN AFIB (PREVIOUSLY NOT ON ANTICOAGULATION AT HOME) -c/w Metoprolol 100mg + 50mg -c/w Heparin TID RESOLVED: HYPERCALCEMIA - 10.6 with normal albumin on admission - Corrected Ca today: 8.9 - Vit D: 40.6 - PTH: 23 - Ionized Ca: 5.1 WNL ASYMPTOMATIC URINARY TRACT INFECTION -Afebrile w/ no current WBC - UA: LF GNB (<100,000 CFUs) HYPOTHYROIDISM -c/w Synthroid 25mcg -TSH 2.03 HTN -c/w Metoprolol Succinate 100mg qDaily -c/w Metoprolol Succinate 50mg HS GERD -c/w Zofran PRN -Consider PPI if persistent HLD - c/w Crestor 10mg Daily PPx -DVT: Heparin 5000 TID FEN -NS @ 75 -Monitor Lytes, especially Ca -CLD per surgery Visit type - Emergency Visit Emergency Visit: No - New Patient This patient is new to me today: No - Critical Care Critical Care patient: No - Discharge Referral Referred to [facility] No - Medication Review Med list reviewed for High Risk Meds patients 65 and older: Yes ATTENDING PHYSICIAN STATEMENT I saw and evaluated the patient. I reviewed the resident's note and discussed the case with the resident. I agree with the resident's findings and plan as documented. SUBJECTIVE: OBJECTIVE: ASSESSMENT AND PLAN:
[2020-04-27] MEDS: SODIUM CHLORIDE 1,000 ML IV SCH (13:34)
[2020-04-27] MEDS ORDERED: BENZOCAINE/MENTH/CETYLPYRD CL 1 EACH LOZENGE MM PRN (16:49)
[2020-04-27] MEDS ORDERED: PHENOL 177 ML SPRAY BOTTLE MM PRN (16:49)
[2020-04-27] MEDS: ROSUVASTATIN CA 10 MG TABLET (FP) PO SCH (21:17)
[2020-04-28] MEDS: LEVOTHYROXINE NA 25 MCG TABLET (FP) PO SCH (06:57)
[2020-04-28] MEDS: SODIUM CHLORIDE 1,000 ML IV SCH ×2 (06:57→10:31)
[2020-04-28] MEDS: HEPARIN NA (PORCINE) 5,000 UNITS/ML 1ML VIAL SQ SCH ×2 (06:57→15:05)
--- NOTE | 2020-04-28 09:04 | PN ---
Teaching Attending Note Name of Resident: Kemal Waldrop ATTENDING PHYSICIAN STATEMENT I saw and evaluated the patient. I reviewed the resident's note and discussed the case with the resident. I agree with the resident's findings and plan as documented. SUBJECTIVE: patient feels well, tolerating PO intake, passing gas OBJECTIVE: Vital Signs Period Temp Pulse Resp BP Sys/Howard Pulse Ox Last 24 Hr 98.2 F-99.3 F 63-66 16-18 128-166/52-73 91-97 Physical Exam as per resident note No abdominal pain/tenderness ASSESSMENT AND PLAN: 84 y/o F with Hx of HTN, HLD, GERD, Afib (not on AC), hypothyroidism, SBO, who presents with abdominal pain, found to have SBO SBO: resolved Continue to monitor A. Fib Continue Rate control with cardizem, metoprolol [id number] 4 Patient should be in AC, will discuss with patient risk/benefits Hypothyroidism Synthroids HLD Cont Statin PPx HSQ
--- NOTE | 2020-04-28 09:08 | PN ---
Progress Note (short form) - Note Progress Note: SURGERY 84yo F h/o sbo, seen and examined at bedside. Pt states that she is feeling much better and had a BM last night. Pt tolerating liquids. Pt denies n/v, fever, chills. Last Vital Signs Temp Pulse Resp BP Pulse Ox 98.2 F 63 18 137/65 97 04/28/20 06:00 04/28/20 06:00 04/28/20 06:00 04/28/20 06:00 04/28/20 06:00 CBC, BMP 04/27/20 06:55 04/27/20 06:55 PE: Gen: A&O X3 Resp: breathing comfortably Abd: soft, nontender, nondistended Ext: no edema <Luis Lord - Last Filed: 04/28/20 09:05> - Note Progress Note: Attending Surgeon: I personally saw and examined the patient. My examination reveals a patient with a small bowel obstruction. I discussed the case with the surgical PA and agree with their findings and plan of care with any exceptions as noted. ~ Michael Roche MD, FACS <Michael Roche - Last Filed: 05/05/20 11:57> Problem List - Problems (1) SBO (small bowel obstruction) Assessment/Plan: Plan -pt appears to be doing well, will adv to regular diet. -pt cleared from surgery standpoint if tolerates diet. Pt discussed with Dr. Roche who agrees with plan Code(s): K56.609 - UNSP INTESTNL OBST, UNSP TO PARTIAL VERSUS COMPLETE OBST <Luis Lord - Last Filed: 04/28/20 09:05>
[2020-04-28 10:11] LABS: BASO % 0.5 % (0-2.0); EOS % 5.7 % (0-4.5); HEMATOCRIT 36.4 % (32.4-45.2); HEMOGLOBIN 12.6 GM/dL (10.7-15.3); LYMPH % 25.5 % (8-40); MCH 28.8 pg (25.7-33.7); MCHC 34.7 g/dl (32.0-36.0); MEAN PLT VOLUME 8.5 fl (7.5-11.1); MONO % 15.7 % (3.8-10.2); NEUT % 52.6 % (42.8-82.8); PLATELET COUNT 199 K/MM3 (134-434); RBC 4.38 M/mm3 (3.60-5.2); RDW 14.7 % (11.6-15.6); WHITE BLOOD COUNT 4.9 K/mm3 (4.0-10.0)
[2020-04-28 10:49] LABS: BLOOD UREA NITROGEN 10.3 mg/dL (7-18); CALCIUM 7.9 mg/dL (8.5-10.1); MAGNESIUM 2.2 mg/dL (1.8-2.4); POTASSIUM 3.1 mmol/L (3.5-5.1)
[2020-04-28 10:53] LABS: BILIRUBIN,TOTAL 1.5 mg/dL (0.2-1); CREATININE 0.6 mg/dL (0.55-1.3); PHOSPHOROUS 1.9 mg/dL (2.5-4.9); TOT PROT 6.4 g/dl (6.4-8.2)
--- NOTE | 2020-04-28 14:43 | DS ---
Physical Exam: SUBJECTIVE: Patient seen and examined this morning, in no acute pain, able to tolerate diet. Denies feelings of abdominal fullness. Endorses bowel movements. OBJECTIVE: Vital Signs Period Temp Pulse Resp BP Sys/Howard Pulse Ox Last 24 Hr 98.2 F-99.3 F 63-66 16-18 128-166/52-73 91-97 PHYSICAL EXAM GENERAL: The patient is awake, alert, and fully oriented, in no acute distress. HEAD: Normal with no signs of trauma. EYES: PERRL, extraocular movements intact, sclera anicteric, conjunctiva clear. ENT: Ears normal, nares patent, oropharynx clear without exudates, moist mucous membranes. NECK: Trachea midline, full range of motion, supple. LUNGS: Breath sounds equal, clear to auscultation bilaterally, no wheezes, no crackles, no accessory muscle use. HEART: Regular rate and rhythm, S1, S2 without murmur, rub or gallop. ABDOMEN: Soft, nontender, nondistended, normoactive bowel sounds, no guarding EXTREMITIES: 2+ pulses, warm, well-perfused, no edema. NEUROLOGICAL: Normal speech, gait not observed. PSYCH: Normal mood, normal affect. SKIN: Warm, dry, normal turgor, no rashes or lesions noted. LABS Laboratory Results - last 24 hr 04/26/20 04/28/20 04/28/20 10:40 09:25 09:25 WBC 4.9 RBC 4.38 Hgb 12.6 Hct 36.4 MCV 83.0 MCH 28.8 MCHC 34.7 RDW 14.7 Plt Count 199 MPV 8.5 Absolute Neuts (auto) 2.5 Neutrophils % 52.6 Lymphocytes % 25.5 Monocytes % 15.7 H Eosinophils % 5.7 H D Basophils % 0.5 Nucleated RBC % 0 Sodium 140 Potassium 3.1 L Chloride 104 Carbon Dioxide 31 Anion Gap 6 L BUN 10.3 Creatinine 0.6 Est GFR (CKD-EPI)AfAm 97.69 Est GFR (CKD-EPI)NonAf 84.29 Random Glucose 100 Calcium 7.9 L Ionized Calcium 5.1 Phosphorus 1.9 L Magnesium 2.2 Total Bilirubin 1.5 H AST 13 L ALT 12 L Alkaline Phosphatase 46 Total Protein 6.4 Albumin 3.0 L HOSPITAL COURSE: Date of Admission:04/26/20 CT ABD/PELV: In comparison to a prior CT exam of 06/16/2018 note is made of a recurrent versus persistent distal small bowel obstruction. A surgical anast omosis is again seen within the small bowel at the level of the pelvis. No large vessel arterial stenosis or occlusion is seen. There is no CT evidence of portomesenteric venous thrombosis No CT evidence of acute appendicitis or diverticulitis. Status post cholecystectomy as on the prior exam. Note is again made of mild common bile duct dilatation. Status post hysterectomy. No evidence of pneumoperitoneum, abscess or free intraperitoneal fluid. The spleen, pancreas, right adrenal gland and kidneys demonstrate no discrete pathology. There is no aortic aneurysm. No definite lymphadenopathy is identified. Note is made of minimal focal thickening of the lateral limb of the left adrenal gland without interval change consistent with an adenoma. Date of Discharge: 04/28/20 84F w/ PMHx of HTN, HLD, GERD, afib not on AC, hypothyroidism, SBO one year ago managed medically complained of acute onset nausea, vomiting abdominal pain. She reports that the pain began acutely at approx 5PM 1 day prior to admission with diffuse cramping 8/10 pain associated with nausea, x1 nbnb vomiting. She reports hx cholecystectomy, partial bowel resection. She reported passing a small amount of gas since pain onset, with no bowel movements on day of admission. ER course was notable for: (1)1.5 L of LR given in ED, NG tube placed with 400 cc suction (2)10.8 leukocytosis (3)pt made npo, Sx consulted The patient was admitted to the medical floors where CT imaging described a persistent distal small bowel obstruction. Surgery was consulted and determined that surgical intervention was not necessary at the time and put in an NG tube, and made the ptn NPO and started fluids. NG tube was set to suction and the patient began to feel better. Following removal of the NG tube, and a trial of CLD, the patient began to feel better. The patient's bowel movements returned and they were cleared by Sx. At the time of DC, the patient was medically stable to go home. Minutes to complete discharge: 36 Discharge Summary Problems reviewed: Yes Reason For Visit: SMALL BOWEL OBSTRUCTION DUE TO ADHESIONS Condition: Stable - Instructions Diet, Activity, Other Instructions: YOUR VISIT You came to the hospital because you were experiencing belly pain. You were admitted to the hospital for a condition called, "small bowel obstruction" which means you were unable to have proper bowel movements. You had a nasogastric tube placed, which improved your symptoms. You are now stable and may return home. During your hospital stay you were also found to have: 1.) High levels of calcium 2.) CAT Scan: Evidence of an adrenal adenoma and mild common bile duct dilation, which you should discuss with your primary care provider. An adrenal adenoma is a benign tumor of the adrenal glands. Please make a follow up appointment with your primary care doctor in 3 months to get new/repeat imaging. MEDICATIONS -Please STOP taking calcium supplements until you are evaluated by your primary care physician. Due to your heart condition, "atrial fibrilation" and other personal health factors, it is recommended you take an anticoagulant medication. After discussion of risks/benefits you will continue with your home aspirin and follow up this matter with your primary care doctor. Please be sure to clarify this point at your next appointment. -Please continue to take your other home medications as prescribed. ADDITIONAL CARE -Please make an appointment to see Dr. Cliff Sterling (Primary Care) in 2 weeks, for evaluation of your recent hospital stay. -Please make an appointment to see Dr. Michael Roche (General Surgery) in 1 week for evaluation of your small bowel obstruction. ADDITIONAL INFORMATION -Please call 911 or come directly to the emergency department if you experience recurrence of the symptoms that brought you to the hospital, unusual headache, vision change, shortness of breath, chest pain, numbness, tingling, loss of a lertness/awareness, loss of function, unusual bleeding or any alarming symptoms. Referrals: Michael Roche MD [Staff Physician] - 1 Week Cliff Sterling MD [Primary Care Provider] - 2 Weeks (Recent admit for SBO) Disposition: HOME - Home Medications Comprehensive Discharge Medication List: Ambulatory Orders Metoprolol Succinate 100 mg PO DAILY 09/17/17 Aspirin [ASA -] 81 mg PO DAILY 04/26/20 Diltiazem HCl [Diltiazem 24Hr ER (Cd)] 180 mg PO DAILY 04/26/20 Levothyroxine [Synthroid -] 25 mcg PO DAILY 04/26/20 Metoprolol Succinate 50 mg PO HS 04/26/20 Rosuvastatin [Crestor -] 10 mg PO HS 04/26/20 Cyanocobalamin [Vitamin B12 -] 100 mcg PO DAILY 04/27/20 Vit A/Vit C/Vit E/Zinc/Copper [Preservision Areds Softgel] 2 each PO DAILY 04/27/20 This patient is new to me today: No Emergency Visit: No Critical Care patient: No - Discharge Referral Referred to [facility] No ATTENDING PHYSICIAN STATEMENT I saw and evaluated the patient. I reviewed the resident's note and discussed the case with the resident. I agree with the resident's findings and plan as documented. SUBJECTIVE: OBJECTIVE: ASSESSMENT AND PLAN:
[2020-04-28 15:58] VITALS: BP 131/65; PULSE 71; TEMP 99.4
== END 2020-04-28 18:26 | disposition home or self-care (01) | DRG 389 ==
LOC: JER 03:22 → JERBED 06:55 → J5S 10:58
PROVIDERS: ADMIT Internal Medicine; ATTEND Internal Medicine
PROC: 0DH673Z Insertion of Infusion Device into Stomach, Via Natural or Artificial Opening (ICD-10-PCS; principal; 2020-04-26)
DX: K56.50 Intestinal adhesions [bands], unspecified as to partial versus complete obstruction (principal); E87.2 Acidosis; E78.5 Hyperlipidemia, unspecified; I10 Essential (primary) hypertension; K21.9 Gastro-esophageal reflux disease without esophagitis; I48.91 Unspecified atrial fibrillation; E03.9 Hypothyroidism, unspecified; D72.829 Elevated white blood cell count, unspecified; E83.52 Hypercalcemia; E86.0 Dehydration; E27.9 Disorder of adrenal gland, unspecified; E78.6 Lipoprotein deficiency; R11.2 Nausea with vomiting, unspecified
CPT/HCPCS: 36415; 71045-TC-FY; 74019-TC-FY; 74175-TC; 80053; 81003; 82306; 82330; 83605; 83690; 83735; 83970; 84100; 84443; 84484; 85025; 85610; 85730; 86850; 86900; 86901; 87086; 87186; 93005; 93010; 99285-25; C9803; J0131; J1644; U0003

== ENCOUNTER 2020-12-21 18:06 | Inpatient (IN) | payer OTHER, MEDICARE ==
[2020-12-21] MEDS ORDERED: ONDANSETRON 4 MG/2 ML VIAL IVPB STA (18:41)
[2020-12-21] MEDS ORDERED: ONDANSETRON 4 MG/2 ML VIAL ONE (18:52)
[2020-12-21] MEDS ORDERED: SODIUM CHLORIDE 1,000 ML IV STA (18:57)
[2020-12-21 19:43] LABS: BASO % 0.4 % (0-2.0); EOS % 0.9 % (0-4.5); HEMATOCRIT 41.6 % (32.4-45.2); HEMOGLOBIN 14.4 GM/dL (10.7-15.3); LYMPH % 12.4 % (8-40); MCH 28.6 pg (25.7-33.7); MCHC 34.5 g/dl (32.0-36.0); MEAN CELL VOLUME 82.8 fl (80-96); MEAN PLT VOLUME 8.2 fl (7.5-11.1); MONO % 7.8 % (3.8-10.2); NEUT % 78.5 % (42.8-82.8); PLATELET COUNT 255 K/MM3 (134-434); RBC 5.02 M/mm3 (3.60-5.2); RDW 13.9 % (11.6-15.6); WHITE BLOOD COUNT 11.1 K/mm3 (4.0-10.0)
[2020-12-21 19:57] LABS: CHLORIDE 98 mmol/L (98-107); SODIUM 135 mmol/L (136-145)
[2020-12-21 20:00] LABS: ALBUMIN 3.9 g/dl (3.4-5.0); CALCIUM 9.5 mg/dL (8.5-10.1)
[2020-12-21 20:01] LABS: ANION GAP 8 MMOL/L (8-16); BLOOD UREA NITROGEN 13.2 mg/dL (7-18); CO2 29 mmol/L (21-32); GLUCOSE,RANDOM 115 mg/dL (74-106); LIPASE 120 U/L (73-393)
[2020-12-21 20:02] LABS: MAGNESIUM 2.5 mg/dL (1.8-2.4)
[2020-12-21 20:04] LABS: CREATININE 0.6 mg/dL (0.55-1.3); SGOT/AST 22 U/L (15-37); SGPT/ALT 19 U/L (13-61)
[2020-12-21 20:05] LABS: BILIRUBIN,TOTAL 1.2 mg/dL (0.2-1); TOT PROT 7.7 g/dl (6.4-8.2)
[2020-12-21 20:06] LABS: ALK PHOS 76 U/L (45-117)
[2020-12-21] MEDS ORDERED: ACETAMINOPHEN INJECTION 100 ML IVPB ONE (20:38)
[2020-12-21] MEDS ORDERED: ACETAMINOPHEN 1000 MG/100 ML VIAL (NON FORMULARY) IVPB ONE (20:38)
[2020-12-21 21:51] LABS: EPI CELLS 8 /uL (0-25.1); HYALINE CASTS 0 /uL (0-3.1); PH,URINE 7.5 (5.0-8.0); URINE APPEARANCE CLEAR; URINE BACTERIA 54 /uL (0-1359); URINE BILIRUBIN NEGATIVE (NEGATIVE); URINE COLOR YELLOW; URINE GLUCOSE (UA) NEGATIVE (NEGATIVE); URINE KETONE NEGATIVE (NEGATIVE); URINE LEUK ESTERASE TRACE (NEGATIVE); URINE NITRITE NEGATIVE (NEGATIVE); URINE PROTEIN NEGATIVE (NEGATIVE); URINE RBC 4 /uL (0-23.9); URINE UROBILINOGEN 0.2 mg/dL (0.2-1.0); URINE WBC 9 /uL (0-25.8)
[2020-12-21] MEDS ORDERED: HYDROmorphone HCL CARPU-JECT 2 MG/1 ML DISP.SYRIN IVPUSH ONE (22:52)
[2020-12-21] MEDS ORDERED: HYDROmorphone HCl 2 MG/ML VIAL ONE (22:55)
[2020-12-21] MEDS ORDERED: LIDOCAINE HCL 2% JELLY 10 ML CARTRIDGE ONE (23:06)
[2020-12-22] MEDS ORDERED: ACETAMINOPHEN 1000 MG/100 ML VIAL (NON FORMULARY) IVPB PRN (00:06)
[2020-12-22] MEDS ORDERED: SODIUM CHLORIDE 1,000 ML IV SCH ×2 (00:15→00:29)
[2020-12-22] MEDS ORDERED: LEVOTHYROXINE NA 25 MCG TABLET (FP) PO SCH (07:00)
[2020-12-22 07:22] VITALS: BMI 28.4
[2020-12-22 08:41] LABS: BASO % 0.1 % (0-2.0); HEMOGLOBIN 15.8 GM/dL (10.7-15.3); LYMPH % 6.3 % (8-40); MCH 28.5 pg (25.7-33.7); MCHC 33.6 g/dl (32.0-36.0); MEAN CELL VOLUME 84.7 fl (80-96); MEAN PLT VOLUME 8.3 fl (7.5-11.1); MONO % 6.3 % (3.8-10.2); NEUT % 87.3 % (42.8-82.8); PLATELET COUNT 262 K/MM3 (134-434); RBC 5.54 M/mm3 (3.60-5.2); RDW 14.5 % (11.6-15.6); WHITE BLOOD COUNT 11.7 K/mm3 (4.0-10.0)
[2020-12-22 08:48] LABS: INR 0.97 (0.83-1.09); PROTHROMBIN TIME (PATIENT) 11.7 SEC (9.7-13.0)
[2020-12-22 09:09] LABS: CALCIUM 9.5 mg/dL (8.5-10.1)
[2020-12-22 09:10] LABS: ALBUMIN 3.8 g/dl (3.4-5.0); BLOOD UREA NITROGEN 12.3 mg/dL (7-18); MAGNESIUM 2.6 mg/dL (1.8-2.4)
[2020-12-22 09:13] LABS: CREATININE 0.6 mg/dL (0.55-1.3); PHOSPHOROUS 4.8 mg/dL (2.5-4.9)
[2020-12-22 09:16] LABS: BILIRUBIN,TOTAL 0.9 mg/dL (0.2-1); TOT PROT 7.9 g/dl (6.4-8.2)
[2020-12-22] MEDS: SODIUM CHLORIDE 1,000 ML IV SCH ×2 (11:11→19:44)
[2020-12-22] MEDS ORDERED: METOPROLOL TARTRATE 5 MG/5 ML VIAL IVPUSH PRN ×2 (12:12→12:14)
[2020-12-22] MEDS ORDERED: PT OWN MED DRAWER 7, Y5N ONE ×3 (13:45→20:57)
[2020-12-22] MEDS: LEVOTHYROXINE SODIUM 100 MCG VIAL IVPUSH SCH (14:03)
[2020-12-22] MEDS: METOPROLOL TARTRATE 5 MG/5 ML VIAL IVPB PRN ×2 (14:03→21:27)
[2020-12-22] MEDS: ENOXAPARIN NA (PORCINE) 40 MG/0.4 ML DISP.SYRIN SQ SCH (18:42)
[2020-12-22] MEDS: ASPIRIN 81 MG CHEWABLE TABLETS PO SCH (21:09)
[2020-12-22] MEDS: ROSUVASTATIN CA 10 MG TABLET (FP) PO SCH (21:09)
[2020-12-23] MEDS: METOPROLOL TARTRATE 5 MG/5 ML VIAL IVPB PRN (05:21)
[2020-12-23] MEDS: SODIUM CHLORIDE 1,000 ML IV SCH ×3 (06:35→20:31)
[2020-12-23 08:26] LABS: HEMATOCRIT 40.1 % (32.4-45.2); HEMOGLOBIN 13.8 GM/dL (10.7-15.3); MCHC 34.4 g/dl (32.0-36.0); MEAN CELL VOLUME 84.3 fl (80-96); MEAN PLT VOLUME 8.2 fl (7.5-11.1); PLATELET COUNT 240 K/MM3 (134-434); RBC 4.76 M/mm3 (3.60-5.2); RDW 14.3 % (11.6-15.6); WHITE BLOOD COUNT 8.7 K/mm3 (4.0-10.0)
[2020-12-23 08:54] LABS: BLOOD UREA NITROGEN 16.8 mg/dL (7-18)
[2020-12-23 08:55] LABS: CALCIUM 8.5 mg/dL (8.5-10.1)
[2020-12-23 08:59] LABS: CREATININE 0.7 mg/dL (0.55-1.3)
[2020-12-23] MEDS: ASPIRIN 81 MG CHEWABLE TABLETS PO SCH (09:28)
[2020-12-23] MEDS ORDERED: PT OWN MED DRAWER 7, Y5N ONE (09:42)
[2020-12-23] MEDS: ENOXAPARIN NA (PORCINE) 40 MG/0.4 ML DISP.SYRIN SQ SCH (09:46)
[2020-12-23] MEDS: LEVOTHYROXINE SODIUM 100 MCG VIAL IVPUSH SCH (09:46)
[2020-12-23] MEDS ORDERED: ACETAMINOPHEN 500 MG TABLET (FP) PO ONE (17:01)
[2020-12-23] MEDS: ROSUVASTATIN CA 10 MG TABLET (FP) PO SCH (21:36)
[2020-12-24] MEDS: METOPROLOL TARTRATE 5 MG/5 ML VIAL IVPB PRN (02:23)
[2020-12-24] MEDS ORDERED: LEVOTHYROXINE NA 25 MCG TABLET (FP) PO SCH (07:00)
[2020-12-24] MEDS: SODIUM CHLORIDE 1,000 ML IV SCH (07:05)
[2020-12-24] MEDS: ENOXAPARIN NA (PORCINE) 40 MG/0.4 ML DISP.SYRIN SQ SCH (09:27)
[2020-12-24] MEDS: ASPIRIN 81 MG CHEWABLE TABLETS PO SCH (09:27)
[2020-12-24] MEDS ORDERED: SIMETHICONE 40 MG/0.6 ML BOTTLE PO PRN (10:53)
[2020-12-24 15:18] VITALS: BP 120/67; PULSE 68; TEMP 97.5
[2020-12-24] MEDS ORDERED: APIXABAN 5 MG TABLET PO SCH (22:00)
== END 2020-12-24 17:50 | disposition home or self-care (01) | DRG 390 ==
LOC: JER 18:06 → JERBED 22:17 → J5S 12-22 05:51
PROVIDERS: ADMIT Internal Medicine; ATTEND Student in an Organized Health Care Education/Training Program
PROC: 0D9670Z Drainage of Stomach with Drainage Device, Via Natural or Artificial Opening (ICD-10-PCS; principal; 2020-12-21)
DX: K56.609 Unspecified intestinal obstruction, unspecified as to partial versus complete obstruction (principal); I10 Essential (primary) hypertension; E78.5 Hyperlipidemia, unspecified; K21.9 Gastro-esophageal reflux disease without esophagitis; E03.9 Hypothyroidism, unspecified; R10.32 Left lower quadrant pain; D72.829 Elevated white blood cell count, unspecified; I48.0 Paroxysmal atrial fibrillation
CPT/HCPCS: 36415; 71045-TC-FY; 74019-TC-FY; 74177-TC; 80048; 80053; 81003; 82550; 83605; 83690; 83735; 84100; 84443; 84484; 85025; 85027; 85610; 87086; 93005; 93010; 97116-GP; 97162-GP; 99285-25; C9803; J0131; Q9967; U0003; U0005

== ENCOUNTER 2022-11-09 02:42 | Inpatient (IN) | payer OTHER, MEDICARE ==
[2022-11-09 02:52] VITALS: BMI 27.4
[2022-11-09] MEDS ORDERED: ACETAMINOPHEN 1000 MG/100 ML BAG IVPB ONE (03:04)
[2022-11-09] MEDS ORDERED: SODIUM CHLORIDE 0.9% 500 ML INFUS.BAG IV ONE ×2 (03:04→04:21)
[2022-11-09] MEDS ORDERED: ONDANSETRON 4 MG/2 ML VIAL IVPUSH ONE ×2 (03:04→07:11)
[2022-11-09] MEDS ORDERED: ACETAMINOPHEN INJECTION 100 ML IVPB ONE (03:20)
[2022-11-09] MEDS ORDERED: ONDANSETRON 4 MG/2 ML VIAL ONE ×2 (03:20→07:33)
[2022-11-09 03:56] LABS: BASO % 0.6 % (0-2.0); EOS % 0.4 % (0-4.5); HEMATOCRIT 49.1 % (32.4-45.2); LYMPH % 12.4 % (8-40); MCH 28.1 pg (25.7-33.7); MCHC 34.7 g/dl (32.0-36.0); MEAN CELL VOLUME 81.1 fl (80-96); MEAN PLT VOLUME 7.9 fl (7.5-11.1); NEUT % 78.6 % (42.8-82.8); PLATELET COUNT 384 10^3/uL (134-434); RBC 6.05 M/mm3 (3.60-5.2); RDW 15.5 % (11.6-15.6); WHITE BLOOD COUNT 14.4 K/mm3 (4.0-10.0)
[2022-11-09 03:57] LABS: INR 1.24 (0.83-1.09); PROTHROMBIN TIME (PATIENT) 14.3 SEC (9.7-13.0)
[2022-11-09 04:00] LABS: ACTIVATED PTT 34.4 SECONDS (25.2-36.5)
[2022-11-09 04:18] LABS: ALBUMIN 4.4 g/dl (3.4-5.0); BLOOD UREA NITROGEN 18.3 mg/dL (7-18); MAGNESIUM 2.4 mg/dL (1.8-2.4)
[2022-11-09 04:21] LABS: CREATININE 1.1 mg/dL (0.55-1.3)
[2022-11-09 04:22] LABS: BILIRUBIN,TOTAL 1.3 mg/dL (0.2-1); TOT PROT 9.2 g/dl (6.4-8.2)
[2022-11-09 04:24] LABS: LACTIC ACID 4.9 mmol/L (0.4-2.0)
[2022-11-09] MEDS ORDERED: DEXTROSE 5%-LACTATED RINGERS 1,000 ML IV SCH (07:00)
[2022-11-09 07:04] LABS: LACTIC ACID 3.3 mmol/L (0.4-2.0)
[2022-11-09] MEDS ORDERED: METOPROLOL TARTRATE 5 MG/5 ML VIAL IVPUSH PRN (09:03)
[2022-11-09] MEDS ORDERED: AZTREONAM 2 GM in DEXTROSE 5%-WATER 100 ML IVPB SCH ×2 (09:45→10:30)
[2022-11-09] MEDS ORDERED: CEFTRIAXONE 1,000 MG in DEXTROSE 5%-WATER - 50 ML IVPB SCH (10:00)
[2022-11-09] MEDS ORDERED: APIXABAN 5 MG TABLET PO SCH (10:00)
[2022-11-09] MEDS ORDERED: ACETAMINOPHEN 1000 MG/100 ML BAG IVPB PRN (10:13)
[2022-11-09] MEDS ORDERED: AZTREONAM 2 GM VIAL (RESTRICTED TO ID) ONE (10:43)
[2022-11-09] MEDS: LEVOTHYROXINE NA 25 MCG TABLET (FP) PO SCH (12:01)
[2022-11-09] MEDS ORDERED: HEPARIN NA (PORCINE) 5,000 UNITS/ML 1ML VIAL SQ SCH (14:00)
[2022-11-09] MEDS: DEXTROSE 5%-LACTATED RINGERS 1,000 ML IV SCH (17:34)
[2022-11-09] MEDS ORDERED: AZTREONAM 1 GM VIAL (RESTRICTED TO ID) ONE (17:47)
[2022-11-09] MEDS: AZTREONAM 1 GM in DEXTROSE 5%-WATER - 50 ML IVPB SCH (18:39)
[2022-11-09] MEDS: ROSUVASTATIN CA 10 MG TABLET PO SCH (23:10)
[2022-11-10] MEDS: DEXTROSE 5%-LACTATED RINGERS 1,000 ML IV SCH ×2 (00:24→10:42)
[2022-11-10] MEDS: AZTREONAM 1 GM in DEXTROSE 5%-WATER - 50 ML IVPB SCH ×3 (02:17→17:38)
[2022-11-10] MEDS: LEVOTHYROXINE NA 25 MCG TABLET (FP) PO SCH (06:12)
[2022-11-10 08:54] LABS: BASO % 0.4 % (0-2.0); EOS % 2.7 % (0-4.5); HEMATOCRIT 40.2 % (32.4-45.2); MCH 28.1 pg (25.7-33.7); MCHC 34.9 g/dl (32.0-36.0); MEAN CELL VOLUME 80.5 fl (80-96); MEAN PLT VOLUME 8.3 fl (7.5-11.1); MONO % 13.2 % (3.8-10.2); NEUT % 62.7 % (42.8-82.8); PLATELET COUNT 265 10^3/uL (134-434); RBC 4.99 M/mm3 (3.60-5.2); RDW 15.6 % (11.6-15.6); WHITE BLOOD COUNT 7.6 K/mm3 (4.0-10.0)
[2022-11-10 09:14] LABS: BLOOD UREA NITROGEN 16.4 mg/dL (7-18)
[2022-11-10 09:17] LABS: CREATININE 0.8 mg/dL (0.55-1.3); PHOSPHOROUS 2.8 mg/dL (2.5-4.9)
[2022-11-10 09:19] LABS: BILIRUBIN,TOTAL 1.6 mg/dL (0.2-1)
[2022-11-10 09:33] LABS: ALBUMIN 3.2 g/dl (3.4-5.0); CALCIUM 8.7 mg/dL (8.5-10.1); TOT PROT 6.7 g/dl (6.4-8.2)
[2022-11-10] MEDS ORDERED: PHENOL 177 ML SPRAY BOTTLE MM PRN (10:08)
[2022-11-10] MEDS: KCL 10 MEQ IVPB 10 MEQ/100 ML INFUS.BAG IVPB SCH ×3 (10:49→13:26)
[2022-11-10] MEDS: METOPROLOL TARTRATE 5 MG/5 ML VIAL IVPB SCH ×2 (10:52→14:42)
[2022-11-10] MEDS: ROSUVASTATIN CA 10 MG TABLET PO SCH (21:41)
[2022-11-10] MEDS ORDERED: APIXABAN 5 MG TABLET PO SCH (22:00)
[2022-11-11] MEDS: AZTREONAM 1 GM in DEXTROSE 5%-WATER - 50 ML IVPB SCH ×2 (02:46→10:16)
[2022-11-11] MEDS: LEVOTHYROXINE NA 25 MCG TABLET (FP) PO SCH (06:00)
[2022-11-11] MEDS: APIXABAN 5 MG TABLET PO SCH (22:27)
[2022-11-11] MEDS: ROSUVASTATIN CA 10 MG TABLET PO SCH (22:27)
[2022-11-12] MEDS: LEVOTHYROXINE NA 25 MCG TABLET (FP) PO SCH (06:25)
[2022-11-12 09:25] LABS: BASO % 0.7 % (0-2.0); EOS % 4.3 % (0-4.5); HEMATOCRIT 38.3 % (32.4-45.2); HEMOGLOBIN 13.4 GM/dL (10.7-15.3); LYMPH % 25.4 % (8-40); MCH 28.3 pg (25.7-33.7); MCHC 34.8 g/dl (32.0-36.0); MEAN CELL VOLUME 81.2 fl (80-96); MEAN PLT VOLUME 8.3 fl (7.5-11.1); MONO % 13.3 % (3.8-10.2); NEUT % 56.3 % (42.8-82.8); PLATELET COUNT 251 10^3/uL (134-434); RBC 4.72 M/mm3 (3.60-5.2); RDW 15.4 % (11.6-15.6); WHITE BLOOD COUNT 6.5 K/mm3 (4.0-10.0)
[2022-11-12 09:48] LABS: CALCIUM 8.6 mg/dL (8.5-10.1)
[2022-11-12 09:49] LABS: ALBUMIN 3.1 g/dl (3.4-5.0)
[2022-11-12 09:52] LABS: CREATININE 0.6 mg/dL (0.55-1.3)
[2022-11-12] MEDS: APIXABAN 5 MG TABLET PO SCH (09:52)
[2022-11-12 09:53] LABS: BILIRUBIN,TOTAL 1.6 mg/dL (0.2-1); TOT PROT 6.6 g/dl (6.4-8.2)
[2022-11-12 12:06] VITALS: BP 131/74; PULSE 91; RESP 20; TEMP 97.8
== END 2022-11-12 11:55 | disposition home or self-care (01) | DRG 390 ==
LOC: JER 02:42 → JERBED 09:45 → J8W 21:19
PROVIDERS: ADMIT Internal Medicine; ATTEND Nurse Practitioner Family
PROC: 0D9670Z Drainage of Stomach with Drainage Device, Via Natural or Artificial Opening (ICD-10-PCS; principal; 2022-11-09)
DX: K56.699 Other intestinal obstruction unspecified as to partial versus complete obstruction (principal); D72.829 Elevated white blood cell count, unspecified; I10 Essential (primary) hypertension; E78.5 Hyperlipidemia, unspecified; E03.9 Hypothyroidism, unspecified; I48.91 Unspecified atrial fibrillation
CPT/HCPCS: 0241U-QW; 36415; 71045-TC-FY; 71275-TC; 74019-TC-FY; 74174-TC; 80053; 83036; 83605; 83690; 83735; 84100; 84484; 85025; 85610; 85730; 86850; 86900; 86901; 93005; 93010; 94010; 97116-GP; 97162-GP; 99285-25; Q9967